=== PATIENT | female | born 1990 | race Caucasian/White ===

== ENCOUNTER 2016-07-03 13:50 | Inpatient (IN) | payer OTHER ==
[2016-07-03 14:04] VITALS: BMI 19.5
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
[2016-07-03] MEDS ORDERED: IBUPROFEN 400 MG TABLET (FP) PO PRN (16:43)
[2016-07-03] MEDS ORDERED: LOPERAMIDE HCL 2 MG CAPSULE PO PRN (16:43)
[2016-07-03] MEDS ORDERED: MAGNESIUM CITRATE 300 ML BOTTLE PO PRN (16:43)
[2016-07-03] MEDS ORDERED: MAG HYDROX/AL HYDROX/SIMETH 30 ML UNIT-DOSE CUP PO PRN (16:43)
[2016-07-03] MEDS ORDERED: MAGNESIUM HYDROX 2400MG/30ML ORAL SUSPENSION 30 ML CUP PO PRN (16:43)
[2016-07-03] MEDS ORDERED: P-EPHED 60MG/TRIPROLIDI 2.5MG TABLET PO PRN (16:43)
[2016-07-03] MEDS ORDERED: ACETAMINOPHEN 325 MG TABLET (FP) PO PRN (16:43)
[2016-07-03] MEDS ORDERED: MENTHOL/PHENOL 1 EACH UD MM PRN (16:43)
[2016-07-03] MEDS ORDERED: NICOTINE POLACRILEX 2 MG GUM BC PRN (16:43)
[2016-07-03] MEDS ORDERED: guaiFENesin/D-METHORPHAN HB 10 ML UNIT-DOSE CUPS PO PRN (16:43)
[2016-07-03] MEDS ORDERED: METHADONE HCL 10 MG TABLET (FOR DETOX USE ONLY) PO ONE ×2 (18:00→23:00)
[2016-07-03] MEDS: chlordiazePOXIDE HCL 25 MG CAPSULE PO PRN (18:51)
[2016-07-03] MEDS: TRIAMCINOLONE ACET 0.1% OINT 15 GM TUBE TP SCH ×2 (18:59→22:16)
[2016-07-03] MEDS: BACITRACIN 0.9 GM PACKET TP SCH (22:16)
[2016-07-03] MEDS: THIAMINE HCL 100 MG TABLET (FP) PO SCH (22:17)
[2016-07-03] MEDS: chlordiazePOXIDE HCL 25 MG CAPSULE PO SCH (22:17)
[2016-07-03] MEDS: diphenhydrAMINE HCL 50 MG CAPSULE PO PRN (22:17)
[2016-07-03 22:50] LABS: URINE APPEARANCE CLEAR; URINE BILIRUBIN NEGATIVE (NEGATIVE); URINE BLOOD NEGATIVE (NEGATIVE); URINE COLOR YELLOW; URINE GLUCOSE (UA) NEGATIVE (NEGATIVE); URINE KETONE NEGATIVE (NEGATIVE); URINE LEUK ESTERASE NEGATIVE (NEGATIVE); URINE NITRITE NEGATIVE (NEGATIVE); URINE PROTEIN NEGATIVE (NEGATIVE); URINE UROBILINOGEN NEGATIVE E.U./dl (0.2-1.0)
[2016-07-04] MEDS: chlordiazePOXIDE HCL 25 MG CAPSULE PO SCH ×4 (05:14→22:13)
--- NOTE | 2016-07-04 08:02 | CONSULT ---
[facility] Psychiatric Consult - Data Date of interview: 07/04/16 Admission source: [facility] Identifying data: Linda is 25 years old female with no psychiatric hospiotalization history intoxicated with: Alcohol, Opioids, with history of PCP abuse Substance Abuse History: - Smoking Cessation. Smoking history: Current every day smoker. Have you smoked in the past 12 months: Yes. Aproximately how many cigarettes per day: 10. Cigars Per Day: 0. Hx Chewing Tobacco Use: No. Initiated information on smoking cessation: Yes. 'Breaking Loose' booklet given : 07/03/16. - Substance & Tx. History. Hx Alcohol Use: Yes. Hx Substance Use : Yes. Substance Use Type: Alcohol, Cocaine, Opiates. Hx Substance Use Treatment: Yes. - Substances Abused. Heroin. Route: Injection. Frequency : Daily. Amount used: 40 bags. Age of first use: 23. Date of Last Use: . Alcohol-vodka. Route: Oral. Frequency: Daily. Amount used: 1 1/2 pts volka. Age of first use: 16. Date of Last Use: 07/03/16 Medical History: Psoriasis, Weight loss, Syncope history Psychiatric History: Denies past psychiatrtic comtact, as per computer there is a depression history Physical/Sexual Abuse/Trauma History: Denies Additional Comment: Observation. Detox Unit Care Protocol Mental Status Exam - Mental Status Exam Alert and Oriented to: Person Cognitive Function: Fair Patient Appearance: Unkempt Mood: Sad Affect: Flat Patient Behavior: Sedated Speech Pattern: Delayed Voice Loudness: Mildly Soft/Quiet Thought Process: Circumstantial Thought Disorder: Being Controlled Hallucinations: Denies Suicidal Ideation: Denies Homicidal Ideation: Denies Insight/Judgement: Fair Sleep: Difficulty falling asleep Appetite: Weight loss Muscle strength/Tone: Normal Gait/Station: Shuffling Additional Comments: Observation. Detox Unit Care Protocol Psychiatric Findings - Problem List ([place] 1, 2,3) (1) Alcohol dependence with uncomplicated withdrawal Current Visit: Yes Status: Acute (2) Nicotine dependence Current Visit: Yes Status: Acute Qualifiers: Nicotine product type: cigarettes Substance use status: in withdrawal Qualified Code(s): F17.213 - Nicotine dependence, cigarettes, with withdrawal (3) Opioid dependence with withdrawal Current Visit: Yes Status: Acute (4) Alcohol dependence Current Visit: No Status: Acute Qualifiers: Substance use status: in withdrawal Complication of substance-induced condition: uncomplicated Qualified Code(s): F10.230 - Alcohol dependence with withdrawal, uncomplicated (5) PCP (phencyclidine) abuse Current Visit: No Status: Acute (6) Substance-induced sleep disorder Current Visit: No Status: Acute (7) Drug-induced mood disorder Current Visit: Yes Status: Acute - Initial Treatment Plan Initial Treatment Plan: Observation. Detox Unit Care Protocol
[2016-07-04] MEDS ORDERED: METHADONE HCL 10 MG TABLET (FOR DETOX USE ONLY) PO SCH (10:00)
--- NOTE | 2016-07-04 10:00 | PN ---
[facility] CIWA - CIWA Score Nausea/Vomitin-No Nausea/No Vomiting Muscle Tremors: 4-Moderate,w/Arms Extend Anxiety: 3 Agitation: 3 Paroxysmal Sweats: 3 Orientation: 0-Oriented Tacttile Disturbances: 0-None Auditory Disturbances: 0-None Visual Disturbances: 0-None Headache: 0-None Present CIWA-Ar Total Score: 13 BHS COWS - Scale Resting Pulse: 1= [place] 81-100 Sweatin=Flushed/Facial Moisture Restless Observation: 1= Difficult to Sit Still Pupil Size: 0= Normal to Room Light Bone or Joint Aches: 2= Severe Diffuse Aches Runny Nose/ Eye Tearin= Nasal Congestion GI Upset > 30mins: 2= Nausea/Diarrhea Tremor Observation of Outstretched Hands: 2= Slight Tremor Visible Yawning Observation: 2= >3x During Session Anxiety or Irritability: 2=Irritable/Anxious Goose Flesh Skin: 0=Smooth Skin COWS Score: 15 S Progress Note (SOAP) Subjective: nasal congestion interrupted sleep sweats shakes body aches nausea Objective: 07/04/16 09:59 Vital Signs Temperature 97.5 F L 07/04/16 06:00 Pulse Rate 70 07/04/16 06:00 Respiratory Rate 16 07/04/16 06:00 Blood Pressure 104/71 07/04/16 06:00 O2 Sat by Pulse Oximetry (%) Laboratory Tests 07/03/16 22:41 Urine Color Yellow Urine Appearance Clear Urine pH 6.0 Ur Specific [place] 1.028 Urine Protein Negative Urine Glucose (UA) Negative Urine Ketones Negative Urine Blood Negative Urine Nitrite Negative Urine Bilirubin Negative Urine Urobilinogen Negative Ur Leukocyte Esterase Negative labs pending awake/alert ambulating no acute distress Assessment: 07/04/16 10:00 withdrawal sx Plan: continue detox increase fluids labs pending tigan po prn motrin/tylenol actifed [place]
[2016-07-04 10:13] LABS: MCH 30.7 pg (25.7-33.7); MCHC 34.2 g/dl (32.0-36.0); MEAN CELL VOLUME 89.7 fl (80-96); MEAN PLT VOLUME 9.7 fl (7.5-11.1); PLATELET COUNT 213 K/MM3 (134-434); RDW 14.3 % (11.6-15.6); WHITE BLOOD COUNT 10.2 K/mm3 (4.0-10.0)
[2016-07-04] MEDS: PRENATAL VITAMINS W/ FOLIC ACID TABLET (FP) PO SCH (10:14)
[2016-07-04] MEDS: TRIAMCINOLONE ACET 0.1% OINT 15 GM TUBE TP SCH ×4 (10:15→22:14)
[2016-07-04] MEDS: BACITRACIN 0.9 GM PACKET TP SCH ×2 (10:15→22:14)
[2016-07-04] MEDS: NICOTINE 14 MG/24 HOURS TOPICAL PATCH TD SCH (10:15)
[2016-07-04 10:32] LABS: ANION GAP 10 (8-16); CO2 25 mmol/L (21-32); GLUCOSE,RANDOM 107 mg/dL (74-106); SGOT/AST 15 U/L (15-37); SGPT/ALT 16 U/L (12-78)
[2016-07-04 10:41] LABS: ALK PHOS 97 U/L (45-117); BILIRUBIN,TOTAL 0.4 mg/dL (0.2-1.0); CALCIUM 9.2 mg/dL (8.5-10.1); CREATININE 0.7 mg/dL (0.55-1.02); TOT PROT 7.2 g/dl (6.4-8.2)
--- NOTE | 2016-07-04 11:05 | EKG ---
Test Reason : Blood Pressure : / mmHG Vent. Rate : 072 BPM Atrial Rate : 072 BPM P-R Int : 168 ms QRS Dur : 098 ms QT Int : 398 ms P-R-T Axes : 063 062 059 degrees QTc Int : 435 ms NORMAL SINUS RHYTHM NORMAL ECG WHEN COMPARED WITH ECG OF 02-AUG-2014 12:23, QT HAS LENGTHENED Confirmed by RAI ASHER, KAMALA ([id number]) on 07/04/2016 11:05:15 AM Referred By: Aki Kaba Confirmed By:KAMALA ATWOOD MD
[2016-07-04] MEDS: diphenhydrAMINE HCL 50 MG CAPSULE PO PRN (22:14)
[2016-07-04] MEDS: THIAMINE HCL 100 MG TABLET (FP) PO SCH (22:14)
[2016-07-05] MEDS: chlordiazePOXIDE HCL 25 MG CAPSULE PO SCH ×3 (05:31→17:39)
[2016-07-05] MEDS ORDERED: hydrOXYzine PAMOATE 50 MG CAPSULE (FP) PO PRN ×2 (09:04→14:06)
[2016-07-05] MEDS ORDERED: METHADONE HCL 5 MG TABLET (FOR DETOX USE ONLY) PO SCH (10:00)
[2016-07-05] MEDS: BACITRACIN 0.9 GM PACKET TP SCH (10:24)
[2016-07-05] MEDS: PRENATAL VITAMINS W/ FOLIC ACID TABLET (FP) PO SCH (10:24)
[2016-07-05] MEDS: TRIAMCINOLONE ACET 0.1% OINT 15 GM TUBE TP SCH ×3 (10:24→17:39)
[2016-07-05] MEDS: NICOTINE 14 MG/24 HOURS TOPICAL PATCH TD SCH (10:24)
--- NOTE | 2016-07-05 11:34 | PN ---
S CIWA - CIWA Score Nausea/Vomitin Muscle Tremors: 3 Anxiety: 4-Mod. Anxious/Guarded Agitation: 3 Paroxysmal Sweats: 3 Orientation: 0-Oriented Tacttile Disturbances: 1-Very Mild Itch/Numbness Auditory Disturbances: 0-None Visual Disturbances: 0-None Headache: 0-None Present CIWA-Ar Total Score: 16 BHS COWS - Scale Resting Pulse: 0= [place] 80 or Below Sweatin=Flushed/Facial Moisture Restless Observation: 3= Extraneous Movement Pupil Size: 1= Pupils >than Normal Bone or Joint Aches: 1= Mild Discomfort Runny Nose/ Eye Tearin= Nasal Congestion GI Upset > 30mins: 1= Stomach Cramp Tremor Observation of Outstretched Hands: 2= Slight Tremor Visible Yawning Observation: 0= None Anxiety or Irritability: 2=Irritable/Anxious Goose Flesh Skin: 0=Smooth Skin COWS Score: 13 BHS Progress Note (SOAP) Subjective: interrupted sleep, sweats, shakes , anxiety Objective: 07/05/16 11:32 Vital Signs Temperature 98.5 F 07/05/16 09:39 Pulse Rate 82 07/05/16 09:39 Respiratory Rate 18 07/05/16 09:39 Blood Pressure 122/84 07/05/16 09:39 O2 Sat by Pulse Oximetry (%) Laboratory Tests 07/03/16 07/04/16 07/04/16 22:41 06:00 06:00 WBC 10.2 H D RBC 4.26 Hgb 13.1 Hct 38.2 MCV 89.7 MCHC 34.2 RDW 14.3 Plt Count 213 MPV 9.7 Sodium 137 Potassium 4.2 Chloride 102 Carbon Dioxide 25 Anion Gap 10 BUN 15 D Creatinine 0.7 Creat Clearance w eGFR > 60 Random Glucose 107 H Calcium 9.2 Total Bilirubin 0.4 D AST 15 ALT 16 D Alkaline Phosphatase 97 Total Protein 7.2 Albumin 4.0 Urine Color Yellow Urine Appearance Clear Urine pH 6.0 Ur Specific [place] 1.028 Urine Protein Negative Urine Glucose (UA) Negative Urine Ketones Negative Urine Blood Negative Urine Nitrite Negative Urine Bilirubin Negative Urine Urobilinogen Negative Ur Leukocyte Esterase Negative RPR Titer 07/04/16 06:00 WBC RBC Hgb Hct MCV MCHC RDW Plt Count MPV Sodium Potassium Chloride Carbon Dioxide Anion Gap BUN Creatinine Creat Clearance w eGFR Random Glucose Calcium Total Bilirubin AST ALT Alkaline Phosphatase Total Protein Albumin Urine Color Urine Appearance Urine pH Ur Specific [place] Urine Protein Urine Glucose (UA) Urine Ketones Urine Blood Urine Nitrite Urine Bilirubin Urine Urobilinogen Ur Leukocyte Esterase RPR Titer Nonreactive pt aox3 in nad ambulating , anxious , restless Assessment: 07/05/16 11:33 withdrawal sx;s anxiety Plan: cont. detox increase fluids pysch eval vistaril prn
[2016-07-05] MEDS: chlordiazePOXIDE HCL 25 MG CAPSULE PO PRN (12:27)
--- NOTE | 2016-07-05 14:06 | PN ---
Psychiatric Progress Note Vital Signs: Vital Signs Period Temp Pulse Resp BP Sys/Wesley Pulse Ox Last 24 Hr 97.1 F-98.5 F 60-82 16-18 91-135/59-84 Date of Session: 07/05/16 Chief Complaint:: Anxiety HPI: Patient reports anxiety and agitations , reporta taking prior to admission Seroquel 100mg po qhs, asking medications for anxiety Current Medications: Active Medications Generic Name Dose Route Start Last Admin Trade Name Freq PRN Reason Stop Dose Admin Acetaminophen 650 mg 07/03/16 16:43 Tylenol - PO Q4H PRN FEVER OR PAIN Al Hydroxide/Mg Hydroxide 30 ml 07/03/16 16:43 Mylanta Oral Suspension - PO Q6H PRN DYSPEPSIA Bacitracin 0.9 gm 07/03/16 22:00 07/05/16 10:24 Bacitracin - TP 0.9 gm BID VARUN Administration Chlordiazepoxide HCl 10 mg 07/06/16 23:00 Librium - PO 07/07/16 17:01 [id number] VARUN Chlordiazepoxide HCl 25 mg 07/03/16 16:43 07/05/16 12:27 Librium - PO 07/06/16 16:44 25 mg Q4H PRN Administration WITHDRAWAL(CONT SUBST) Chlordiazepoxide HCl 25 mg 07/04/16 23:00 07/05/16 10:24 Librium - PO 07/05/16 17:01 25 mg [id number] VARUN Administration Chlordiazepoxide HCl 15 mg 07/05/16 23:00 Librium - PO 07/06/16 17:01 [id number] VARUN Diphenhydramine HCl 50 mg 07/03/16 16:43 07/04/16 22:14 Benadryl - PO 50 mg HSMR1 PRN Administration INSOMNIA Eucalyptus/Menthol/Phenol/Sorbitol 1 each 07/03/16 16:43 Cepastat Lozenge - MM Q4H PRN SORE THROAT Guaifenesin 10 ml 07/03/16 16:43 Robitussin Dm - PO Q6H PRN COUGH Hydroxyzine Pamoate 50 mg 07/05/16 09:04 07/05/16 09:23 Vistaril - PO 50 mg Q6H PRN Administration FOR ITCHING Ibuprofen 400 mg 07/03/16 16:43 Motrin - PO Q6H PRN SEVERE PAIN Loperamide HCl 4 mg 07/03/16 16:43 Imodium - PO Q6H PRN DIARRHEA Magnesium Citrate 300 ml 07/03/16 16:43 Citroma - PO Q48H PRN CONSTIPATION Magnesium Hydroxide 30 ml 07/03/16 16:43 Milk Of Magnesia - PO DAILY PRN CONSTIPATION Methadone HCl 10 mg 07/07/16 10:00 Dolophine - PO 07/07/16 10:01 DAILY VARUN Methadone HCl 15 mg 07/05/16 10:00 07/05/16 10:24 Dolophine - PO 07/06/16 10:01 15 mg DAILY VARUN Administration Methadone HCl 5 mg 07/08/16 06:00 Dolophine - PO 07/08/16 06:01 DAILY@0600 [facility] Nicotine 14 mg 07/04/16 10:00 07/05/16 10:24 Nicoderm Patch - TD Not Given DAILY [facility] Nicotine Polacrilex 2 mg 07/03/16 16:43 Nicorette Gum - BC Q2H PRN NICOTINE REPLACEMENT RX Multivit/Folic Acid/Iron 1 tab 07/04/16 10:00 07/05/16 10:24 Vitamins (Sjr) - PO 1 tab DAILY [facility] Administration Pseudoephedrine/Triprolidine 1 combo 07/03/16 16:43 Actifed - PO TID PRN NASAL CONGESTION Thiamine HCl 100 mg 07/03/16 22:00 07/04/16 22:14 Vitamin B1 - PO 100 mg HS [facility] Administration Triamcinolone Acetonide 1 applic 07/03/16 18:00 07/05/16 10:24 Aristocort 0.1% Ointment - TP 1 applic QID VARUN Administration Medication(s) Change(s): Seroquel 100mg po qhs. Vistaril 50mg po prn q4 for anxiety Mental Status Exam - Mental Status Exam Alert and Oriented to: Person Cognitive Function: Fair Patient Appearance: Unkempt Mood: Nervous, Anxious Affect: Mood Congruent Patient Behavior: Cooperative Speech Pattern: Appropriate Voice Loudness: Normal Thought Process: Goal Oriented Thought Disorder: Being Controlled Hallucinations: Denies Suicidal Ideation: Denies Homicidal Ideation: Denies Insight/Judgement: Fair Sleep: Difficulty falling asleep Appetite: Weight loss Muscle strength/Tone: Normal Gait/Station: Normal Additional Comments: Seroquel 100mg po qhs. Vistaril 50mg po prn q4 for anxiety Psychiatric Treatment Plan - Problem List (1) Alcohol dependence with uncomplicated withdrawal Current Visit: Yes (2) Nicotine dependence Current Visit: Yes Qualifiers: Nicotine product type: cigarettes Substance use status: in withdrawal Qualified Code(s): F17.213 - Nicotine dependence, cigarettes, with withdrawal (3) Opioid dependence with withdrawal Current Visit: Yes (4) Alcohol dependence Current Visit: No Qualifiers: Substance use status: in withdrawal Complication of substance-induced condition: uncomplicated Qualified Code(s): F10.230 - Alcohol dependence with withdrawal, uncomplicated (5) PCP (phencyclidine) abuse Current Visit: No (6) Substance-induced sleep disorder Current Visit: No (7) Drug-induced mood disorder Current Visit: Yes Initial treatment plan: Seroquel 100mg po qhs. Vistaril 50mg po prn q4 for anxiety
[2016-07-05 19:44] VITALS: BP 100/56; PULSE 70; TEMP 98.8
--- NOTE | 2016-07-05 20:50 | PN ---
S Progress Note Note: PATIENT DID NOT WANT TO COMPLETE TREATMENT,SINGED RELEASE AMA,DID NOT WANT TO WAIT
--- NOTE | 2016-07-05 20:55 | DS ---
[facility] Detox Discharge Summary Admission Date: 07/03/16 Discharge Date: 07/05/16 - History Present History: Alcohol Dependence, Opioid Dependence Additional Comments: PATIENT DID NOT WANT TO COMPLETE TREATMENT,SIGNED RELEASE AMA.DID NOT WANT TO WAIT Pertinent Past History: PSORIASIS WEIGHT DECREASED NICOTINE DEPENDENCE DEPRESSION - Physical Exam Results Vital Signs: Vital Signs Temperature 98.8 F 07/05/16 19:43 Pulse Rate 70 07/05/16 19:43 Respiratory Rate 16 07/05/16 19:43 Blood Pressure 100/56 07/05/16 19:43 O2 Sat by Pulse Oximetry (%) Pertinent Admission Physical Exam Findings: WITHDRAWAL SYMPTOM - Medication Discharge Medications: Ambulatory Orders Quetiapine Fumarate [Seroquel] 100 mg PO HS 07/05/16 Quetiapine Fumarate [Seroquel] 100 mg PO HS #30 tablet 07/05/16 - Diagnosis (1) Alcohol dependence with uncomplicated withdrawal Status: Acute (2) Drug-induced mood disorder Status: Acute (3) Nicotine dependence Status: Acute Qualifiers: Nicotine product type: cigarettes Substance use status: in withdrawal Qualified Code(s): F17.213 - Nicotine dependence, cigarettes, with withdrawal (4) Opioid dependence with withdrawal Status: Acute (5) Psoriasis Status: Acute (6) Weight decreased Status: Acute - AMA Did Patient Leave Against Medical Advice: Yes
[2016-07-05] MEDS ORDERED: QUEtiapine FUMARATE 100 MG TABLET (FP) PO SCH (22:00)
[2016-07-05] MEDS ORDERED: chlordiazePOXIDE 5 MG CAPSULE PO SCH (23:00)
[2016-07-06] MEDS ORDERED: chlordiazePOXIDE HCL 10 MG CAPSULE PO SCH (23:00)
[2016-07-07] MEDS ORDERED: METHADONE HCL 10 MG TABLET (FOR DETOX USE ONLY) PO SCH (10:00)
[2016-07-08] MEDS ORDERED: METHADONE HCL 5 MG TABLET (FOR DETOX USE ONLY) PO SCH (06:00)
== END 2016-07-05 19:47 | disposition left against medical advice (07) | DRG 770 ==
LOC: YASAS 13:50 → Y6N 17:48
PROVIDERS: ADMIT Internal Medicine Addiction Medicine; ATTEND Internal Medicine Addiction Medicine
PROC: HZ2ZZZZ Detoxification Services for Substance Abuse Treatment (ICD-10-PCS; principal; 2016-07-03)
DX: F11.23 Opioid dependence with withdrawal (principal); F10.230 Alcohol dependence with withdrawal, uncomplicated; F17.210 Nicotine dependence, cigarettes, uncomplicated; F19.24 Other psychoactive substance dependence with psychoactive substance-induced mood disorder; F19.282 Other psychoactive substance dependence with psychoactive substance-induced sleep disorder; F34.1 Dysthymic disorder; F41.9 Anxiety disorder, unspecified; L40.9 Psoriasis, unspecified; R00.0 Tachycardia, unspecified; Z87.898 Personal history of other specified conditions
CPT/HCPCS: 36415; 80053; 81003; 85027; 86593; 93005; 93010

== ENCOUNTER 2016-07-08 12:07 | Inpatient (IN) | payer OTHER ==
[2016-07-08 12:46] VITALS: BMI 19.0
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
[2016-07-08] MEDS ORDERED: P-EPHED 60MG/TRIPROLIDI 2.5MG TABLET PO PRN (16:35)
[2016-07-08] MEDS ORDERED: MENTHOL/PHENOL 1 EACH UD MM PRN (16:35)
[2016-07-08] MEDS ORDERED: METHADONE HCL 10 MG TABLET (FOR DETOX USE ONLY) PO ONE ×2 (16:35→23:00)
[2016-07-08] MEDS ORDERED: MAG HYDROX/AL HYDROX/SIMETH 30 ML UNIT-DOSE CUP PO PRN (16:35)
[2016-07-08] MEDS ORDERED: MAGNESIUM HYDROX 2400MG/30ML ORAL SUSPENSION 30 ML CUP PO PRN (16:35)
[2016-07-08] MEDS ORDERED: chlordiazePOXIDE HCL 25 MG CAPSULE PO ONE (16:35)
[2016-07-08] MEDS ORDERED: LOPERAMIDE HCL 2 MG CAPSULE PO PRN (16:35)
[2016-07-08] MEDS ORDERED: guaiFENesin/D-METHORPHAN HB 10 ML UNIT-DOSE CUPS PO PRN (16:35)
[2016-07-08] MEDS ORDERED: NICOTINE POLACRILEX 2 MG GUM BC PRN (16:35)
[2016-07-08] MEDS ORDERED: MAGNESIUM CITRATE 300 ML BOTTLE PO PRN (16:35)
[2016-07-08] MEDS ORDERED: ALBUTEROL SO4 6.7 GM HFA INHALER IH PRN (16:40)
[2016-07-08] MEDS: chlordiazePOXIDE HCL 25 MG CAPSULE PO SCH ×2 (18:20→22:36)
[2016-07-08] MEDS: NICOTINE 21 MG/24 HOURS TOPICAL PATCH TD SCH (18:21)
[2016-07-08] MEDS: BACITRACIN 30 GM TUBE TOPICAL OINTMENT TP SCH (22:35)
[2016-07-08] MEDS: THIAMINE HCL 100 MG TABLET (FP) PO SCH (22:35)
[2016-07-08] MEDS: diphenhydrAMINE HCL 50 MG CAPSULE PO PRN (22:36)
[2016-07-08] MEDS: SULFAMETHOXAZOLE/TRIMETHOPRIM 800MG/160MG D.S. TABLET PO SCH (22:36)
[2016-07-09] MEDS: chlordiazePOXIDE HCL 25 MG CAPSULE PO SCH ×4 (05:37→22:28)
[2016-07-09] MEDS ORDERED: METHADONE HCL 10 MG TABLET (FOR DETOX USE ONLY) PO SCH (10:00)
[2016-07-09 10:32] LABS: ALBUMIN 3.4 g/dl (3.4-5.0); ALK PHOS 92 U/L (45-117); ANION GAP 11 (8-16); BILIRUBIN,TOTAL 0.5 mg/dL (0.2-1.0); CALCIUM 8.4 mg/dL (8.5-10.1); CO2 27 mmol/L (21-32); CREATININE 0.7 mg/dL (0.55-1.02); GLUCOSE,RANDOM 89 mg/dL (74-106); SGOT/AST 25 U/L (15-37); SGPT/ALT 20 U/L (12-78); TOT PROT 6.3 g/dl (6.4-8.2)
[2016-07-09] MEDS: PRENATAL VITAMINS W/ FOLIC ACID TABLET (FP) PO SCH (10:36)
[2016-07-09] MEDS: SULFAMETHOXAZOLE/TRIMETHOPRIM 800MG/160MG D.S. TABLET PO SCH ×2 (10:37→22:28)
[2016-07-09] MEDS: NICOTINE 21 MG/24 HOURS TOPICAL PATCH TD SCH (10:38)
[2016-07-09] MEDS: BACITRACIN 30 GM TUBE TOPICAL OINTMENT TP SCH ×2 (10:38→22:28)
--- NOTE | 2016-07-09 12:41 | EKG ---
Test Reason : Blood Pressure : / mmHG Vent. Rate : 079 BPM Atrial Rate : 079 BPM P-R Int : 162 ms QRS Dur : 082 ms QT Int : 378 ms P-R-T Axes : 055 073 047 degrees QTc Int : 433 ms NORMAL SINUS RHYTHM NONSPECIFIC T WAVE ABNORMALITY ABNORMAL ECG WHEN COMPARED WITH ECG OF 03-JUL-2016 17:58, T WAVE VARIATION Confirmed by RYAN CROWLEY MD ([id number]) on 07/09/2016 12:41:24 PM Referred By: Gabe Mejia Confirmed By:RYAN CROWLEY MD
[2016-07-09] MEDS: chlordiazePOXIDE HCL 25 MG CAPSULE PO PRN (15:54)
--- NOTE | 2016-07-09 16:17 | PN ---
S CIWA - CIWA Score Nausea/Vomitin Muscle Tremors: 2 Anxiety: 4-Mod. Anxious/Guarded Agitation: 2 Paroxysmal Sweats: 3 Orientation: 0-Oriented Tacttile Disturbances: 1-Very Mild Itch/Numbness Auditory Disturbances: 0-None Visual Disturbances: 0-None Headache: 0-None Present CIWA-Ar Total Score: 14 BHS COWS - Scale Resting Pulse: 2= ID 101-120 Sweatin=Flushed/Facial Moisture Restless Observation: 1= Difficult to Sit Still Pupil Size: 1= Pupils >than Normal Bone or Joint Aches: 1= Mild Discomfort Runny Nose/ Eye Tearin= Nasal Congestion GI Upset > 30mins: 1= Stomach Cramp Tremor Observation of Outstretched Hands: 1= Tremor [place], Not Seen Yawning Observation: 0= None Anxiety or Irritability: 2=Irritable/Anxious Goose Flesh Skin: 0=Smooth Skin COWS Score: 12 BHS Progress Note (SOAP) Subjective: INTERRUPTED SLEEP, SWEATS, ANXIETY Objective: 07/09/16 16:16 Vital Signs Temperature 97.9 F 07/09/16 14:09 Pulse Rate 85 07/09/16 14:09 Respiratory Rate 16 07/09/16 14:09 Blood Pressure 101/73 07/09/16 14:09 O2 Sat by Pulse Oximetry (%) Laboratory Tests 07/09/16 07/09/16 07:00 07:00 Sodium 141 Potassium 3.7 Chloride 103 Carbon Dioxide 27 Anion Gap 11 BUN 8 D Creatinine 0.7 Creat Clearance w eGFR > 60 Random Glucose 89 Calcium 8.4 L Total Bilirubin 0.5 D AST 25 D ALT 20 D Alkaline Phosphatase 92 Total Protein 6.3 L Albumin 3.4 RPR Titer Nonreactive PENDING LABS PT AOX3 ANXIOUS AMBULATING Assessment: 07/09/16 16:16 WITHDAWAL SX Plan: CONT. DETOX INCREASE FLUIDS PYSCH EVAL
--- NOTE | 2016-07-09 17:07 | CONSULT ---
[facility] Psychiatric Consult - Data Date of interview: 07/09/16 Admission source: [facility] Identifying data: Another admission to [facility] for this female seeking detox treatment on for alcohol,heroin and cocaine dependence.Patient is single,a mother of one,currently homeless (self-report), unemployed and supported by relatives. Substance Abuse History: - Smoking Cessation. Smoking history: Current every day smoker. Have you smoked in the past 12 months: Yes. Aproximately how many cigarettes per day: 10. Cigars Per Day: 0. Hx Chewing Tobacco Use: No. Initiated information on smoking cessation: Yes. 'Breaking Loose' booklet given : 07/08/16 (GIVEN ON UNIT.). - Substance & Tx. History. Hx Alcohol Use: Yes. Hx Substance Use: Yes. Substance Use Type: Alcohol, Cocaine, Heroin. Hx Substance Use Treatment: Yes (Previous Detox admissions at [facility] - Substances Abused. Alcohol. Route: Oral. Frequency: Daily. Amount used: vodka 1 pint. Age of first use: 16. Date of Last Use: 07/08/16. Heroin. Route: Injection. Frequency: Daily. Amount used: 40 bags. Age of first use: 23. Date of Last Use: 07/08/16. Cocaine. Route: Smoking. Frequency: 1-3 times last 30 days. Amount used: $ 20 Bag. Age of first use: 20. Date of Last Use: 07/05/16. Confirmed by patient. Medical History: Patient endorses good general health.Noted history of bronchial asthma and psoriasis. Psychiatric History: Patient denies history of psychiatric illness.Ms Izaguirre does ,however,endorse chronic insomnia and she had requested seroquel at bedtime.Already seen, on admission,by attending psychiatrist Dr Albright and offered seroquel (scripts already sent to [facility] on 07/04/16) .This re-consult was sought to get order entered for seroquel at bedtime.Patient denies history of suicide attempts. Physical/Sexual Abuse/Trauma History: Patient denies. Additional Comment: Urine Drug Screen Results: NABEEL-Cocaine, OPI-Opiates, BZO- Benzodiazepines, OXY-Oxycodone.Noted. Mental Status Exam - Mental Status Exam Alert and Oriented to: Time, Place, Person Cognitive Function: Good Patient Appearance: Well Groomed Mood: Withdrawn, Anxious Affect: Mood Congruent Patient Behavior: Fatigued, Appropriate, Cooperative Speech Pattern: Clear Voice Loudness: Normal Thought Process: Goal Oriented Thought Disorder: Not Present Hallucinations: Denies Suicidal Ideation: Denies Homicidal Ideation: Denies Insight/Judgement: Poor Sleep: Poorly, Difficulty falling asleep Appetite: Good Muscle strength/Tone: Normal Gait/Station: Normal Psychiatric Findings - Problem List ([place] 1, 2,3) (1) Alcohol dependence with uncomplicated withdrawal Current Visit: Yes Status: Acute (2) Cocaine dependence, uncomplicated Current Visit: Yes Status: Acute (3) Opioid dependence with withdrawal Current Visit: Yes Status: Acute (4) Nicotine dependence Current Visit: Yes Status: Acute Qualifiers: Nicotine product type: cigarettes Substance use status: in withdrawal Qualified Code(s): F17.213 - Nicotine dependence, cigarettes, with withdrawal (5) Drug-induced mood disorder Current Visit: Yes Status: Acute (6) Asthma Current Visit: Yes Status: Chronic Qualifiers: Asthma severity: mild intermittent Asthma complication type: uncomplicated Qualified Code(s): J45.20 - Mild intermittent asthma, uncomplicated (7) Psoriasis Current Visit: Yes Status: Chronic (8) Insomnia Current Visit: Yes Status: Acute - Initial Treatment Plan Initial Treatment Plan: Psychoeducation.Detoxification in progress.Seroquel 100 mg po hs.Ordered at patient's request.Side effects/benefits discussed with the patient.Made aware of the risk of metabolic syndrome,movement disorders ( dystonias,dyskinesias,akathisia,akinesia),neuroleptic malignant syndrome, oversedation/accidental falls,cardiac issues (QT prolongation) and hepatic dysfunction.Seroquel is used in this particular context for its hypnotic effectiveness at low doses.Patient is informed of this commonly accepted treatment strategy.She consents (verbally) to follow this plan of care.Observation.
[2016-07-09 17:17] LABS: URINE APPEARANCE TURBID; URINE BILIRUBIN NEGATIVE (NEGATIVE); URINE BLOOD NEGATIVE (NEGATIVE); URINE COLOR YELLOW; URINE GLUCOSE (UA) NEGATIVE (NEGATIVE); URINE KETONE NEGATIVE (NEGATIVE); URINE NITRITE NEGATIVE (NEGATIVE); URINE UROBILINOGEN 4.0 E.U/dl E.U./dl (0.2-1.0)
[2016-07-09 17:42] LABS: URINE LEUK ESTERASE TRACE (NEGATIVE); URINE PROTEIN 1+ (NEGATIVE)
[2016-07-09 17:50] LABS: URINE BACTERIA RARE /hpf (NONE SEEN); URINE MUCUS RARE; URINE RBC 2 /hpf (0-3); URINE WBC 32 /hpf (3-5); YEAST MANY
[2016-07-09] MEDS: THIAMINE HCL 100 MG TABLET (FP) PO SCH (22:28)
[2016-07-09] MEDS: QUEtiapine FUMARATE 100 MG TABLET (FP) PO SCH (22:28)
[2016-07-10] MEDS: chlordiazePOXIDE HCL 25 MG CAPSULE PO SCH ×2 (05:46→10:22)
[2016-07-10] MEDS: NICOTINE 21 MG/24 HOURS TOPICAL PATCH TD SCH (10:22)
[2016-07-10] MEDS: METHADONE HCL 5 MG TABLET (FOR DETOX USE ONLY) PO SCH (10:22)
[2016-07-10] MEDS: PRENATAL VITAMINS W/ FOLIC ACID TABLET (FP) PO SCH (10:22)
--- NOTE | 2016-07-10 10:45 | PN ---
[facility] CIWA - CIWA Score Nausea/Vomitin-No Nausea/No Vomiting Muscle Tremors: 3 Anxiety: 3 Agitation: 4-Moderately Restless Paroxysmal Sweats: 2 Orientation: 0-Oriented Tacttile Disturbances: 0-None Auditory Disturbances: 0-None Visual Disturbances: 0-None Headache: 0-None Present CIWA-Ar Total Score: 12 BHS COWS - Scale Resting Pulse: 1= MD 81-100 Sweatin=Flushed/Facial Moisture Restless Observation: 1= Difficult to Sit Still Pupil Size: 0= Normal to Room Light Bone or Joint Aches: 2= Severe Diffuse Aches Runny Nose/ Eye Tearin= None GI Upset > 30mins: 0= None Tremor Observation of Outstretched Hands: 1= Tremor [place], Not Seen Yawning Observation: 2= >3x During Session Anxiety or Irritability: 2=Irritable/Anxious Goose Flesh Skin: 0=Smooth Skin COWS Score: 11 [facility] Progress Note (SOAP) Subjective: irritable agitation anxiety sweats mild shakes Objective: 07/10/16 10:45 Vital Signs Temperature 96.6 F L 07/10/16 10:05 Pulse Rate 93 H 07/10/16 10:05 Respiratory Rate 16 07/10/16 10:05 Blood Pressure 102/69 07/10/16 10:05 O2 Sat by Pulse Oximetry (%) Laboratory Tests 07/09/16 07/09/16 07/09/16 07:00 07:00 16:30 Sodium 141 Potassium 3.7 Chloride 103 Carbon Dioxide 27 Anion Gap 11 BUN 8 D Creatinine 0.7 Creat Clearance w eGFR > 60 Random Glucose 89 Calcium 8.4 L Total Bilirubin 0.5 D AST 25 D ALT 20 D Alkaline Phosphatase 92 Total Protein 6.3 L Albumin 3.4 Urine Color Yellow Urine Appearance Turbid Urine pH 7.0 Ur Specific [place] 1.025 Urine Protein 1+ H Urine Glucose (UA) Negative Urine Ketones Negative Urine Blood Negative Urine Nitrite Negative Urine Bilirubin Negative Urine Urobilinogen 4.0 e.u/dl H Ur Leukocyte Esterase Trace H Urine RBC 2 Urine WBC 32 Urine Bacteria Rare Urine Mucus Rare Urine Yeast Many RPR Titer Nonreactive awake/alert ambulating no acute distress Assessment: 07/10/16 10:46 withdrawal sx Plan: continue detox increase fluids
[2016-07-10] MEDS: BACITRACIN 30 GM TUBE TOPICAL OINTMENT TP SCH ×2 (10:54→22:43)
[2016-07-10] MEDS: SULFAMETHOXAZOLE/TRIMETHOPRIM 800MG/160MG D.S. TABLET PO SCH ×2 (10:59→22:41)
[2016-07-10] MEDS: hydrOXYzine PAMOATE 50 MG CAPSULE (FP) PO PRN (15:45)
[2016-07-10] MEDS: chlordiazePOXIDE 5 MG CAPSULE PO SCH ×2 (17:29→22:42)
[2016-07-10] MEDS: THIAMINE HCL 100 MG TABLET (FP) PO SCH (22:41)
[2016-07-10] MEDS: QUEtiapine FUMARATE 100 MG TABLET (FP) PO SCH (22:41)
[2016-07-11] MEDS: chlordiazePOXIDE 5 MG CAPSULE PO SCH ×2 (06:24→10:53)
[2016-07-11] MEDS: SULFAMETHOXAZOLE/TRIMETHOPRIM 800MG/160MG D.S. TABLET PO SCH ×2 (10:53→22:36)
[2016-07-11] MEDS: NICOTINE 21 MG/24 HOURS TOPICAL PATCH TD SCH (10:53)
[2016-07-11] MEDS: METHADONE HCL 5 MG TABLET (FOR DETOX USE ONLY) PO SCH (10:53)
[2016-07-11] MEDS: PRENATAL VITAMINS W/ FOLIC ACID TABLET (FP) PO SCH (10:53)
[2016-07-11] MEDS: BACITRACIN 30 GM TUBE TOPICAL OINTMENT TP SCH ×2 (10:55→22:37)
[2016-07-11] MEDS ORDERED: FLUCONAZOLE 50 MG TABLET PO ONE (12:35)
--- NOTE | 2016-07-11 12:37 | PN ---
[facility] Progress Note (SOAP) Subjective: mild upset stomach Objective: 07/11/16 12:36 Vital Signs Temperature 95.9 F L 07/11/16 10:00 Pulse Rate 86 07/11/16 10:00 Respiratory Rate 18 07/11/16 10:00 Blood Pressure 105/75 07/11/16 10:00 O2 Sat by Pulse Oximetry (%) Laboratory Tests 07/09/16 07/09/16 07/09/16 07:00 07:00 07:00 WBC Cancelled Corrected WBC (auto) Cancelled RBC Cancelled Hgb Cancelled Hct Cancelled MCV Cancelled MCHC Cancelled RDW Cancelled Plt Count Cancelled MPV Cancelled Differential Comment Cancelled Platelet Estimate Cancelled Platelet Comment Cancelled RBC Morphology Cancelled Sodium 141 Potassium 3.7 Chloride 103 Carbon Dioxide 27 Anion Gap 11 BUN 8 D Creatinine 0.7 Creat Clearance w eGFR > 60 Random Glucose 89 Calcium 8.4 L Total Bilirubin 0.5 D AST 25 D ALT 20 D Alkaline Phosphatase 92 Total Protein 6.3 L Albumin 3.4 Urine Color Urine Appearance Urine pH Ur Specific [place] Urine Protein Urine Glucose (UA) Urine Ketones Urine Blood Urine Nitrite Urine Bilirubin Urine Urobilinogen Ur Leukocyte Esterase Urine RBC Urine WBC Urine Bacteria Urine Mucus Urine Yeast RPR Titer Nonreactive 07/09/16 16:30 WBC Corrected WBC (auto) RBC Hgb Hct MCV MCHC RDW Plt Count MPV Differential Comment Platelet Estimate Platelet Comment RBC Morphology Sodium Potassium Chloride Carbon Dioxide Anion Gap BUN Creatinine Creat Clearance w eGFR Random Glucose Calcium Total Bilirubin AST ALT Alkaline Phosphatase Total Protein Albumin Urine Color Yellow Urine Appearance Turbid Urine pH 7.0 Ur Specific [place] 1.025 Urine Protein 1+ H Urine Glucose (UA) Negative Urine Ketones Negative Urine Blood Negative Urine Nitrite Negative Urine Bilirubin Negative Urine Urobilinogen 4.0 e.u/dl H Ur Leukocyte Esterase Trace H Urine RBC 2 Urine WBC 32 Urine Bacteria Rare Urine Mucus Rare Urine Yeast Many RPR Titer pt aox3 in nad ambulating Assessment: 07/11/16 12:36 withdrawal sx's Plan: cont detox increase fluids
[2016-07-11] MEDS: chlordiazePOXIDE HCL 25 MG CAPSULE PO PRN (12:58)
[2016-07-11] MEDS: chlordiazePOXIDE HCL 10 MG CAPSULE PO SCH ×2 (17:09→22:36)
[2016-07-11] MEDS: hydrOXYzine PAMOATE 50 MG CAPSULE (FP) PO PRN (17:57)
[2016-07-11] MEDS: IBUPROFEN 400 MG TABLET (FP) PO PRN (20:58)
[2016-07-11] MEDS: QUEtiapine FUMARATE 100 MG TABLET (FP) PO SCH (22:36)
[2016-07-11] MEDS: THIAMINE HCL 100 MG TABLET (FP) PO SCH (22:36)
[2016-07-12] MEDS: diphenhydrAMINE HCL 50 MG CAPSULE PO PRN ×2 (01:55→22:43)
[2016-07-12] MEDS: chlordiazePOXIDE HCL 10 MG CAPSULE PO SCH ×2 (05:29→10:39)
[2016-07-12] MEDS ORDERED: METHADONE HCL 10 MG TABLET (FOR DETOX USE ONLY) PO SCH (10:00)
--- NOTE | 2016-07-12 10:28 | PN ---
BHS Progress Note (SOAP) Subjective: little sweats feeling alot better Objective: 07/12/16 10:27 Vital Signs Temperature 97.6 F 07/12/16 06:54 Pulse Rate 60 07/12/16 06:54 Respiratory Rate 16 07/12/16 06:54 Blood Pressure 101/60 07/12/16 06:54 O2 Sat by Pulse Oximetry (%) awake/alert ambulating no acute distress Assessment: 07/12/16 10:27 withdrawal sx Plan: continue detox increase fluids d/c in am
[2016-07-12] MEDS: PRENATAL VITAMINS W/ FOLIC ACID TABLET (FP) PO SCH (10:39)
[2016-07-12] MEDS: SULFAMETHOXAZOLE/TRIMETHOPRIM 800MG/160MG D.S. TABLET PO SCH ×2 (10:39→22:43)
[2016-07-12] MEDS: NICOTINE 21 MG/24 HOURS TOPICAL PATCH TD SCH (10:39)
[2016-07-12] MEDS: BACITRACIN 30 GM TUBE TOPICAL OINTMENT TP SCH ×2 (10:40→22:43)
[2016-07-12] MEDS: ACETAMINOPHEN 325 MG TABLET (FP) PO PRN (11:17)
[2016-07-12] MEDS: hydrOXYzine PAMOATE 50 MG CAPSULE (FP) PO PRN ×2 (12:51→17:58)
[2016-07-12] MEDS: IBUPROFEN 400 MG TABLET (FP) PO PRN (17:59)
[2016-07-12] MEDS: QUEtiapine FUMARATE 100 MG TABLET (FP) PO SCH (22:44)
[2016-07-12] MEDS: THIAMINE HCL 100 MG TABLET (FP) PO SCH (22:44)
[2016-07-12 22:47] VITALS: TEMP 97.7
[2016-07-13] MEDS: ACETAMINOPHEN 325 MG TABLET (FP) PO PRN (05:56)
[2016-07-13] MEDS ORDERED: METHADONE HCL 5 MG TABLET (FOR DETOX USE ONLY) PO SCH (06:00)
[2016-07-13 06:32] VITALS: BP 102/55; PULSE 67
--- NOTE | 2016-07-13 08:51 | DS ---
[facility] Detox Discharge Summary Admission Date: 07/08/16 Discharge Date: 07/13/16 - History Present History: Alcohol Dependence, Cocaine Dependence, Opioid Dependence, Pcp Dependence - Physical Exam Results Vital Signs: Vital Signs Temperature 97.7 F 07/13/16 06:00 Pulse Rate 67 07/13/16 06:00 Respiratory Rate 16 07/13/16 06:00 Blood Pressure 102/55 07/13/16 06:00 O2 Sat by Pulse Oximetry (%) - Treatment Hospital Course: Detox Protocol Followed, Detoxed Safely, Responded well, Discharged Condition Good, Rehab Referral Accepted - Medication Discharge Medications: Ambulatory Orders Quetiapine Fumarate [Seroquel] 100 mg PO HS #30 tablet 07/05/16 - Diagnosis (1) Abscess of forearm, right Status: Acute (2) Alcohol dependence Status: Acute Qualifiers: Substance use status: in withdrawal Complication of substance-induced condition: uncomplicated Qualified Code(s): F10.230 - Alcohol dependence with withdrawal, uncomplicated (3) Alcohol dependence with uncomplicated withdrawal Status: Chronic (4) Cocaine dependence, uncomplicated Status: Chronic (5) Drug-induced mood disorder Status: Chronic (6) Insomnia Status: Acute (7) Nicotine dependence Status: Chronic Qualifiers: Nicotine product type: cigarettes Substance use status: uncomplicated Qualified Code(s): F17.210 - Nicotine dependence, cigarettes, uncomplicated (8) Opioid dependence with withdrawal Status: Chronic (9) PCP (phencyclidine) abuse Status: Chronic (10) Rash Status: Acute (11) Substance-induced sleep disorder Status: Acute (12) Syncope Status: Acute (13) Vomiting of Status: Acute (14) Weight decreased Status: Acute (15) Asthma Status: Chronic Qualifiers: Asthma severity: mild intermittent Asthma complication type: uncomplicated Qualified Code(s): J45.20 - Mild intermittent asthma, uncomplicated (16) Psoriasis Status: Chronic (17) Depression (emotion) Status: Suspected Qualifiers: Depression Type: dysthymia Qualified Code(s): F34.1 - Dysthymic disorder - AMA Did Patient Leave Against Medical Advice: No
== END 2016-07-13 06:45 | disposition home or self-care (01) | DRG 773 ==
LOC: YASAS 12:07 → Y6N 15:07
PROVIDERS: ADMIT Internal Medicine; ATTEND Internal Medicine Addiction Medicine
PROC: HZ2ZZZZ Detoxification Services for Substance Abuse Treatment (ICD-10-PCS; principal; 2016-07-08)
DX: F11.23 Opioid dependence with withdrawal (principal); F10.230 Alcohol dependence with withdrawal, uncomplicated; F14.20 Cocaine dependence, uncomplicated; F16.10 Hallucinogen abuse, uncomplicated; F17.210 Nicotine dependence, cigarettes, uncomplicated; F34.1 Dysthymic disorder; F19.282 Other psychoactive substance dependence with psychoactive substance-induced sleep disorder; G47.00 Insomnia, unspecified; R12 Heartburn; J45.20 Mild intermittent asthma, uncomplicated; L40.9 Psoriasis, unspecified; Z86.79 Personal history of other diseases of the circulatory system; Z87.898 Personal history of other specified conditions
CPT/HCPCS: 36415; 80053; 81003; 81015; 86593; 93005; 93010

== ENCOUNTER 2016-07-16 11:07 | Inpatient (IN) | payer OTHER ==
[2016-07-16 12:16] VITALS: BMI 19.1
--- NOTE | 2016-07-16 16:16 | HP ---
[facility] Rehab Assess/Revision - Admission History Admitted to Rehab from: [facility] (COMPLETED DETOX ON 07/08 -07/13/16) Date of Admission to Rehab: 07/16/16 - Vital signs Vital Signs: Vital Signs Period Temp Pulse Resp BP Sys/W[place]ley Pulse Ox Last 24 Hr 96.3 F 82 18 104/67 - Findings Detox History & Physical reviewed: No Concur with findings: Yes Comments/Additional Findings: PT HERE TO F/U WITH REHAB RECOMMENDATION. ALERT O X 3. NAD. VSS. LUNGS: CLEAR TO A/P. PLAN: ADMIT TO REHAB. PSORIATIC LESIONS ON ELBOWS
[2016-07-16] MEDS ORDERED: diphenhydrAMINE HCL 50 MG CAPSULE PO PRN (16:22)
[2016-07-16] MEDS ORDERED: MENTHOL/PHENOL 1 EACH UD MM PRN (16:22)
[2016-07-16] MEDS ORDERED: P-EPHED 60MG/TRIPROLIDI 2.5MG TABLET PO PRN (16:22)
[2016-07-16] MEDS ORDERED: ACETAMINOPHEN 325 MG TABLET (FP) PO PRN (16:22)
[2016-07-16] MEDS ORDERED: LOPERAMIDE HCL 2 MG CAPSULE PO PRN (16:22)
[2016-07-16] MEDS ORDERED: guaiFENesin/D-METHORPHAN HB 10 ML UNIT-DOSE CUPS PO PRN (16:22)
[2016-07-16] MEDS ORDERED: IBUPROFEN 400 MG TABLET (FP) PO PRN (16:22)
[2016-07-16] MEDS ORDERED: MAGNESIUM HYDROX 2400MG/30ML ORAL SUSPENSION 30 ML CUP PO PRN (16:22)
[2016-07-16] MEDS ORDERED: NICOTINE POLACRILEX 2 MG GUM BC PRN (16:22)
[2016-07-16] MEDS ORDERED: MAGNESIUM CITRATE 300 ML BOTTLE PO PRN (16:22)
[2016-07-16] MEDS ORDERED: MAG HYDROX/AL HYDROX/SIMETH 30 ML UNIT-DOSE CUP PO PRN (16:22)
--- NOTE | 2016-07-16 17:00 | HP ---
Psychiatrist Admission - Data Date of interview: 07/16/16 Admission source: [facility] Identifying data: This is the first admission to [address] [place] [address] for this 25 years old female single mother of 1 years old girl( child resides with the patient's grandfather).Patient is homeless,supported by family. Medical History: H/O Syncope alcohol induced. Psychiatric History: Patient reports having depressed mood,anxiety since school age.She didnt addressed her issues to a specialist on a regular basis.Patient sees psychiatrsit on and off while in drug rehab treatment.Reports Seroquel 100 mg po hs helps to cope with mood instability,sleeping problems. Physical/Sexual Abuse/Trauma History: denies Vital Signs: Vital Signs - 24 hr 07/16/16 12:13 Temperature 96.3 F L Pulse Rate 82 Respiratory 18 Rate Blood Pressure 104/67 Allergies/Adverse Reactions: Allergies Allergy/AdvReac Type Severity Reaction Status Date / Time No Known Allergies Allergy Verified 07/16/16 13:57 Date of last physical exam: 07/16/16 Concur with the findings of this exam: Yes - Substance Abuse/Tx History Hx Alcohol Use: Yes (reports drinking since 16 yo) Hx Substance Use: Yes (crack since about 20 yo yo on and off,heroin 23 yo) Substance Use Type: Alcohol, Cocaine, Heroin Hx Substance Use Treatment: Yes (compleeted a few different inpatient rehab) - Admission Criteria Previous failed treatment: Yes Poor recovery environment: Yes Comorbidities: Yes Lacks judgement: Yes Mental Status Exam - Mental Status Exam Alert and Oriented to: Time, Place, Person Cognitive Function: Grossly Intact Patient Appearance: Well Groomed Mood: Anxious, Irritable Affect: Mood Congruent, Labile Patient Behavior: Cooperative Speech Pattern: Clear Voice Loudness: Normal Thought Process: Goal Oriented Thought Disorder: Not Present Hallucinations: Denies Suicidal Ideation: Denies Homicidal Ideation: Denies Insight/Judgement: Fair Sleep: Fair Appetite: Fair Muscle strength/Tone: Normal Gait/Station: Normal Psychiatric Findings - Problem List ([place] 1, 2,3) (1) Alcohol dependence Status: Chronic (2) Substance-induced sleep disorder Status: Chronic (3) Syncope Status: Inactive (4) Weight decreased Status: Acute (5) Substance induced mood disorder Status: Chronic - Initial Treatment Plan Initial Treatment Plan: Continue Seroquel 100 mg po hs.Will monitor progress.
[2016-07-16] MEDS: THIAMINE HCL 100 MG TABLET (FP) PO SCH (21:58)
[2016-07-16] MEDS: CYCLOBENZAPRINE HCL 10 MG TABLET (FP) PO SCH (21:58)
[2016-07-16] MEDS: QUEtiapine FUMARATE 100 MG TABLET (FP) PO SCH (21:58)
[2016-07-16] MEDS: NICOTINE 14 MG/24 HOURS TOPICAL PATCH TD SCH (21:58)
[2016-07-16 23:36] LABS: URINE APPEARANCE SLCLOUDY; URINE BILIRUBIN NEGATIVE (NEGATIVE); URINE BLOOD NEGATIVE (NEGATIVE); URINE COLOR DKYELLOW; URINE GLUCOSE (UA) NEGATIVE (NEGATIVE); URINE KETONE TRACE (NEGATIVE); URINE NITRITE NEGATIVE (NEGATIVE); URINE PROTEIN NEGATIVE (NEGATIVE); URINE UROBILINOGEN NEGATIVE E.U./dl (0.2-1.0)
[2016-07-16 23:40] LABS: URINE LEUK ESTERASE 2+ (NEGATIVE)
[2016-07-16 23:42] LABS: URINE MUCUS MANY; URINE RBC 8 /hpf (0-3); URINE WBC 46 /hpf (3-5); YEAST RARE
[2016-07-17] MEDS: CYCLOBENZAPRINE HCL 10 MG TABLET (FP) PO SCH ×3 (06:36→21:56)
[2016-07-17] MEDS: NICOTINE 14 MG/24 HOURS TOPICAL PATCH TD SCH (10:45)
[2016-07-17] MEDS: PRENATAL VITAMINS W/ FOLIC ACID TABLET (FP) PO SCH (10:46)
[2016-07-17] MEDS: hydrOXYzine PAMOATE 50 MG CAPSULE (FP) PO PRN ×2 (11:51→17:14)
[2016-07-17] MEDS ORDERED: ONDANSETRON *ODT* 4 MG TABLET SL ONE (20:04)
--- NOTE | 2016-07-17 20:05 | PN ---
BHS Progress Note Note: RECEIVED NURSE INFORMED PATIENT FEELS NAUSEA AFTER DINNER ZOFRAIN 4 MG SL X 1
[2016-07-17] MEDS: THIAMINE HCL 100 MG TABLET (FP) PO SCH (21:57)
[2016-07-17] MEDS: QUEtiapine FUMARATE 100 MG TABLET (FP) PO SCH (21:57)
--- NOTE | 2016-07-17 23:39 | EKG ---
Test Reason : Blood Pressure : / mmHG Vent. Rate : 062 BPM Atrial Rate : 062 BPM P-R Int : 170 ms QRS Dur : 094 ms QT Int : 426 ms P-R-T Axes : 063 073 068 degrees QTc Int : 432 ms NORMAL SINUS RHYTHM NORMAL ECG WHEN COMPARED WITH ECG OF 08-JUL-2016 17:31, T WAVE VARIATION Confirmed by RYAN CROWLEY MD ([id number]) on 07/17/2016 11:39:00 PM Referred By: Confirmed By:RYAN CROWLEY MD
[2016-07-18] MEDS: CYCLOBENZAPRINE HCL 10 MG TABLET (FP) PO SCH ×2 (06:14→13:13)
[2016-07-18 07:26] VITALS: BP 128/86; PULSE 98; TEMP 97.5
[2016-07-18] MEDS: hydrOXYzine PAMOATE 50 MG CAPSULE (FP) PO PRN ×2 (08:36→14:33)
[2016-07-18] MEDS: PRENATAL VITAMINS W/ FOLIC ACID TABLET (FP) PO SCH (10:42)
[2016-07-18] MEDS: NICOTINE 14 MG/24 HOURS TOPICAL PATCH TD SCH (10:43)
--- NOTE | 2016-07-18 16:04 | PN ---
Psychiatric Progress Note Vital Signs: Vital Signs Period Temp Pulse Resp BP Sys/Wesley Pulse Ox Last 24 Hr 97.5 F 98 16-18 128/86 Date of Session: 07/18/16 Chief Complaint:: Discharge visit HPI: Patient addressed Alcohol,cocaine and Opioid dependence comorbid with Substance induced sleep and mood dsioredr. ROS: unremarkable Current Side Effect: No Lab tests ordered: No Lab tests reviewed: Yes Provider note:: Chart was revuewed,patient was seen in my office ,medications has been discussed with the patient.She decided to sign out today despite our strong recommendations to continue her treatment in inpatient facility.Patient reports that she is missing her child and doesnt feel like stay in the hospital .Patient continues to find that Sereoquel 100 mg po hs helps to reduce her mood instability and sleeping difficulties.Script for 30 days supply provided. Supportive therapy provided focusing on relapse prevention,coping skills , support utilization has been discussed with the patient along with other ways for recovery maintainance. Total face to face time:: 30
== END 2016-07-18 15:45 | disposition left against medical advice (07) | DRG 770 ==
LOC: YASAS 11:07 → Y3E 15:57
PROVIDERS: ADMIT Psychiatry & Neurology Psychiatry; ATTEND Psychiatry & Neurology Psychiatry
PROC: HZ42ZZZ Group Counseling for Substance Abuse Treatment, Cognitive-Behavioral (ICD-10-PCS; principal; 2016-07-16)
DX: F11.20 Opioid dependence, uncomplicated (principal); F10.20 Alcohol dependence, uncomplicated; F14.20 Cocaine dependence, uncomplicated; F19.24 Other psychoactive substance dependence with psychoactive substance-induced mood disorder; F19.282 Other psychoactive substance dependence with psychoactive substance-induced sleep disorder; Z86.79 Personal history of other diseases of the circulatory system; Z87.898 Personal history of other specified conditions
CPT/HCPCS: 81003; 81015; 93005; 93010

== ENCOUNTER 2017-08-22 16:10 | Inpatient (IN) | payer OTHER ==
[2017-08-22] MEDS ORDERED: DINOPROSTONE 10 MG VAGINAL SUPPOSITORY VG ONE (17:00)
[2017-08-22 17:29] LABS: BASO % 0.1 % (0-2.0); EOS % 3.9 % (0-4.5); HEMATOCRIT 34.8 % (32.4-45.2); HEMOGLOBIN 12.4 GM/dL (10.7-15.3); LYMPH % 17.5 % (8-40); MCH 33.2 pg (25.7-33.7); MCHC 35.5 g/dl (32.0-36.0); MEAN CELL VOLUME 93.5 fl (80-96); MEAN PLT VOLUME 10.9 fl (7.5-11.1); MONO % 6.3 % (3.8-10.2); NEUT % 72.2 % (42.8-82.8); PLATELET COUNT 181 K/MM3 (134-434); RBC 3.73 M/mm3 (3.60-5.2); RDW 13.9 % (11.6-15.6); WHITE BLOOD COUNT 11.4 K/mm3 (4.0-10.0)
[2017-08-22 17:49] LABS: INR 0.92 (0.82-1.09); PROTHROMBIN TIME (PATIENT) 10.4 SEC (9.7-13.0)
[2017-08-22 17:52] VITALS: BMI 26.4
[2017-08-22 17:52] LABS: ACTIVATED PTT 24.3 SECONDS (26.9-34.4)
[2017-08-22 18:00] LABS: ANION GAP 10 (8-16); BLOOD UREA NITROGEN 10 mg/dL (7-18); CHLORIDE 102 mmol/L (98-107); CO2 24 mmol/L (21-32); CREATININE 0.5 mg/dL (0.55-1.02); GLUCOSE,RANDOM 75 mg/dL (74-106); POTASSIUM 4.2 mmol/L (3.5-5.1); SODIUM 136 mmol/L (136-145)
[2017-08-22] MEDS: DEXTROSE 5%-LACTATED RINGERS 1,000 ML IV SCH (18:17)
[2017-08-22 18:29] LABS: COCAINE, UR NEGATIVE ng/ml (CUTOFF=300); METHADONE, UR NEGATIVE ng/ml (CUTOFF=300); OPIATES, URI NEGATIVE ng/ml (CUTOFF=300); PHENCYCLIDINE,URINE NEGATIVE ng/ml (CUTOFF=25); URINE AMPHETAMINES NEGATIVE ng/ml (CUTOFF=500); URINE BARBITURATES NEGATIVE ng/ml (CUTOFF=200); URINE BENZODIAZEPINES NEGATIVE ng/ml (CUTOFF=200)
[2017-08-23] MEDS: DEXTROSE 5%-LACTATED RINGERS 1,000 ML IV SCH ×2 (01:00→04:31)
--- NOTE | 2017-08-23 08:46 | HP ---
Past Medical History - Admission History of Present Illness: 26y/o with SIUP at 41 weeks here for scheduled labor induction. complicated by buprenorphone therapy for opioid addiction, has been following with MFM, as well as late term. Pt with h/o normal in the past. GBS negative. HIV negative. History Source: Patient, Medical Record Limitations to Obtaining History: No Limitations - Past Medical History Cardiovascular: No: HTN, NC Pulmonary: No: Asthma, COPD Reproductive: No: Fibroids, PID ...: 5 ...Para: 1 ...Term: 1 ...: 0 ...Spon : 1 ...Induced : 2 ...Multiple Gestation: 0 ...EDC by Sono: 08/14/17 Infectious Disease: No: HIV, STD's Psych: Yes: Addictions (opioid - on buprenorphone therapy), Anxiety - Past Surgical History Past Surgical History: Yes: None Hx Myomectomy: No Hx Transabdominal Cerclage: No - Smoking History Smoking history: Current every day smoker Have you smoked in the past 12 months: Yes Aproximately how many cigarettes per day: 6 - Alcohol/Substance Use Hx Alcohol Use: Yes Home Medications - Allergies Allergies/Adverse Reactions: Allergies Allergy/AdvReac Type Severity Reaction Status Date / Time No Known Allergies Allergy Verified 08/22/17 18:01 - Home Medications Home Medications: Ambulatory Orders Buprenorphine HCl/Naloxone HCl [Suboxone 8 mg-2 mg Sl Tablets] 2 tablet SL DAILY 08/22/17 Diphenhydramine [Benadryl -] 50 mg PO HS 08/22/17 Sertraline HCl 100 mg PO DAILY 08/22/17 Family Disease History - Family Disease History Family Disease History: Other: Mother (alcohol,) Review of Systems - Review of Systems Constitutional: reports: No Symptoms Eyes: reports: No Symptoms HENT: reports: No Symptoms Neck: reports: No Symptoms Cardiovascular: reports: No Symptoms Respiratory: reports: No Symptoms Gastrointestinal: reports: No Symptoms Genitourinary: reports: No Symptoms Breasts: reports: No Symptoms Reported Musculoskeletal: reports: No Symptoms Integumentary: reports: No Symptoms Neurological: reports: No Symptoms Endocrine: reports: No Symptoms Hematology/Lymphatic: reports: No Symptoms Psychiatric: reports: No Symptoms Physical Exam - Maternity Vital Signs: Vital Signs Temperature 97.9 F 08/23/17 08:00 Pulse Rate 65 08/23/17 08:00 Respiratory Rate 18 08/23/17 08:00 Blood Pressure 119/63 08/23/17 08:00 O2 Sat by Pulse Oximetry (%) Constitutional: Yes: Well Nourished, No Distress, Calm Eyes: Yes: Conjunctiva Clear, EOM Intact HENT: Yes: Atraumatic, Normocephalic Breast(s): Yes: WNL - Abdominal Exam/OB Number of Fetuses: Single Presentation: Vertex Contractions: Yes Regularity: Regular Intensity: Mild/Mod Category: I Accelerations: Uniform Decelerations: None - Vaginal Exam/OB Vaginal Bleediing: No Dilatation (cm): 2.5 Effacement (%): 50 Amniotic Membrane Status: Intact Presentation: Vertex/Position Station: -1 - Physical Exam Psychiatric: Yes: Alert, Oriented - Labs Lab Results: CBC, BMP 08/22/17 17:12 08/22/17 17:12 Hemorrhage Risk Assessment - Risk Factors Medium Risk Factors: Yes: None High Risk Factors: Yes: None Risk Score: 1 Risk Level: Medium Risk Problem List - Problems (1) Post-dates Code(s): O48.0 - POST-TERM (2) Opioid dependence on agonist therapy Code(s): F11.20 - OPIOID DEPENDENCE, UNCOMPLICATED Assessment/Plan 26 y/o P1 female, 41 weeks, admitted for labor induction - recieved cervidil overnight, removed, to start pitocin today - FHTS cat 1 - for pain control will need epidural - cannot use stadol as this is partial agonist/antagonist and can precipitate withdrawal from her buprenorphine therapy , pt and nursing aware - pt to continue home medications - will inform neonatology close to delivery - continue current care
[2017-08-23] MEDS ORDERED: OXYTOCIN 20 UNITS in 0.9% NS 20 UNIT/1,000 ML INFUS.BAG IV ONE (08:49)
[2017-08-23] MEDS ORDERED: OXYTOCIN 30 UNITS in 0.9% NS 30 UNIT/500 ML INFUS.BAG IVPB SCH (09:00)
[2017-08-23] MEDS: ELECTROLYTE-148 SOLN 1,000 ML IV SCH ×2 (09:45→21:00)
[2017-08-23] MEDS: BUPRENORPHINE HCL 8 MG TAB.SUBL SL SCH ×2 (09:53→22:30)
[2017-08-23] MEDS: SERTRALINE HCL 50 MG TABLET (FP) PO SCH (09:53)
--- NOTE | 2017-08-23 13:32 | PN ---
Ante-Partal Exam - Subjective Subjective: Pt feeling cramps, no strong contractions. Vital Signs: Vital Signs Temperature 98.1 F 08/23/17 13:00 Pulse Rate 66 08/23/17 13:00 Respiratory Rate 18 08/23/17 13:00 Blood Pressure 114/67 08/23/17 13:00 O2 Sat by Pulse Oximetry (%) Bleeding: No Headache: No Visual changes: No Right upper quadrant pain: No - Contractions Contractions: Yes Regularity: Regular Intensity: Moderate - Exam during Labor Heart Rate: 120 Variability: Absent Category: I Monitor Accelerations: Present Monitor Decelerations: None Exam: Vaginal Dilatation (cm): 2.5 Effacement (%): 50 Amniotic Membrane Status: Ruptured (AROM for clear fluid) Amniotic Fluid: Clear Presentation: Vertex Station: -1 - Assessment/Plan Assessment/Plan: 26 y/o P1 with SIUP at 41 weeks, IOL for late term - AFVSS - IOL for late term, s/p epidural, on pitocin and now s/p AROM - GBS negative - continue induction
[2017-08-23] MEDS ORDERED: BUPIVACAINE HCL/PF 8.4 ML in SODIUM CHLORIDE 41.6 ML NR SCH (16:00)
[2017-08-23] MEDS ORDERED: NALOXONE HCL 0.4 MG/ML VIAL IVPUSH PRN (16:25)
[2017-08-23] MEDS ORDERED: FENTANYL/BUPIVACAINE/NS/PF - PCEA - 50 ML DISP.SYRIN EP SCH (16:30)
--- NOTE | 2017-08-23 16:57 | PN ---
Ante-Partal Exam - Subjective Subjective: Pt s/p epidural, states pain is more tolerable. Vital Signs: Vital Signs Temperature 98.2 F 08/23/17 15:00 Pulse Rate 82 08/23/17 16:45 Respiratory Rate 18 08/23/17 16:45 Blood Pressure 108/72 08/23/17 16:45 O2 Sat by Pulse Oximetry (%) 99 08/23/17 16:45 Bleeding: No Headache: No Visual changes: No Right upper quadrant pain: No - Contractions Contractions: Yes Regularity: Regular Intensity: Mod/Strong - Exam during Labor Heart Rate: 120 Variability: Moderate Category: I Monitor Accelerations: Absent Monitor Decelerations: None Exam: Vaginal Dilatation (cm): 4.5 Effacement (%): 70 Amniotic Membrane Status: Ruptured Presentation: Vertex Station: -1 - Assessment/Plan Assessment/Plan: IOL for late term continue pitocin s/p arom now with epidural continue buprenorphine 8mg BID (patients home dose) anticipate
[2017-08-23] MEDS ORDERED: LIDOCAINE HCL 1% PRESERVATIVE FREE - 30ML VIAL ONE (20:26)
[2017-08-24] MEDS ORDERED: OXYTOCIN 20 UNITS in 0.9% NS 20 UNIT/1,000 ML INFUS.BAG IV SCH (01:00)
--- NOTE | 2017-08-24 01:12 | PN ---
Progress Note, Labor Vaginal Exam #2 Labor Exam Date: 08/23/17 Labor Exam Time: 12:50 Heart Rate (range): 120bpm Dilatation: fully Effacement (%): 100% Amniotic Membrane Status: Ruptured Presentation: Vertex/Position Station: +2 Remarks: jose l spontaneous vaginal delivery of male uncomplicated over 1 degree perineal tear . the placenta was expelled spnotaneously and completely. ebl was approximatly 200cc. The cried spontaneously . he was sent to nursery . the mother has a h/o drug abuse.
[2017-08-24] MEDS ORDERED: WITCH HAZEL 50% (TUCKS) 40 PAD/JAR PAD TP PRN (01:13)
[2017-08-24] MEDS ORDERED: METHYLERGONOVINE MALEATE 0.2 MG/1 ML AMP IM PRN (01:13)
[2017-08-24] MEDS ORDERED: BENZOCAINE 28 GM HEMORRHOIDAL OINTMENT TP PRN (01:13)
[2017-08-24] MEDS ORDERED: BISACODYL 10 MG SUPP.RECT RC PRN (01:13)
[2017-08-24] MEDS ORDERED: OXYTOCIN 20 UNITS in 0.9% NS 20 UNIT/1,000 ML INFUS.BAG IV ONE (01:52)
[2017-08-24] MEDS: IBUPROFEN 600 MG TABLET (FP) PO PRN ×2 (02:29→22:11)
[2017-08-24] MEDS: ACETAMINOPHEN 325 MG TABLET (FP) PO PRN ×2 (02:30→22:11)
--- NOTE | 2017-08-24 04:57 | PN ---
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 eBL was approximatly 200 to 250 cc .The placenta was expelled spontaneously and completely both maternal and condition remained stable.
--- NOTE | 2017-08-24 08:27 | PN ---
Post Progress Note Type of Delivery: Vital Signs: Vital Signs Temperature 98.5 F 08/24/17 06:00 Pulse Rate 66 08/24/17 06:00 Respiratory Rate 20 08/24/17 06:00 Blood Pressure 122/59 08/24/17 06:00 O2 Sat by Pulse Oximetry (%) 96 08/24/17 00:15 Breast Exam: Yes: Soft Uterus: Yes: Fundus Firm Abdomen/GI: Yes: Abdomen soft, Passing flatus, Tolerating PO Lochia: Yes: Rubra Lochia, amount: Moderate Extremities: Yes: Calves non-tender Perineum: Yes: Laceration Activity: Ambulating - Labs Labs: CBC WBC 11.4 K/mm3 (4.0-10.0) H 08/22/17 17:12 RBC 3.73 M/mm3 (3.60-5.2) 08/22/17 17:12 Hgb 12.4 GM/dL (10.7-15.3) 08/22/17 17:12 Hct 34.8 % (32.4-45.2) 08/22/17 17:12 MCV 93.5 fl (80-96) 08/22/17 17:12 MCH 33.2 pg (25.7-33.7) 08/22/17 17:12 MCHC 35.5 g/dl (32.0-36.0) 08/22/17 17:12 RDW 13.9 % (11.6-15.6) 08/22/17 17:12 Plt Count 181 K/MM3 (134-434) 08/22/17 17:12 MPV 10.9 fl (7.5-11.1) D 08/22/17 17:12 Neutrophils % 72.2 % (42.8-82.8) 08/22/17 17:12 Lymphocytes % 17.5 % (8-40) 08/22/17 17:12 Monocytes % 6.3 % (3.8-10.2) 08/22/17 17:12 Eosinophils % 3.9 % (0-4.5) D 08/22/17 17:12 Basophils % 0.1 % (0-2.0) 08/22/17 17:12 Other Findings, Remarks: condition stable on the first post day continue current care
[2017-08-24] MEDS: FERROUS SO4 325 MG TABLET (FP) PO SCH ×2 (08:36→12:22)
[2017-08-24] MEDS: SERTRALINE HCL 50 MG TABLET (FP) PO SCH (09:31)
[2017-08-24] MEDS: BUPRENORPHINE HCL 8 MG TAB.SUBL SL SCH ×2 (09:31→22:07)
[2017-08-24] MEDS ORDERED: PRENATAL VITAMINS W/ FOLIC ACID TABLET (FP) PO SCH (10:00)
[2017-08-24] MEDS: diphenhydrAMINE HCL 25 MG CAPSULE (FP) PO PRN (15:21)
--- NOTE | 2017-08-24 15:26 | HOSP ---
Subjective - Review of Symptoms Subjective: The patient is complaining of rash and itching that started around 10 AM today and got progressively worse. She denies havig rash in the past, SOB, chest pin, palpitations, difficulty breathing and lightheadedness. General: No: Chills HEENT: No: Head Aches, Sore Throat Pulmonary: No: Dyspnea, Cough, Pleuritic Chest Pain Cardiovascular: No: Chest Pain, Palpitations Gastrointestinal: No: Nausea, Vomiting, Abdominal Pain Musculoskeletal: Yes: No Symptoms Neurological: No: Confusion Other Systems: SKIN: the patient is complaining of skin rash and itching for 5 hours. Physical Examination Vital Signs: Vital Signs Temperature 98.2 F 08/24/17 10:00 Pulse Rate 85 08/24/17 10:00 Respiratory Rate 20 08/24/17 10:00 Blood Pressure 123/70 08/24/17 10:00 O2 Sat by Pulse Oximetry (%) 96 08/24/17 00:15 Constitutional: Yes: Well Nourished, No Distress, Calm Eyes: Yes: WNL, EOM Intact HENT: Yes: WNL, Atraumatic, Normocephalic Neck: Yes: WNL, Supple, Trachea Midline Cardiovascular: Yes: WNL, Regular Rate and Rhythm, S1, S2. No: Murmur Respiratory: Yes: WNL, Regular, CTA Bilaterally. No: Cough Gastrointestinal: Yes: WNL, Normal Bowel Sounds, Distention (s/p delivery) Musculoskeletal: Yes: WNL. No: Back Pain, Muscle Pain Extremities: Yes: Other (Upper extremities, both hands: maculopaplar rash, present both on palms and dorsum of her hands, no swelling.) Labs: CBC, BMP 08/22/17 17:12 08/22/17 17:12 Hospitalist Encounter Assessment: The patient is a 26 year old female with a PMH of opioid dependance, s/p natural vaginal delivery who started complaining of rash in her hands for 5 hours. Outcome: The patient has allergic reaction of unknown etiology at this moment. It may be caused by medications that were given recently to the patient. Recommendations/Interventions: Please stop Vitimins and Iron supplementation. We recommend to obtain labs: CBC, CMP stat. We also recommend to continue Benadryl 50 mg PO and then continue home dose of Benadryl. If that will not resolve her symptoms, we recommend to be evaluated by Dermatology and start topical steroid cream. Thank you. Visit type - Emergency Visit Emergency Visit: Yes ED Registration Date: 08/22/17 Care time: The patient presented to the Emergency Department on the above date and was hospitalized for further evaluation of their emergent condition. - New Patient This patient is new to me today: Yes Date on this admission: 08/24/17 - Critical Care Critical Care patient: No
[2017-08-24 16:41] LABS: HEMATOCRIT 31.3 % (32.4-45.2); HEMOGLOBIN 11.2 GM/dL (10.7-15.3); MCH 33.6 pg (25.7-33.7); MCHC 35.7 g/dl (32.0-36.0); MEAN CELL VOLUME 94.1 fl (80-96); MEAN PLT VOLUME 10.9 fl (7.5-11.1); PLATELET COUNT 146 K/MM3 (134-434); RBC 3.32 M/mm3 (3.60-5.2); WHITE BLOOD COUNT 12.9 K/mm3 (4.0-10.0)
[2017-08-24 17:09] LABS: ALBUMIN 2.3 g/dl (3.4-5.0); ANION GAP 8 (8-16); BILIRUBIN,TOTAL 0.2 mg/dL (0.2-1.0); BLOOD UREA NITROGEN 10 mg/dL (7-18); CALCIUM 8.3 mg/dL (8.5-10.1); CHLORIDE 106 mmol/L (98-107); CO2 26 mmol/L (21-32); CREATININE 0.6 mg/dL (0.55-1.02); GLUCOSE,RANDOM 93 mg/dL (74-106); POTASSIUM 3.7 mmol/L (3.5-5.1); SGOT/AST 20 U/L (15-37); SGPT/ALT 14 U/L (12-78); SODIUM 140 mmol/L (136-145); TOT PROT 4.9 g/dl (6.4-8.2)
[2017-08-24 17:10] LABS: ALK PHOS 147 U/L (45-117)
[2017-08-24] MEDS ORDERED: diphenhydrAMINE HCL 25 MG CAPSULE (FP) PO SCH (22:00)
[2017-08-25] MEDS: diphenhydrAMINE HCL 25 MG CAPSULE (FP) PO PRN (05:17)
--- NOTE | 2017-08-25 07:43 | PN ---
Post Progress Note Post Day: 1 Type of Delivery: Vital Signs: Vital Signs Temperature 98.4 F 08/24/17 21:00 Pulse Rate 74 08/24/17 21:00 Respiratory Rate 20 08/24/17 21:00 Blood Pressure 127/76 08/24/17 21:00 O2 Sat by Pulse Oximetry (%) 96 08/24/17 00:15 Breast Exam: Yes: Soft Uterus: Yes: Fundus Firm Abdomen/GI: Yes: Abdomen soft, Passing flatus Lochia: Yes: Serosa Lochia, amount: Moderate Extremities: Yes: Calves non-tender Perineum: Yes: Laceration Activity: Ambulating - Labs Labs: CBC WBC 12.9 K/mm3 (4.0-10.0) H 08/24/17 16:30 RBC 3.32 M/mm3 (3.60-5.2) L 08/24/17 16:30 Hgb 11.2 GM/dL (10.7-15.3) 08/24/17 16:30 Hct 31.3 % (32.4-45.2) L 08/24/17 16:30 MCV 94.1 fl (80-96) 08/24/17 16:30 MCH 33.6 pg (25.7-33.7) 08/24/17 16:30 MCHC 35.7 g/dl (32.0-36.0) 08/24/17 16:30 RDW 14.0 % (11.6-15.6) 08/24/17 16:30 Plt Count 146 K/MM3 (134-434) 08/24/17 16:30 MPV 10.9 fl (7.5-11.1) 08/24/17 16:30 Neutrophils % 72.2 % (42.8-82.8) 08/22/17 17:12 Lymphocytes % 17.5 % (8-40) 08/22/17 17:12 Monocytes % 6.3 % (3.8-10.2) 08/22/17 17:12 Eosinophils % 3.9 % (0-4.5) D 08/22/17 17:12 Basophils % 0.1 % (0-2.0) 08/22/17 17:12 Other Findings, Remarks: condition is stable continue current care
[2017-08-25 09:01] LABS: BASO % 0.5 % (0-2.0); EOS % 5.8 % (0-4.5); HEMATOCRIT 34.3 % (32.4-45.2); HEMOGLOBIN 12.1 GM/dL (10.7-15.3); LYMPH % 29.1 % (8-40); MCH 33.1 pg (25.7-33.7); MCHC 35.2 g/dl (32.0-36.0); MEAN CELL VOLUME 94.1 fl (80-96); MONO % 7.1 % (3.8-10.2); NEUT % 57.5 % (42.8-82.8); PLATELET COUNT 157 K/MM3 (134-434); RBC 3.65 M/mm3 (3.60-5.2); RDW 14.1 % (11.6-15.6); WHITE BLOOD COUNT 10.8 K/mm3 (4.0-10.0)
[2017-08-25] MEDS: SERTRALINE HCL 50 MG TABLET (FP) PO SCH (09:53)
[2017-08-25] MEDS: BUPRENORPHINE HCL 8 MG TAB.SUBL SL SCH ×2 (09:53→22:29)
[2017-08-25] MEDS: IBUPROFEN 600 MG TABLET (FP) PO PRN ×2 (09:56→22:30)
[2017-08-25] MEDS: ACETAMINOPHEN 325 MG TABLET (FP) PO PRN ×2 (09:57→22:30)
--- NOTE | 2017-08-25 10:54 | CONSULT ---
Consultation: MEDICINE CONSULT REQUEST HISTORY OF PRESENT ILLNESS: 26yo F with PMHx of opioid dependence who is being seen for a rash on her hand which developed during her . Pt vaginally delivered on without complications, 300cc of blood loss, and with epidural anesthesia. Pt reports her rash on her hand started 12pm on 08/24 which progressively worsened in itching intensity after taking a iron supplementation pill. Pt reports being seen by the medicine team for her rash yesterday who told her it could possibly be an allergic rxn and gave her benadryl for it. Pt reports her rash currently is stable with some but not all alleviation of pruritus with benadryl. Denies f /c, d/c, shortness of breath, CP/discomfort, palpitations, dysphagia/ odynophagia. Pt reports not and opting for bottlefeeding of the . REVIEW OF SYSTEMS: CONSTITUTIONAL: Absent: fever, chills, diaphoresis, generalized weakness, malaise HEENT: Absent: throat pain, throat swelling, difficulty swallowing, mouth swelling CARDIOVASCULAR: Absent: chest pain, palpitations, irregular heart rate, lightheadedness, peripheral edema RESPIRATORY: Absent: cough, shortness of breath, wheezing GASTROINTESTINAL: Absent: abdominal pain, abdominal distension, diarrhea, constipation SKIN: PRESENT: rash, itching, ABSENT: pallor HEMATOLOGIC/IMMUNOLOGIC: Absent: easy bleeding, easy bruising, PHYSICAL EXAMINATION Vital Signs - 24 hr 08/24/17 08/24/17 08/24/17 14:00 18:00 21:00 Temperature 98.4 F 98.6 F 98.4 F Pulse Rate 77 97 H 74 Respiratory 20 20 20 Rate Blood Pressure 105/58 123/70 127/76 08/25/17 09:00 Temperature 98.6 F Pulse Rate 78 Respiratory 20 Rate Blood Pressure 122/71 GENERAL: NAD, awake, alert, and fully oriented HEENT: EOMI, TOM, sclera anicteric, moist mucosa LUNGS: CTA bilaterally. No wheezes, and no crackles. No accessory muscle use. HEART: RRR, normal S1 and S2 without murmur, rub or gallop. ABDOMEN: Soft, NT/ND, gravid uterus appreciated, no guarding, no scars EXTREMITIES: 2+ DP pulses, warm, cap refill normal, hands with b/l urticaria with lingering erythema, no vesicles or drainage PSYCHIATRIC: Cooperative. Good eye contact. Appropriate mood and affect. SKIN: See above Laboratory Results - last 24 hr 08/24/17 08/24/17 08/25/17 16:30 16:30 08:50 WBC 12.9 H 10.8 H RBC 3.32 L 3.65 Hgb 11.2 12.1 Hct 31.3 L 34.3 MCV 94.1 94.1 MCH 33.6 33.1 MCHC 35.7 35.2 RDW 14.0 14.1 Plt Count 146 157 MPV 10.9 10.0 Neutrophils % 57.5 D Lymphocytes % 29.1 D Monocytes % 7.1 Eosinophils % 5.8 H Basophils % 0.5 D Sodium 140 Potassium 3.7 Chloride 106 Carbon Dioxide 26 Anion Gap 8 BUN 10 Creatinine 0.6 Creat Clearance w eGFR > 60 Random Glucose 93 Calcium 8.3 L Total Bilirubin 0.2 D AST 20 ALT 14 Alkaline Phosphatase 147 H Total Protein 4.9 L Albumin 2.3 L Active Medications Generic Name Dose Route Start Last Admin Trade Name Kyleq PRN Reason Stop Dose Admin Acetaminophen 650 mg 08/24/17 01:13 08/25/17 09:57 Tylenol - PO 650 mg Q3H PRN Administration PAIN LEVEL 1-5 Benzocaine 1 applic 08/24/17 01:13 Americaine Ointment - TP PRN PRN PAIN Bisacodyl 10 mg 08/24/17 01:13 Dulcolax Suppository - RC PRN PRN CONSTIPATION Buprenorphine HCl 8 mg 08/23/17 10:00 08/25/17 09:53 Subutex - SL 8 mg BID VARUN Administration Diphenhydramine HCl 50 mg 08/24/17 22:00 08/24/17 22:07 Benadryl - PO 50 mg HS VARUN Administration Diphenhydramine HCl 50 mg 08/24/17 15:17 08/25/17 05:17 Benadryl - PO 50 mg Q6H PRN Administration FOR ITCHING Diphtheria/Tetanus/Acell Pertussis 0.5 ml 08/27/19 10:00 Boostrix - IM 08/27/19 10:01 .ONCE ONE Ibuprofen 600 mg 08/24/17 01:13 08/25/17 09:56 Motrin - PO 600 mg Q4H PRN Administration PAIN Methylergonovine Maleate 0.2 mg 08/24/17 01:13 Methergine Injection - IM Q4H PRN EXCESSIVE BLEEDING (L&D) Naloxone HCl 0.4 mg 08/23/17 16:25 Narcan - IVPUSH PRN PRN Sedation Sertraline HCl 100 mg 08/23/17 10:00 08/25/17 09:53 Zoloft - PO 100 mg DAILY VARUN Administration Witch Anai/Glycerin 1 pad 08/24/17 01:13 Tucks Pads - TP PRN PRN PAIN ASSESSMENT/PLAN: 1) Rash --Most likely allergic reaction to dye in iron supplementation pills; higher support with increased eosinophilia in bloodwork done last night. --Can continue Benadryl 25mg PO q6h PRN itching --50 more likely to make her drowsy throughout the day without added efficacy --Pt not ; can due Prednisone 40mg PO once now with tapering dose pack to be carried out as outpatient --40 (today), 30mg (tomorrow), 20 (08/27/17), 10 (08/28/17), stop Dispo: continue mgmt per primary team Thank you for this consultative opportunity. Please reconsult if anything becomes of concern again Case discussed with Dr. Candie Garay, DO - IM PGY-1 <Robinson Garay - Last Filed: 08/25/17 11:49> Consultation: Will add Prednisone tapered dose, 40mg today) ,30mg (tomorrow) ,20mg (08/27/2017 ) ,10mg (08/28/2017) Patient seen and examined. Patient is not . benadryl prn. <Lucian Schreiber - Last Filed: 08/26/17 18:21> Visit type - Emergency Visit Emergency Visit: No - New Patient This patient is new to me today: Yes Date on this admission: 08/25/17 - Critical Care Critical Care patient: No <Robinson Garay - Last Filed: 08/25/17 11:49>
[2017-08-25] MEDS ORDERED: diphenhydrAMINE HCL 25 MG CAPSULE (FP) PO PRN (11:40)
[2017-08-25] MEDS ORDERED: predniSONE 20 MG TABLET (UD) PO ONE (11:45)
[2017-08-26 09:18] VITALS: BP 128/67; PULSE 66; TEMP 97.9
[2017-08-26] MEDS ORDERED: predniSONE 10 MG TABLET (UD) PO ONE (10:00)
[2017-08-26] MEDS: SERTRALINE HCL 50 MG TABLET (FP) PO SCH (10:46)
[2017-08-26] MEDS: BUPRENORPHINE HCL 8 MG TAB.SUBL SL SCH (10:47)
--- NOTE | 2017-08-26 14:56 | CON.PSY ---
Psychiatry Consult Chief Complaint: 26 year old female with a history of opiod depedence , on Subutex maintanance and Zoloft for depression. Patient seen for psych eval. No Psych hospitalizations, no history of suicidal or homicidal; brhaviour. - Previous Psychiatric Treatment Outpatient: Less than 6 mos ago - Previous Substance Abuse Treatment Outpatient: Less than 6 mos ago - Reason for Previous Treatment Reason for Previous Treatment: Major Depression, Heroin or Other Narcotics - Current Medications Current Medications: Active Medications Acetaminophen (Tylenol -) 650 mg PO Q3H PRN PRN Reason: PAIN LEVEL 1-5 Last Admin: 08/25/17 22:30 Dose: 650 mg Benzocaine (Americaine Ointment -) 1 applic TP PRN PRN PRN Reason: PAIN Bisacodyl (Dulcolax Suppository -) 10 mg RC PRN PRN PRN Reason: CONSTIPATION Buprenorphine HCl (Subutex -) 8 mg SL BID [facility] Last Admin: 08/26/17 10:47 Dose: 8 mg Diphenhydramine HCl (Benadryl -) 25 mg PO Q6H PRN PRN Reason: FOR ITCHING Last Admin: 08/25/17 22:30 Dose: 25 mg Diphtheria/Tetanus/Acell Pertussis (Boostrix -) 0.5 ml IM .ONCE ONE Stop: 08/27/19 10:01 Ibuprofen (Motrin -) 600 mg PO Q4H PRN PRN Reason: PAIN Last Admin: 08/25/17 22:30 Dose: 600 mg Methylergonovine Maleate (Methergine Injection -) 0.2 mg IM Q4H PRN PRN Reason: EXCESSIVE BLEEDING (L&D) Naloxone HCl (Narcan -) 0.4 mg IVPUSH PRN PRN PRN Reason: Sedation Prednisone (Deltasone -) 20 mg PO ONCE ONE Stop: 08/27/17 10:01 Prednisone (Deltasone -) 10 mg PO ONCE ONE Stop: 08/28/17 10:01 Sertraline HCl (Zoloft -) 100 mg PO DAILY [facility] Last Admin: 08/26/17 10:46 Dose: 100 mg Witch Anai/Glycerin (Tucks Pads -) 1 pad TP PRN PRN PRN Reason: PAIN - Allergies Allergies: Allergies Allergy/AdvReac Type Severity Reaction Status Date / Time ferrous sulfate [From Feosol] AdvReac Mild rash and Verified 08/24/17 15:53 itching iron [From Feosol] AdvReac Mild rash and Verified 08/24/17 15:53 itching AdvReac Mild Itching Uncoded 08/24/17 15:55 and rash - Current Living Status Usual Living Arrangement: With Significant Other - Current Mental Status Evaluation Appearance: Well Groomed Attitude: Cooperative - Affect Affect: Full Range Appropriateness: Appropriate to Content - Mood Mood: Euthymic - Speech/Language Expressive: Coherent - Psychomotor Activity Psychomotor Activity: Normal - Thought Process Thought Process: Intact - Thought Content Hallucinations: Absent Delusions: Absent - Self Perception Self Perception: No Impairment - Cognition Attention: Alert Orientation: Time Memory, Immediate Recall: Intact Memory, Short Term: 3/3 Memory, Remote with Promptin/3 - Concentration Serial Sevens Intact: Yes Simple Calculations Intact: Yes - Abstraction Proverb Interpretation: Intact Judgement: Intact - Insight Insight: Intact - Impulse Control Impulse Control: Good Control - Suicidal Ideation Suicidal Ideation: No - Homicidal Ideation Homicidal Ideation: No Assessment/Plan 1) Continue with Subutex. 2) Continue with Zoloft. 3) discharge when medically stable. 4) follow up at [facility] in [facility].
[2017-08-27] MEDS ORDERED: predniSONE 20 MG TABLET (UD) PO ONE (10:00)
[2017-08-28] MEDS ORDERED: predniSONE 10 MG TABLET (UD) PO ONE (10:00)
--- NOTE | 2017-09-03 18:20 | PATH ---
Surgical Pathology Report Patient Name: ARNULFO COBURN Med. Rec. 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 TRIVASCULAR CORD. MEMBRANES, NO DIAGNOSTIC ABNORMALITIES. Electronically Signed Ashley Blake M.D. Gross Description The specimen is received fresh labeled placenta and is a 574 gram, 17.5 x 16.5 x 2.4 cm. placenta with attached membranes and umbilical cord. The attached membranes are guerrero, translucent with focal opacities and insert marginally. The umbilical cord measures 21 cm. in length and averages 1.2 cm. in diameter. The cord inserts eccentrically, 5 cm. to the nearest margin. No true knots or strictures are identified. Cut surface of the umbilical cord reveals 3 vessels. The surface is lew-blue with minimal fibrin deposition and appropriate caliber vessels. The maternal surface is red-brown with focal defects. Sectioning reveals red-brown, spongy parenchyma. No lesions are identified. [employer] Appliance Adjuster sections are submitted in three cassettes as follows: 1- membrane rolls and umbilical cord; 2-3- full thickness sections of placenta. 08/30/[address] [facility]08/30/2017
[2019-08-27] MEDS ORDERED: DIPHTH,PERTUSS(ACELL),TET 0.5 ML DISP.SYRIN IM ONE (10:00)
== END 2017-08-26 17:00 | disposition home or self-care (01) | DRG 560 ==
LOC: JLDR 16:10 → J3W 08-24 02:12
PROVIDERS: ADMIT Obstetrics & Gynecology; ATTEND Obstetrics & Gynecology
PROC: 3E0P7VZ Introduction of Hormone into Female Reproductive, Via Natural or Artificial Opening (ICD-10-PCS; 2017-08-23)
PROC: 10E0XZZ Delivery of Products of Conception, External Approach (ICD-10-PCS; principal; 2017-08-24)
PROC: 0HQ9XZZ Repair Perineum Skin, External Approach (ICD-10-PCS; 2017-08-24)
PROC: 0W8NXZZ Division of Female Perineum, External Approach (ICD-10-PCS; 2017-08-24)
DX: O70.0 First degree perineal laceration during delivery (principal); O48.0 Post-term pregnancy; Z3A.41 41 weeks gestation of pregnancy; O26.893 Other specified pregnancy related conditions, third trimester; R21 Rash and other nonspecific skin eruption; Z37.0 Single live birth
CPT/HCPCS: 36415; 59409; 80048; 80053; 80307; 85025; 85027; 85610; 85730; 86593; 86850; 86900; 86901; 88307-TC

== ENCOUNTER 2017-09-25 12:24 | Inpatient (IN) | payer OTHER ==
[2017-09-25 12:48] VITALS: BMI 22.8
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
[2017-09-25] MEDS ORDERED: guaiFENesin/D-METHORPHAN HB 10 ML UNIT-DOSE CUPS PO PRN (13:17)
[2017-09-25] MEDS ORDERED: ACETAMINOPHEN 325 MG TABLET (FP) PO PRN (13:17)
[2017-09-25] MEDS ORDERED: IBUPROFEN 400 MG TABLET (FP) PO PRN (13:17)
[2017-09-25] MEDS ORDERED: MAGNESIUM CITRATE 300 ML BOTTLE PO PRN (13:17)
[2017-09-25] MEDS ORDERED: LOPERAMIDE HCL 2 MG CAPSULE PO PRN (13:17)
[2017-09-25] MEDS ORDERED: MENTHOL/PHENOL 1 EACH UD MM PRN (13:17)
[2017-09-25] MEDS ORDERED: NICOTINE POLACRILEX 4 MG GUM BUC PRN (13:17)
[2017-09-25] MEDS ORDERED: MAG HYDROX/AL HYDROX/SIMETH 30 ML UNIT-DOSE CUP PO PRN (13:17)
[2017-09-25] MEDS ORDERED: chlordiazePOXIDE HCL 25 MG CAPSULE PO PRN (13:17)
[2017-09-25] MEDS ORDERED: MAGNESIUM HYDROX 2400MG/30ML ORAL SUSPENSION 30 ML CUP PO PRN (13:17)
[2017-09-25] MEDS ORDERED: P-EPHED 60MG/TRIPROLIDI 2.5MG TABLET PO PRN (13:17)
[2017-09-25] MEDS ORDERED: ALBUTEROL SO4 18 GM HFA INHALER IH PRN (13:34)
[2017-09-25] MEDS ORDERED: METHADONE HCL 10 MG TABLET (FOR DETOX USE ONLY) PO ONE ×2 (15:15→23:00)
[2017-09-25] MEDS: TRIAMCINOLONE ACET 0.1% 60 ML LOTION TP SCH ×3 (15:42→22:13)
[2017-09-25] MEDS: DOCUSATE SODIUM 100 MG CAPSULE (FP) PO SCH ×2 (15:42→22:14)
[2017-09-25] MEDS: NICOTINE 21 MG/24 HOURS TOPICAL PATCH TD SCH (16:01)
[2017-09-25] MEDS: chlordiazePOXIDE HCL 25 MG CAPSULE PO SCH ×2 (18:10→22:14)
[2017-09-25 18:23] LABS: URINE APPEARANCE TURBID; URINE BILIRUBIN NEGATIVE (<2.0 mg/dL); URINE COLOR AMBER; URINE GLUCOSE (UA) NEGATIVE (NEGATIVE); URINE KETONE 1+ (NEGATIVE); URINE LEUK ESTERASE TRACE (NEGATIVE); URINE NITRITE NEGATIVE (NEGATIVE)
[2017-09-25 18:29] LABS: URINE PROTEIN 1+ (NEGATIVE)
[2017-09-25 18:30] LABS: URINE MUCUS MANY
[2017-09-25] MEDS ORDERED: MELATONIN 5 MG TABLETS PO PRN (22:00)
[2017-09-25] MEDS: THIAMINE HCL 100 MG TABLET (FP) PO SCH (22:13)
[2017-09-25] MEDS: SENNOSIDES 8.6MG TABLET (FP) PO SCH (22:14)
[2017-09-26] MEDS: chlordiazePOXIDE HCL 25 MG CAPSULE PO SCH ×4 (06:14→22:11)
[2017-09-26] MEDS: DOCUSATE SODIUM 100 MG CAPSULE (FP) PO SCH ×3 (06:14→22:11)
[2017-09-26] MEDS ORDERED: MULTIVITAMINS (DAILY MVI) TABLET (FP) PO SCH (10:00)
[2017-09-26] MEDS ORDERED: METHADONE HCL 10 MG TABLET (FOR DETOX USE ONLY) PO SCH (10:00)
[2017-09-26 10:23] LABS: HEMATOCRIT 38.2 % (32.4-45.2); HEMOGLOBIN 13.2 GM/dL (10.7-15.3); MCH 32.4 pg (25.7-33.7); MCHC 34.4 g/dl (32.0-36.0); MEAN CELL VOLUME 94.2 fl (80-96); MEAN PLT VOLUME 9.9 fl (7.5-11.1); PLATELET COUNT 214 K/MM3 (134-434); RBC 4.06 M/mm3 (3.60-5.2); WHITE BLOOD COUNT 9.2 K/mm3 (4.0-10.0)
--- NOTE | 2017-09-26 10:27 | PN ---
[facility] CIWA - CIWA Score Nausea/Vomitin-Mild Nausea/No Vomiting Muscle Tremors: 4-Moderate,w/Arms Extend Anxiety: 3 Agitation: 3 Paroxysmal Sweats: 1-Minimal Palms Moist Orientation: 0-Oriented Tacttile Disturbances: 1-Very Mild Itch/Numbness Auditory Disturbances: 0-None Visual Disturbances: 0-None Headache: 0-None Present CIWA-Ar Total Score: 13 BHS COWS - Scale Resting Pulse: 0= [place] 80 or Below Sweatin= Chills/Flushing Restless Observation: 1= Difficult to Sit Still Pupil Size: 0= Normal to Room Light Bone or Joint Aches: 2= Severe Diffuse Aches Runny Nose/ Eye Tearin= Runny Nose/Eyes GI Upset > 30mins: 2= Nausea/Diarrhea Tremor Observation of Outstretched Hands: 2= Slight Tremor Visible Yawning Observation: 1= 1-2x During Session Anxiety or Irritability: 2=Irritable/Anxious Goose Flesh Skin: 0=Smooth Skin COWS Score: 13 [facility] Progress Note (SOAP) Subjective: joint pain body ache tremor sweat trouble sleeping at night patient received suboxone 8 mg on 09/20/17 bid patient dose not want suboxine "I will discard them when I get home" Objective: 09/26/17 10:24 Vital Signs Temperature 97.7 F 09/26/17 09:17 Pulse Rate 76 09/26/17 09:17 Respiratory Rate 18 09/26/17 09:17 Blood Pressure 107/62 09/26/17 09:17 O2 Sat by Pulse Oximetry (%) Laboratory Last Values Urine Color Lacey 09/25/17 18:02 Urine Appearance Turbid 09/25/17 18:02 Urine pH 5.0 (5.0-8.0) 09/25/17 18:02 Ur Specific [place] 1.028 (1.001-1.035) 09/25/17 18:02 Urine Protein 1+ (NEGATIVE) H 09/25/17 18:02 Urine Glucose (UA) Negative (NEGATIVE) 09/25/17 18:02 Urine Ketones 1+ (NEGATIVE) H 09/25/17 18:02 Urine Blood Negative (NEGATIVE) 09/25/17 18:02 Urine Nitrite Negative (NEGATIVE) 09/25/17 18:02 Urine Bilirubin Negative (<2.0 mg/dL) 09/25/17 18:02 Urine Urobilinogen 2.0 mg/dL (0.2-1.0) H 09/25/17 18:02 Ur Leukocyte Esterase Trace (NEGATIVE) 09/25/17 18:02 Urine WBC (Auto) 214 /hpf (3-5) 09/25/17 18:02 Urine RBC (Auto) 2 /hpf (0-3) 09/25/17 18:02 Urine Mucus Many 09/25/17 18:02 lab noted uti Assessment: 09/26/17 10:26 withdrawal sx uti Plan: continue detox increase oral fluid bactrim ds bid
[2017-09-26 10:45] LABS: CHLORIDE 102 mmol/L (98-107); POTASSIUM 3.6 mmol/L (3.5-5.1); SODIUM 139 mmol/L (136-145)
[2017-09-26 10:53] LABS: ALBUMIN 4.3 g/dl (3.4-5.0); ALK PHOS 104 U/L (45-117); ANION GAP 9 (8-16); BILIRUBIN,TOTAL 0.4 mg/dL (0.2-1.0); BLOOD UREA NITROGEN 11 mg/dL (7-18); CALCIUM 8.8 mg/dL (8.5-10.1); CO2 28 mmol/L (21-32); CREATININE 0.8 mg/dL (0.55-1.02); GLUCOSE,RANDOM 144 mg/dL (74-106); SGOT/AST 29 U/L (15-37); SGPT/ALT 35 U/L (12-78); TOT PROT 7.2 g/dl (6.4-8.2)
[2017-09-26] MEDS: NICOTINE 21 MG/24 HOURS TOPICAL PATCH TD SCH (10:57)
[2017-09-26] MEDS: TRIAMCINOLONE ACET 0.1% 60 ML LOTION TP SCH ×4 (10:57→22:55)
[2017-09-26] MEDS: SULFAMETHOXAZOLE/TRIMETHOPRIM 800MG/160MG D.S. TABLET PO SCH ×2 (10:58→22:11)
--- NOTE | 2017-09-26 11:16 | EKG ---
Test Reason : Blood Pressure : / mmHG Vent. Rate : 068 BPM Atrial Rate : 068 BPM P-R Int : 166 ms QRS Dur : 112 ms QT Int : 430 ms P-R-T Axes : 034 045 049 degrees QTc Int : 457 ms NORMAL SINUS RHYTHM INCOMPLETE RIGHT BUNDLE BRANCH BLOCK BORDERLINE ECG WHEN COMPARED WITH ECG OF 16-JUL-2016 19:11, NO SIGNIFICANT CHANGE WAS FOUND Confirmed by FLORECITA RUSSELL MD ([id number]) on 09/26/2017 11:16:15 AM Referred By: Confirmed By:FLORECITA RUSSELL MD
--- NOTE | 2017-09-26 11:40 | CONSULT ---
[facility] Psychiatric Consult - Data Date of interview: 09/26/17 Admission source: [facility] Identifying data: Xochilt is 26 years old female, single mother of two, living with family, unemployed, with no psychiatric hospitalization history, with long history of alcohol and opiate, nicotine dependence, reports withdrawal symptoms and seeking for detox. Patient reports giving just a month. Substance Abuse History: Smoking Cessation. Smoking history: Current every day smoker. Have you smoked in the past 12 months: Yes. Aproximately how many cigarettes per day: 20. Cigars Per Day: 0. Hx Chewing Tobacco Use: No. Initiated information on smoking cessation: Yes. 'Breaking Loose' booklet given : 09/25/17. - Substance & Tx. History. Hx Alcohol Use: Yes. Hx Substance Use : Yes. Substance Use Type: Alcohol, Cocaine, Opiates. Hx Substance Use Treatment: Yes (2016 [facility]) Medical History: Asthma,m Weight loss, Psoriasis. Psychiatric History: Patient reports history of anxiety and depression, reports takijg in ths pasr: Seroquel 300mg po qhs,. Zoloft 100mg poqd Physical/Sexual Abuse/Trauma History: Denies Additional Comment: Seroquel 300mg po qhs,. Zoloft 100mg poqd Mental Status Exam - Mental Status Exam Alert and Oriented to: Person Cognitive Function: Fair Patient Appearance: Well Groomed Mood: Anxious Affect: Mood Congruent Patient Behavior: Cooperative Speech Pattern: Appropriate Voice Loudness: Normal Thought Process: Goal Oriented Thought Disorder: Being Controlled Hallucinations: Denies Suicidal Ideation: Denies Homicidal Ideation: Denies Insight/Judgement: Fair Sleep: Difficulty falling asleep Appetite: Weight loss Muscle strength/Tone: Normal Gait/Station: Normal Additional Comments: Seroquel 300mg po qhs,. Zoloft 100mg poqd Psychiatric Findings - Problem List ([place] 1, 2,3) (1) Alcohol dependence with uncomplicated withdrawal Current Visit: Yes Status: Acute (2) Nicotine dependence Current Visit: Yes Status: Acute Qualifiers: Nicotine product type: cigarettes Substance use status: in withdrawal Qualified Code(s): F17.213 - Nicotine dependence, cigarettes, with withdrawal (3) Weight decreased Current Visit: Yes Status: Acute (4) Asthma Current Visit: Yes Status: Chronic Qualifiers: Asthma severity: mild Asthma persistence: intermittent Asthma complication type: with status asthmaticus Qualified Code(s): J45.22 - Mild intermittent asthma with status asthmaticus (5) Psoriasis Current Visit: Yes Status: Chronic (6) Umbilical hernia Current Visit: Yes Status: Chronic Qualifiers: Obstruction and gangrene presence: without obstruction or gangrene Qualified Code(s): K42.9 - Umbilical hernia without obstruction or gangrene (7) Abscess of forearm, right Current Visit: No Status: Acute (8) Opioid dependence on agonist therapy Current Visit: No Status: Acute (9) Post-dates Current Visit: No Status: Acute (10) Alcohol dependence Current Visit: No Status: Chronic (11) Cocaine dependence, uncomplicated Current Visit: No Status: Chronic (12) Drug-induced mood disorder Current Visit: No Status: Chronic (13) Opioid dependence with withdrawal Current Visit: No Status: Chronic (14) PCP (phencyclidine) abuse Current Visit: No Status: Chronic (15) Substance induced mood disorder Current Visit: No Status: Chronic (16) Substance-induced sleep disorder Current Visit: No Status: Chronic - Initial Treatment Plan Initial Treatment Plan: Seroquel 200mg po qhs,. Zoloft 100mg poqd
[2017-09-26] MEDS: SERTRALINE HCL 50 MG TABLET (FP) PO SCH (14:00)
[2017-09-26] MEDS: THIAMINE HCL 100 MG TABLET (FP) PO SCH (22:11)
[2017-09-26] MEDS: QUEtiapine FUMARATE 200 MG TABLET PO SCH (22:11)
[2017-09-26] MEDS: SENNOSIDES 8.6MG TABLET (FP) PO SCH (22:11)
[2017-09-27] MEDS: DOCUSATE SODIUM 100 MG CAPSULE (FP) PO SCH ×3 (05:59→22:10)
[2017-09-27] MEDS: chlordiazePOXIDE HCL 25 MG CAPSULE PO SCH ×2 (05:59→10:11)
[2017-09-27] MEDS: METHADONE HCL 5 MG TABLET (FOR DETOX USE ONLY) PO SCH (10:09)
[2017-09-27] MEDS: SULFAMETHOXAZOLE/TRIMETHOPRIM 800MG/160MG D.S. TABLET PO SCH ×2 (10:11→22:15)
[2017-09-27] MEDS: SERTRALINE HCL 50 MG TABLET (FP) PO SCH (10:11)
[2017-09-27] MEDS: TRIAMCINOLONE ACET 0.1% 60 ML LOTION TP SCH ×5 (10:12→22:36)
[2017-09-27] MEDS: NICOTINE 21 MG/24 HOURS TOPICAL PATCH TD SCH (10:12)
--- NOTE | 2017-09-27 13:45 | PN ---
S CIWA - CIWA Score Nausea/Vomitin-No Nausea/No Vomiting Muscle Tremors: 4-Moderate,w/Arms Extend Anxiety: 4-Mod. Anxious/Guarded Agitation: 3 Paroxysmal Sweats: 1-Minimal Palms Moist Orientation: 0-Oriented Tacttile Disturbances: 0-None Visual Disturbances: 0-None Headache: 0-None Present BHS COWS - Scale Resting Pulse: 1= [place] 81-100 Sweatin= Chills/Flushing Restless Observation: 3= Extraneous Movement Pupil Size: 2= Moderately Dilated Bone or Joint Aches: 1= Mild Discomfort Runny Nose/ Eye Tearin= None GI Upset > 30mins: 0= None Tremor Observation of Outstretched Hands: 2= Slight Tremor Visible Yawning Observation: 1= 1-2x During Session Anxiety or Irritability: 2=Irritable/Anxious Goose Flesh Skin: 0=Smooth Skin COWS Score: 13 S Progress Note (SOAP) Subjective: ANXIETY,RESTLESS. ALERT O X 3. OOB AMBULATING WITH STEADY GAIT. Objective: 09/27/17 13:49 Vital Signs 09/27/17 09/27/17 07:21 10:06 Temperature 97.3 F L 98.6 F Pulse Rate 58 L 88 Respiratory 16 16 Rate Blood Pressure 118/71 127/75 Laboratory Tests 09/25/17 09/25/17 09/26/17 11:30 18:02 08:50 WBC 9.2 RBC 4.06 Hgb 13.2 Hct 38.2 MCV 94.2 MCH 32.4 MCHC 34.4 RDW 14.0 Plt Count 214 D MPV 9.9 Sodium Potassium Chloride Carbon Dioxide Anion Gap BUN Creatinine Creat Clearance w eGFR Random Glucose Calcium Total Bilirubin AST ALT Alkaline Phosphatase Total Protein Albumin Urine Color Lacey Urine Appearance Turbid Urine pH 5.0 Ur Specific [place] 1.028 Urine Protein 1+ H Urine Glucose (UA) Negative Urine Ketones 1+ H Urine Blood Negative Urine Nitrite Negative Urine Bilirubin Negative Urine Urobilinogen 2.0 H Ur Leukocyte Esterase Trace Urine WBC (Auto) 214 Urine RBC (Auto) 2 Urine Mucus Many RPR Titer HIV 1&2 Antibody Screen Negative HIV P24 Antigen Negative 09/26/17 09/26/17 08:50 08:50 WBC RBC Hgb Hct MCV MCH MCHC RDW Plt Count MPV Sodium 139 Potassium 3.6 Chloride 102 Carbon Dioxide 28 Anion Gap 9 BUN 11 Creatinine 0.8 Creat Clearance w eGFR > 60 Random Glucose 144 H Calcium 8.8 Total Bilirubin 0.4 D AST 29 ALT 35 Alkaline Phosphatase 104 Total Protein 7.2 Albumin 4.3 Urine Color Urine Appearance Urine pH Ur Specific [place] Urine Protein Urine Glucose (UA) Urine Ketones Urine Blood Urine Nitrite Urine Bilirubin Urine Urobilinogen Ur Leukocyte Esterase Urine WBC (Auto) Urine RBC (Auto) Urine Mucus RPR Titer Nonreactive HIV 1&2 Antibody Screen HIV P24 Antigen Assessment: 09/27/17 13:49 WITHDRAWAL SX Plan: CONTINUE DETOX
[2017-09-27] MEDS: chlordiazePOXIDE 5 MG CAPSULE PO SCH ×2 (17:08→22:09)
[2017-09-27] MEDS: SENNOSIDES 8.6MG TABLET (FP) PO SCH (22:10)
[2017-09-27] MEDS: QUEtiapine FUMARATE 200 MG TABLET PO SCH (22:10)
[2017-09-27] MEDS: THIAMINE HCL 100 MG TABLET (FP) PO SCH (22:15)
[2017-09-28] MEDS: DOCUSATE SODIUM 100 MG CAPSULE (FP) PO SCH ×3 (05:43→22:23)
[2017-09-28] MEDS: chlordiazePOXIDE 5 MG CAPSULE PO SCH ×2 (05:43→10:46)
[2017-09-28] MEDS: SERTRALINE HCL 50 MG TABLET (FP) PO SCH (10:46)
[2017-09-28] MEDS: METHADONE HCL 5 MG TABLET (FOR DETOX USE ONLY) PO SCH (10:46)
[2017-09-28] MEDS: SULFAMETHOXAZOLE/TRIMETHOPRIM 800MG/160MG D.S. TABLET PO SCH ×2 (10:46→22:23)
[2017-09-28] MEDS: TRIAMCINOLONE ACET 0.1% 60 ML LOTION TP SCH ×4 (10:50→22:23)
[2017-09-28] MEDS: NICOTINE 21 MG/24 HOURS TOPICAL PATCH TD SCH (10:50)
--- NOTE | 2017-09-28 15:23 | PN ---
BHS Progress Note (SOAP) Subjective: sweats abd cramp sleep disturbance Objective: 09/28/17 15:22 A & O x 3 gait steady Vital Signs Temperature 97.2 F L 09/28/17 14:34 Pulse Rate 86 09/28/17 14:34 Respiratory Rate 18 09/28/17 14:34 Blood Pressure 110/66 09/28/17 14:34 O2 Sat by Pulse Oximetry (%) Assessment: 09/28/17 15:22 withdrawal sx Plan: continue detox
[2017-09-28] MEDS: chlordiazePOXIDE HCL 10 MG CAPSULE PO SCH ×2 (17:06→22:24)
[2017-09-28] MEDS: QUEtiapine FUMARATE 200 MG TABLET PO SCH (22:24)
[2017-09-28] MEDS: SENNOSIDES 8.6MG TABLET (FP) PO SCH (22:24)
[2017-09-28] MEDS: THIAMINE HCL 100 MG TABLET (FP) PO SCH (22:24)
[2017-09-29] MEDS: chlordiazePOXIDE HCL 10 MG CAPSULE PO SCH ×2 (05:38→10:36)
[2017-09-29] MEDS: DOCUSATE SODIUM 100 MG CAPSULE (FP) PO SCH ×2 (05:38→13:26)
[2017-09-29] MEDS ORDERED: METHADONE HCL 10 MG TABLET (FOR DETOX USE ONLY) PO SCH (10:00)
[2017-09-29] MEDS: SULFAMETHOXAZOLE/TRIMETHOPRIM 800MG/160MG D.S. TABLET PO SCH (10:36)
[2017-09-29] MEDS: SERTRALINE HCL 50 MG TABLET (FP) PO SCH (10:36)
[2017-09-29] MEDS: TRIAMCINOLONE ACET 0.1% 60 ML LOTION TP SCH ×2 (10:37→13:26)
[2017-09-29] MEDS: NICOTINE 21 MG/24 HOURS TOPICAL PATCH TD SCH (10:37)
[2017-09-29 14:08] VITALS: BP 91/67; PULSE 95; TEMP 96.6
--- NOTE | 2017-09-29 14:39 | PN ---
BHS Progress Note (SOAP) Subjective: FEELING BETTER LESS SWEAT NO BODY ACHES NO TREMOR LESS ANXIOUSNESS Objective: 09/29/17 14:38 Vital Signs Temperature 96.6 F L 09/29/17 14:07 Pulse Rate 95 H 09/29/17 14:07 Respiratory Rate 18 09/29/17 14:07 Blood Pressure 91/67 09/29/17 14:07 O2 Sat by Pulse Oximetry (%) Laboratory Last Values WBC 9.2 K/mm3 (4.0-10.0) 09/26/17 08:50 RBC 4.06 M/mm3 (3.60-5.2) 09/26/17 08:50 Hgb 13.2 GM/dL (10.7-15.3) 09/26/17 08:50 Hct 38.2 % (32.4-45.2) 09/26/17 08:50 MCV 94.2 fl (80-96) 09/26/17 08:50 MCH 32.4 pg (25.7-33.7) 09/26/17 08:50 MCHC 34.4 g/dl (32.0-36.0) 09/26/17 08:50 RDW 14.0 % (11.6-15.6) 09/26/17 08:50 Plt Count 214 K/MM3 (134-434) D 09/26/17 08:50 MPV 9.9 fl (7.5-11.1) 09/26/17 08:50 Sodium 139 mmol/L (136-145) 09/26/17 08:50 Potassium 3.6 mmol/L (3.5-5.1) 09/26/17 08:50 Chloride 102 mmol/L (98-107) 09/26/17 08:50 Carbon Dioxide 28 mmol/L (21-32) 09/26/17 08:50 Anion Gap 9 (8-16) 09/26/17 08:50 BUN 11 mg/dL (7-18) 09/26/17 08:50 Creatinine 0.8 mg/dL (0.55-1.02) 09/26/17 08:50 Creat Clearance w eGFR > 60 (>60) 09/26/17 08:50 Random Glucose 144 mg/dL (74-106) H 09/26/17 08:50 Calcium 8.8 mg/dL (8.5-10.1) 09/26/17 08:50 Total Bilirubin 0.4 mg/dL (0.2-1.0) D 09/26/17 08:50 AST 29 U/L (15-37) 09/26/17 08:50 ALT 35 U/L (12-78) 09/26/17 08:50 Alkaline Phosphatase 104 U/L (45-117) 09/26/17 08:50 Total Protein 7.2 g/dl (6.4-8.2) 09/26/17 08:50 Albumin 4.3 g/dl (3.4-5.0) 09/26/17 08:50 Urine Color Lacey 09/25/17 18:02 Urine Appearance Turbid 09/25/17 18:02 Urine pH 5.0 (5.0-8.0) 09/25/17 18:02 Ur Specific [place] 1.028 (1.001-1.035) 09/25/17 18:02 Urine Protein 1+ (NEGATIVE) H 09/25/17 18:02 Urine Glucose (UA) Negative (NEGATIVE) 09/25/17 18:02 Urine Ketones 1+ (NEGATIVE) H 09/25/17 18:02 Urine Blood Negative (NEGATIVE) 09/25/17 18:02 Urine Nitrite Negative (NEGATIVE) 09/25/17 18:02 Urine Bilirubin Negative (<2.0 mg/dL) 09/25/17 18:02 Urine Urobilinogen 2.0 mg/dL (0.2-1.0) H 09/25/17 18:02 Ur Leukocyte Esterase Trace (NEGATIVE) 09/25/17 18:02 Urine WBC (Auto) 214 /hpf (3-5) 09/25/17 18:02 Urine RBC (Auto) 2 /hpf (0-3) 09/25/17 18:02 Urine Mucus Many 09/25/17 18:02 RPR Titer Nonreactive (NONREACTIVE) 09/26/17 08:50 HIV 1&2 Antibody Screen Negative 09/25/17 11:30 HIV P24 Antigen Negative 09/25/17 11:30 LAB NOTED Assessment: 09/29/17 14:38 MILD WITHDRAWAL SX Plan: MEDICALLY SUPERVISED DETOX BACTRIM DS BID X 5 DAYS
--- NOTE | 2017-09-29 15:16 | DS ---
[facility] Detox Discharge Summary Admission Date: 09/25/17 Discharge Date: 09/29/17 - History Present History: Alcohol Dependence, Opioid Dependence Additional Comments: 26 years old female admitted 09/25/17 for alcohol and opiate withdrawal sx patient reported feeling better denies opiate alcohol withdrawal sx alert oriented x 3 no acute distress aftercare new focus for medical psychoeducation and addiction issues increase oral fluid personal hygiene bactrim ds bid x 5 days - Physical Exam Results Vital Signs: Vital Signs Temperature 96.6 F L 09/29/17 14:07 Pulse Rate 95 H 09/29/17 14:07 Respiratory Rate 18 09/29/17 14:07 Blood Pressure 91/67 09/29/17 14:07 O2 Sat by Pulse Oximetry (%) Pertinent Admission Physical Exam Findings: alcohol and opiate withdrawal sx Vital Signs Temperature 96.6 F L 09/29/17 14:07 Pulse Rate 95 H 09/29/17 14:07 Respiratory Rate 18 09/29/17 14:07 Blood Pressure 91/67 09/29/17 14:07 O2 Sat by Pulse Oximetry (%) Laboratory Last Values WBC 9.2 K/mm3 (4.0-10.0) 09/26/17 08:50 RBC 4.06 M/mm3 (3.60-5.2) 09/26/17 08:50 Hgb 13.2 GM/dL (10.7-15.3) 09/26/17 08:50 Hct 38.2 % (32.4-45.2) 09/26/17 08:50 MCV 94.2 fl (80-96) 09/26/17 08:50 MCH 32.4 pg (25.7-33.7) 09/26/17 08:50 MCHC 34.4 g/dl (32.0-36.0) 09/26/17 08:50 RDW 14.0 % (11.6-15.6) 09/26/17 08:50 Plt Count 214 K/MM3 (134-434) D 09/26/17 08:50 MPV 9.9 fl (7.5-11.1) 09/26/17 08:50 Sodium 139 mmol/L (136-145) 09/26/17 08:50 Potassium 3.6 mmol/L (3.5-5.1) 09/26/17 08:50 Chloride 102 mmol/L (98-107) 09/26/17 08:50 Carbon Dioxide 28 mmol/L (21-32) 09/26/17 08:50 Anion Gap 9 (8-16) 09/26/17 08:50 BUN 11 mg/dL (7-18) 09/26/17 08:50 Creatinine 0.8 mg/dL (0.55-1.02) 09/26/17 08:50 Creat Clearance w eGFR > 60 (>60) 09/26/17 08:50 Random Glucose 144 mg/dL (74-106) H 09/26/17 08:50 Calcium 8.8 mg/dL (8.5-10.1) 09/26/17 08:50 Total Bilirubin 0.4 mg/dL (0.2-1.0) D 09/26/17 08:50 AST 29 U/L (15-37) 09/26/17 08:50 ALT 35 U/L (12-78) 09/26/17 08:50 Alkaline Phosphatase 104 U/L (45-117) 09/26/17 08:50 Total Protein 7.2 g/dl (6.4-8.2) 09/26/17 08:50 Albumin 4.3 g/dl (3.4-5.0) 09/26/17 08:50 Urine Color [place]acey 09/25/17 18:02 Urine Appearance Turbid 09/25/17 18:02 Urine pH 5.0 (5.0-8.0) 09/25/17 18:02 Ur Specific [place] 1.028 (1.001-1.035) 09/25/17 18:02 Urine Protein 1+ (NEGATIVE) H 09/25/17 18:02 Urine Glucose (UA) Negative (NEGATIVE) 09/25/17 18:02 Urine Ketones 1+ (NEGATIVE) H 09/25/17 18:02 Urine Blood Negative (NEGATIVE) 09/25/17 18:02 Urine Nitrite Negative (NEGATIVE) 09/25/17 18:02 Urine Bilirubin Negative (<2.0 mg/dL) 09/25/17 18:02 Urine Urobilinogen 2.0 mg/dL (0.2-1.0) H 09/25/17 18:02 Ur Leukocyte Esterase Trace (NEGATIVE) 09/25/17 18:02 Urine WBC (Auto) 214 /hpf (3-5) 09/25/17 18:02 Urine RBC (Auto) 2 /hpf (0-3) 09/25/17 18:02 Urine Mucus Many 09/25/17 18:02 RPR Titer Nonreactive (NONREACTIVE) 09/26/17 08:50 HIV 1&2 Antibody Screen Negative 09/25/17 11:30 HIV P24 Antigen Negative 09/25/17 11:30 lab noted uti - Treatment Hospital Course: Detox Protocol Followed, Detoxed Safely, Responded well, Discharged Condition Good, Rehab Referral Accepted Patient has Accepted a Rehab Referral to: new focus - Medication Discharge Medications: Ambulatory Orders Quetiapine Fumarate [Seroquel -] 300 mg PO HS 09/25/17 Quetiapine Fumarate [Seroquel -] 200 mg PO HS #30 tablet 09/26/17 Sertraline HCl 100 mg PO DAILY #30 tablet 09/26/17 Sulfamethoxazole/Trimethoprim [Bactrim DS -] 1 each PO BID #10 tablet 09/29/17 - Diagnosis (1) Alcohol dependence with uncomplicated withdrawal Current Visit: Yes Status: Acute (2) Asthma Current Visit: Yes Status: Chronic Qualifiers: Asthma severity: mild Asthma persistence: intermittent Asthma complication type: with status asthmaticus Qualified Code(s): J45.22 - Mild intermittent asthma with status asthmaticus (3) Constipation Current Visit: Yes Status: Chronic Qualifiers: Constipation type: slow transit constipation Qualified Code(s): K59.01 - Slow transit constipation (4) Weight decreased Current Visit: Yes Status: Acute (5) Umbilical hernia Current Visit: Yes Status: Chronic Qualifiers: Obstruction and gangrene presence: without obstruction or gangrene Qualified Code(s): K42.9 - Umbilical hernia without obstruction or gangrene (6) Nicotine dependence Current Visit: Yes Status: Acute Qualifiers: Nicotine product type: cigarettes Substance use status: in withdrawal Qualified Code(s): F17.213 - Nicotine dependence, cigarettes, with withdrawal (7) Psoriasis Current Visit: Yes Status: Chronic (8) Encounter for monitoring Suboxone maintenance therapy Current Visit: Yes Status: Chronic - AMA Did Patient Leave Against Medical Advice: No
[2017-09-29] MEDS ORDERED: SULFAMETHOXAZOLE/TRIMETHOPRIM 800MG/160MG D.S. TABLET PO SCH (22:00)
[2017-09-30] MEDS ORDERED: METHADONE HCL 5 MG TABLET (FOR DETOX USE ONLY) PO SCH (06:00)
== END 2017-09-29 15:35 | disposition home or self-care (01) | DRG 773 ==
LOC: YASAS 12:24 → Y6N 14:28
PROVIDERS: ADMIT Family Medicine Addiction Medicine; ATTEND Family Medicine Addiction Medicine
PROC: HZ2ZZZZ Detoxification Services for Substance Abuse Treatment (ICD-10-PCS; principal; 2017-09-25)
DX: F11.23 Opioid dependence with withdrawal (principal); F10.230 Alcohol dependence with withdrawal, uncomplicated; F17.213 Nicotine dependence, cigarettes, with withdrawal; K59.01 Slow transit constipation; J45.22 Mild intermittent asthma with status asthmaticus; L40.9 Psoriasis, unspecified; R63.4 Abnormal weight loss; Z68.22 Body mass index [BMI] 22.0-22.9, adult; Z51.81 Encounter for therapeutic drug level monitoring; Z88.8 Allergy status to other drugs, medicaments and biological substances
CPT/HCPCS: 36415; 80053; 81003; 81015; 85027; 86593; 87389; 93005; 93010

== ENCOUNTER 2017-11-19 11:20 | Inpatient (IN) | payer OTHER ==
[2017-11-19 15:13] VITALS: BMI 19.8
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
[2017-11-19] MEDS ORDERED: LOPERAMIDE HCL 2 MG CAPSULE PO PRN (18:12)
[2017-11-19] MEDS ORDERED: MAGNESIUM HYDROX 2400MG/30ML ORAL SUSPENSION 30 ML CUP PO PRN (18:12)
[2017-11-19] MEDS ORDERED: P-EPHED 60MG/TRIPROLIDI 2.5MG TABLET PO PRN (18:12)
[2017-11-19] MEDS ORDERED: MAGNESIUM CITRATE 300 ML BOTTLE PO PRN (18:12)
[2017-11-19] MEDS ORDERED: IBUPROFEN 400 MG TABLET (FP) PO PRN (18:12)
[2017-11-19] MEDS ORDERED: guaiFENesin/D-METHORPHAN HB 10 ML UNIT-DOSE CUPS PO PRN (18:12)
[2017-11-19] MEDS ORDERED: NICOTINE POLACRILEX 2 MG GUM BC PRN (18:12)
[2017-11-19] MEDS ORDERED: MAG HYDROX/AL HYDROX/SIMETH 30 ML UNIT-DOSE CUP PO PRN (18:12)
[2017-11-19] MEDS ORDERED: hydrOXYzine PAMOATE 50 MG CAPSULE (FP) PO PRN (18:12)
[2017-11-19] MEDS ORDERED: HYDROCORTISONE 1% TOPICAL CREAM 30 GM TUBE TP PRN (18:15)
[2017-11-19] MEDS ORDERED: METHADONE HCL 10 MG TABLET (FOR DETOX USE ONLY) PO ONE ×2 (18:45→23:00)
[2017-11-19] MEDS ORDERED: MELATONIN 5 MG TABLETS PO PRN (22:00)
[2017-11-20] MEDS: THIAMINE HCL 100 MG TABLET (FP) PO SCH ×2 (00:16→22:33)
[2017-11-20] MEDS: chlordiazePOXIDE HCL 25 MG CAPSULE PO SCH ×5 (00:16→22:33)
[2017-11-20 03:07] LABS: URINE APPEARANCE TURBID; URINE BILIRUBIN NEGATIVE (<2.0 mg/dL); URINE COLOR YELLOW; URINE GLUCOSE (UA) NEGATIVE (NEGATIVE); URINE KETONE NEGATIVE (NEGATIVE); URINE LEUK ESTERASE NEGATIVE (NEGATIVE); URINE NITRITE NEGATIVE (NEGATIVE)
[2017-11-20 03:09] LABS: URINE PROTEIN 1+ (NEGATIVE)
[2017-11-20 03:17] LABS: URINE BACTERIA FEW /hpf (NONE SEEN); URINE MUCUS MANY
[2017-11-20] MEDS ORDERED: METHADONE HCL 10 MG TABLET (FOR DETOX USE ONLY) PO SCH (10:00)
--- NOTE | 2017-11-20 10:10 | PN ---
[facility] CIWA - CIWA Score Nausea/Vomitin Muscle Tremors: 3 Anxiety: 2 Agitation: 2 Paroxysmal Sweats: 1-Minimal Palms Moist Orientation: 0-Oriented Tacttile Disturbances: 1-Very Mild Itch/Numbness Auditory Disturbances: 1-Very Mild Visual Disturbances: 0-None Headache: 2-Mild CIWA-Ar Total Score: 15 BHS COWS - Scale Resting Pulse: 0= [place] 80 or Below Sweatin= Chills/Flushing Restless Observation: 3= Extraneous Movement Pupil Size: 1= Pupils >than Normal Bone or Joint Aches: 2= Severe Diffuse Aches Runny Nose/ Eye Tearin= Runny Nose/Eyes GI Upset > 30mins: 2= Nausea/Diarrhea Tremor Observation of Outstretched Hands: 2= Slight Tremor Visible Yawning Observation: 1= 1-2x During Session Anxiety or Irritability: 2=Irritable/Anxious Goose Flesh Skin: 0=Smooth Skin COWS Score: 16 S Progress Note (SOAP) Subjective: alert,irritable,anxious,interrupted sleep,pain in the body and back,tremor Objective: 11/20/17 10:07 Vital Signs Temperature 97.7 F 11/20/17 09:19 Pulse Rate 59 L 11/20/17 09:19 Respiratory Rate 18 11/20/17 09:19 Blood Pressure 104/71 11/20/17 09:19 O2 Sat by Pulse Oximetry (%) ekg nsr wioth sinys arrhythmia normal ecg qt/qtc 394/437 Laboratory Last Values Urine Color Yellow 11/19/17 22:30 Urine Appearance Turbid 11/19/17 22:30 Urine pH 6.0 (5.0-8.0) 11/19/17 22:30 Ur Specific [place] 1.027 (1.001-1.035) 11/19/17 22:30 Urine Protein 1+ (NEGATIVE) H 11/19/17 22:30 Urine Glucose (UA) Negative (NEGATIVE) 11/19/17 22:30 Urine Ketones Negative (NEGATIVE) 11/19/17 22:30 Urine Blood Negative (NEGATIVE) 11/19/17 22:30 Urine Nitrite Negative (NEGATIVE) 11/19/17 22:30 Urine Bilirubin Negative (<2.0 mg/dL) 11/19/17 22:30 Urine Urobilinogen 2.0 mg/dL (0.2-1.0) H 11/19/17 22:30 Ur Leukocyte Esterase Negative (NEGATIVE) 11/19/17 22:30 Urine WBC (Auto) 123 /hpf (3-5) 11/19/17 22:30 Urine RBC (Auto) 4 /hpf (0-3) 11/19/17 22:30 Urine Bacteria Few /hpf (NONE SEEN) 11/19/17 22:30 Urine Mucus Many 11/19/17 22:30 Assessment: 11/20/17 10:09 withdrawal symptom Plan: continue detox,batrim ds 1 tab po bid for uti
--- NOTE | 2017-11-20 10:30 | EKG ---
Test Reason : Blood Pressure : / mmHG Vent. Rate : 074 BPM Atrial Rate : 074 BPM P-R Int : 164 ms QRS Dur : 100 ms QT Int : 394 ms P-R-T Axes : 060 075 071 degrees QTc Int : 437 ms NORMAL SINUS RHYTHM WITH SINUS ARRHYTHMIA NORMAL ECG WHEN COMPARED WITH ECG OF 25-SEP-2017 15:18, NO SIGNIFICANT CHANGE WAS FOUND Confirmed by KAMALA ATWOOD MD ([id number]) on 11/20/2017 10:29:41 AM Referred By: Confirmed By:KAMALA ATWOOD MD
--- NOTE | 2017-11-20 10:41 | CONSULT ---
[facility] Psychiatric Consult - Data Date of interview: 11/20/17 Admission source: [facility] Identifying data: This is 26 years old female, single mother of two, homeless, unemployed, with no income, with no psychiatric hospitalization history, with history of Alcohol, Opioids, Cocaine, PCP abuse/dependence. Patient reports Alcohol withdrawal symptoms and seeking for detox. Substance Abuse History: Urine Drug Screen Results: THC-Marijuana, NABEEL-Cocaine, OPI-Opiates, PCP-Phencyclidine. - Reproductive History. Patient is a Female of Child Bearing Age (11 -55 yrs old): Yes. Last Menstrual Period: 10/26/15. LMP comment: REPORTS LMP WAS 2 YRS AGO. Patient : No. - Smoking Cessation. Smoking history: Current every day smoker. Have you smoked in the past 12 months: Yes. Aproximately how many cigarettes per day: 20. Cigars Per Day: 0. Hx Chewing Tobacco Use: No. Initiated information on smoking cessation : Yes. 'Breaking Loose' booklet given: 11/19/17. - Substance & Tx. History. Hx Alcohol Use: Yes. Hx Substance Use: Yes. Substance Use Type: Alcohol, Cocaine, Heroin. Hx Substance Use Treatment: Yes (DETOX: 09/2017). - Substances Abused. Heroin. Route: Injection. Frequency: Daily. Amount used: 4-5 bags. Age of first use: 24. Date of Last Use: 11/19/17. Cocaine. Route: Injection. Frequency: Daily. Amount used: $80. Age of first use: 26. Date of Last Use: 11/19/17. Alcohol-beer/vodka. Route: Oral. Frequency: Daily. Amount used: 2-6 pks./1 pt. Age of first use: 16. Date of Last Use: 11/19/17 Medical History: UTI history, Asthma, Psoriasis, Weight loss history Psychiatric History: Patient reports anxiety and depression, oversedated at this moment and poor historian. Patient denies psychiatric hospitalization history,. As per computer has been on: Seroquel 300mg po qhs. Zoloft 100mg poqd. As per chart denies suyicdial, homicidal history Physical/Sexual Abuse/Trauma History: Unknown Additional Comment: Urine Drug Screen Results: THC-Marijuana, NABEEL-Cocaine, OPI- Opiates, PCP-Phencyclidine Mental Status Exam - Mental Status Exam Alert and Oriented to: Person Cognitive Function: Fair Patient Appearance: Unkempt Mood: Sad, Withdrawn Affect: Flat Patient Behavior: Sedated Speech Pattern: Delayed Voice Loudness: Mildly Soft/Quiet Thought Process: Circumstantial Thought Disorder: Being Controlled Hallucinations: Denies Suicidal Ideation: Denies Homicidal Ideation: Denies Insight/Judgement: Fair Sleep: Difficulty falling asleep Appetite: Weight loss Muscle strength/Tone: Moderate Hypotonicity Gait/Station: Shuffling Additional Comments: Seroquel 300mg po qhs. Zoloft 100mg poqd Psychiatric Findings - Problem List ([place] 1, 2,3) (1) UTI (urinary tract infection) Current Visit: Yes Status: Acute (2) Umbilical hernia Current Visit: Yes Status: Acute Qualifiers: (3) Alcohol dependence with uncomplicated withdrawal Current Visit: Yes Status: Chronic (4) Asthma Current Visit: Yes Status: Chronic Qualifiers: (5) Cocaine dependence, uncomplicated Current Visit: Yes Status: Chronic (6) Nicotine dependence Current Visit: Yes Status: Chronic Qualifiers: (7) Opioid dependence with withdrawal Current Visit: Yes Status: Chronic (8) PCP (phencyclidine) abuse Current Visit: Yes Status: Chronic (9) Psoriasis Current Visit: Yes Status: Chronic (10) Opioid dependence on agonist therapy Current Visit: No Status: Acute (11) Weight decreased Current Visit: No Status: Acute (12) Alcohol dependence Current Visit: No Status: Chronic (13) Drug-induced mood disorder Current Visit: No Status: Chronic (14) Substance induced mood disorder Current Visit: No Status: Chronic (15) Substance-induced sleep disorder Current Visit: No Status: Chronic - Initial Treatment Plan Initial Treatment Plan: Currently oversedated. Consider: Zoloft 100mg po qhs. Seroquel 300mg po qhs. Hold psychiatric medications until patient sedated.
[2017-11-20 10:49] LABS: HEMATOCRIT 42.3 % (32.4-45.2); HEMOGLOBIN 14.4 GM/dL (10.7-15.3); MCH 32.6 pg (25.7-33.7); MEAN CELL VOLUME 96.1 fl (80-96); MEAN PLT VOLUME 9.8 fl (7.5-11.1); PLATELET COUNT 178 K/MM3 (134-434); RBC 4.41 M/mm3 (3.60-5.2); RDW 14.8 % (11.6-15.6); WHITE BLOOD COUNT 4.1 K/mm3 (4.0-10.0)
[2017-11-20] MEDS: chlordiazePOXIDE HCL 25 MG CAPSULE PO PRN ×2 (11:22→23:00)
[2017-11-20] MEDS: NICOTINE 21 MG/24 HOURS TOPICAL PATCH TD SCH (11:24)
[2017-11-20 11:26] LABS: ALBUMIN 3.4 g/dl (3.4-5.0); ANION GAP 10 (8-16); BILIRUBIN,TOTAL 0.4 mg/dL (0.2-1.0); BLOOD UREA NITROGEN 6 mg/dL (7-18); CALCIUM 8.5 mg/dL (8.5-10.1); CHLORIDE 107 mmol/L (98-107); CO2 29 mmol/L (21-32); CREATININE 0.7 mg/dL (0.55-1.02); GLUCOSE,RANDOM 99 mg/dL (74-106); POTASSIUM 3.2 mmol/L (3.5-5.1); SGOT/AST 28 U/L (15-37); SGPT/ALT 31 U/L (12-78); SODIUM 146 mmol/L (136-145); TOT PROT 6.3 g/dl (6.4-8.2)
[2017-11-20 11:27] LABS: ALK PHOS 100 U/L (45-117)
[2017-11-20] MEDS: SULFAMETHOXAZOLE/TRIMETHOPRIM 800MG/160MG D.S. TABLET PO SCH ×2 (11:29→22:33)
[2017-11-21] MEDS: chlordiazePOXIDE HCL 25 MG CAPSULE PO SCH ×3 (05:03→18:22)
--- NOTE | 2017-11-21 08:51 | PN ---
S CIWA - CIWA Score Nausea/Vomitin Muscle Tremors: 3 Anxiety: 3 Agitation: 2 Paroxysmal Sweats: 1-Minimal Palms Moist Orientation: 0-Oriented Tacttile Disturbances: 1-Very Mild Itch/Numbness Auditory Disturbances: 1-Very Mild Visual Disturbances: 0-None Headache: 1-Very Mild CIWA-Ar Total Score: 15 BHS COWS - Scale Resting Pulse: 0= [place] 80 or Below Sweatin= Chills/Flushing Restless Observation: 1= Difficult to Sit Still Pupil Size: 1= Pupils >than Normal Bone or Joint Aches: 2= Severe Diffuse Aches Runny Nose/ Eye Tearin= Nasal Congestion GI Upset > 30mins: 2= Nausea/Diarrhea Tremor Observation of Outstretched Hands: 2= Slight Tremor Visible Yawning Observation: 1= 1-2x During Session Anxiety or Irritability: 2=Irritable/Anxious Goose Flesh Skin: 0=Smooth Skin COWS Score: 13 BHS Progress Note (SOAP) Subjective: alert,irritable,anxious,interrupted sleep,tremor,pain in the body and back Objective: 11/21/17 08:46 Laboratory Last Values WBC 4.1 K/mm3 (4.0-10.0) 11/20/17 07:30 RBC 4.41 M/mm3 (3.60-5.2) 11/20/17 07:30 Hgb 14.4 GM/dL (10.7-15.3) 11/20/17 07:30 Hct 42.3 % (32.4-45.2) 11/20/17 07:30 MCV 96.1 fl (80-96) H 11/20/17 07:30 MCH 32.6 pg (25.7-33.7) 11/20/17 07:30 MCHC 34.0 g/dl (32.0-36.0) 11/20/17 07:30 RDW 14.8 % (11.6-15.6) 11/20/17 07:30 Plt Count 178 K/MM3 (134-434) 11/20/17 07:30 MPV 9.8 fl (7.5-11.1) 11/20/17 07:30 Sodium 146 mmol/L (136-145) H 11/20/17 07:30 Potassium 3.2 mmol/L (3.5-5.1) L 11/20/17 07:30 Chloride 107 mmol/L (98-107) 11/20/17 07:30 Carbon Dioxide 29 mmol/L (21-32) 11/20/17 07:30 Anion Gap 10 (8-16) 11/20/17 07:30 BUN 6 mg/dL (7-18) L 11/20/17 07:30 Creatinine 0.7 mg/dL (0.55-1.02) 11/20/17 07:30 Creat Clearance w eGFR > 60 (>60) 11/20/17 07:30 Random Glucose 99 mg/dL (74-106) 11/20/17 07:30 Calcium 8.5 mg/dL (8.5-10.1) 11/20/17 07:30 Total Bilirubin 0.4 mg/dL (0.2-1.0) 11/20/17 07:30 AST 28 U/L (15-37) 11/20/17 07:30 ALT 31 U/L (12-78) 11/20/17 07:30 Alkaline Phosphatase 100 U/L (45-117) 11/20/17 07:30 Total Protein 6.3 g/dl (6.4-8.2) L 11/20/17 07:30 Albumin 3.4 g/dl (3.4-5.0) 11/20/17 07:30 Urine Color Yellow 11/19/17 22:30 Urine Appearance Turbid 11/19/17 22:30 Urine pH 6.0 (5.0-8.0) 11/19/17 22:30 Ur Specific [place] 1.027 (1.001-1.035) 11/19/17 22:30 Urine Protein 1+ (NEGATIVE) H 11/19/17 22:30 Urine Glucose (UA) Negative (NEGATIVE) 11/19/17 22:30 Urine Ketones Negative (NEGATIVE) 11/19/17 22:30 Urine Blood Negative (NEGATIVE) 11/19/17 22:30 Urine Nitrite Negative (NEGATIVE) 11/19/17 22:30 Urine Bilirubin Negative (<2.0 mg/dL) 11/19/17 22:30 Urine Urobilinogen 2.0 mg/dL (0.2-1.0) H 11/19/17 22:30 Ur Leukocyte Esterase Negative (NEGATIVE) 11/19/17 22:30 Urine WBC (Auto) 123 /hpf (3-5) 11/19/17 22:30 Urine RBC (Auto) 4 /hpf (0-3) 11/19/17 22:30 Urine Bacteria Few /hpf (NONE SEEN) 11/19/17 22:30 Urine Mucus Many 11/19/17 22:30 Hep C Ab Diagnostic 0.1 s/co ratio (0.0-0.9) 11/20/17 07:30 Liver Fibrosis Interp (.) 11/20/17 07:30 Assessment: 11/21/17 08:48 withdrawal symptom Plan: continue detox k dur 20 meq po bid ,k is 3.2
[2017-11-21] MEDS: SULFAMETHOXAZOLE/TRIMETHOPRIM 800MG/160MG D.S. TABLET PO SCH ×2 (10:21→22:22)
[2017-11-21] MEDS: POTASSIUM CHLORIDE TABS 20 MEQ TABLET.ER (FP) PO SCH ×2 (10:21→22:22)
[2017-11-21] MEDS: METHADONE HCL 5 MG TABLET (FOR DETOX USE ONLY) PO SCH (10:21)
[2017-11-21] MEDS: NICOTINE 21 MG/24 HOURS TOPICAL PATCH TD SCH (10:22)
[2017-11-21] MEDS: chlordiazePOXIDE 5 MG CAPSULE PO SCH (22:23)
[2017-11-21] MEDS: THIAMINE HCL 100 MG TABLET (FP) PO SCH (22:23)
[2017-11-21] MEDS: ACETAMINOPHEN 325 MG TABLET (FP) PO PRN (22:24)
[2017-11-21] MEDS: MENTHOL/PHENOL 1 EACH UD MM PRN (22:26)
[2017-11-22] MEDS: chlordiazePOXIDE 5 MG CAPSULE PO SCH ×3 (05:37→17:44)
--- NOTE | 2017-11-22 09:25 | PN ---
BHS Progress Note (SOAP) Subjective: alert,irritable,anxious,sorethroat,interrupted sleep Objective: 11/22/17 09:24 Vital Signs Temperature 97.7 F 11/22/17 06:15 Pulse Rate 75 11/22/17 06:15 Respiratory Rate 16 11/22/17 06:15 Blood Pressure 91/59 11/22/17 06:15 O2 Sat by Pulse Oximetry (%) Assessment: 11/22/17 09:24 withdrawal symptom Plan: continue detox
[2017-11-22] MEDS: POTASSIUM CHLORIDE TABS 20 MEQ TABLET.ER (FP) PO SCH ×2 (10:22→22:36)
[2017-11-22] MEDS: METHADONE HCL 5 MG TABLET (FOR DETOX USE ONLY) PO SCH (10:22)
[2017-11-22] MEDS: NICOTINE 21 MG/24 HOURS TOPICAL PATCH TD SCH (10:23)
[2017-11-22] MEDS: FLUOCINONIDE 0.05% CREAM (60 GM TUBE) TP SCH ×2 (11:40→22:37)
[2017-11-22] MEDS: AMOXICILLIN 500 MG CAPSULE (FP) PO SCH ×2 (15:07→22:36)
[2017-11-22] MEDS: THIAMINE HCL 100 MG TABLET (FP) PO SCH (22:36)
[2017-11-22] MEDS: chlordiazePOXIDE HCL 10 MG CAPSULE PO SCH (22:36)
[2017-11-22] MEDS: MENTHOL/PHENOL 1 EACH UD MM PRN (22:40)
[2017-11-23] MEDS: chlordiazePOXIDE HCL 10 MG CAPSULE PO SCH ×2 (05:09→10:23)
[2017-11-23] MEDS: AMOXICILLIN 500 MG CAPSULE (FP) PO SCH ×2 (05:09→15:00)
[2017-11-23] MEDS: ACETAMINOPHEN 325 MG TABLET (FP) PO PRN (05:10)
[2017-11-23] MEDS: MENTHOL/PHENOL 1 EACH UD MM PRN (05:12)
[2017-11-23] MEDS ORDERED: METHADONE HCL 10 MG TABLET (FOR DETOX USE ONLY) PO SCH (10:00)
[2017-11-23 10:24] VITALS: BP 116/65; PULSE 77; TEMP 97
[2017-11-23] MEDS: FLUOCINONIDE 0.05% CREAM (60 GM TUBE) TP SCH (10:24)
[2017-11-23] MEDS: POTASSIUM CHLORIDE TABS 20 MEQ TABLET.ER (FP) PO SCH (10:24)
[2017-11-23] MEDS: NICOTINE 21 MG/24 HOURS TOPICAL PATCH TD SCH (10:25)
--- NOTE | 2017-11-23 15:23 | PN ---
BHS Progress Note (SOAP) Subjective: Requesting to leave today as opposed tomorrow Objective: 11/23/17 15:21 A & O x 3 Vital Signs Temperature 97.0 F L 11/23/17 10:23 Pulse Rate 77 11/23/17 10:23 Respiratory Rate 18 11/23/17 10:23 Blood Pressure 116/65 11/23/17 10:23 O2 Sat by Pulse Oximetry (%) Assessment: 11/23/17 15:22 pt completed detox, in no acute distress Plan: For discharge
--- NOTE | 2017-11-23 15:25 | DS ---
[facility] Detox Discharge Summary Admission Date: 11/19/17 Discharge Date: 11/23/17 - History Additional Comments: Pt being discharged Completed librium dosing per protocol Will f/u with PMD and do outpatient meetings - Physical Exam Results Vital Signs: Vital Signs Temperature 97.0 F L 11/23/17 10:23 Pulse Rate 77 11/23/17 10:23 Respiratory Rate 18 11/23/17 10:23 Blood Pressure 116/65 11/23/17 10:23 O2 Sat by Pulse Oximetry (%) Pertinent Admission Physical Exam Findings: withdrawal sx - Medication Discharge Medications: Ambulatory Orders Quetiapine Fumarate [Seroquel -] 300 mg PO HS 09/25/17 Sertraline HCl 100 mg PO DAILY #30 tablet 09/26/17 Amoxicillin - [Amoxicillin 500mg Capsule -] 500 mg PO TID 7 Days #21 capsule 03/02 - AMA Did Patient Leave Against Medical Advice: No
[2017-11-24] MEDS ORDERED: METHADONE HCL 5 MG TABLET (FOR DETOX USE ONLY) PO SCH (06:00)
== END 2017-11-23 15:35 | disposition home or self-care (01) | DRG 773 ==
LOC: YASAS 11:20 → Y6N 17:35
PROVIDERS: ADMIT Surgery; ATTEND Surgery
PROC: HZ2ZZZZ Detoxification Services for Substance Abuse Treatment (ICD-10-PCS; principal; 2017-11-19)
DX: F11.23 Opioid dependence with withdrawal (principal); F10.230 Alcohol dependence with withdrawal, uncomplicated; F14.20 Cocaine dependence, uncomplicated; F16.10 Hallucinogen abuse, uncomplicated; F17.210 Nicotine dependence, cigarettes, uncomplicated; F19.24 Other psychoactive substance dependence with psychoactive substance-induced mood disorder; F19.282 Other psychoactive substance dependence with psychoactive substance-induced sleep disorder; J45.998 Other asthma; L40.9 Psoriasis, unspecified; N39.0 Urinary tract infection, site not specified; E87.6 Hypokalemia; J06.9 Acute upper respiratory infection, unspecified; K42.9 Umbilical hernia without obstruction or gangrene; I49.9 Cardiac arrhythmia, unspecified; Z88.8 Allergy status to other drugs, medicaments and biological substances; Z87.898 Personal history of other specified conditions
CPT/HCPCS: 36415; 80053; 81003; 81015; 85027; 86593; 86803; 87389; 93005; 93010

== ENCOUNTER 2018-02-19 08:56 | Inpatient (IN) | payer OTHER ==
[2018-02-19 10:21] VITALS: BMI 16.4
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
[2018-02-19] MEDS ORDERED: IBUPROFEN 400 MG TABLET (FP) PO PRN (13:04)
[2018-02-19] MEDS ORDERED: guaiFENesin/D-METHORPHAN HB 10 ML UNIT-DOSE CUPS PO PRN (13:04)
[2018-02-19] MEDS ORDERED: MAG HYDROX/AL HYDROX/SIMETH 30 ML UNIT-DOSE CUP PO PRN (13:04)
[2018-02-19] MEDS ORDERED: hydrOXYzine PAMOATE 25 MG CAPSULE (FP) PO PRN (13:04)
[2018-02-19] MEDS ORDERED: MAGNESIUM CITRATE 300 ML BOTTLE PO PRN (13:04)
[2018-02-19] MEDS ORDERED: P-EPHED 60MG/TRIPROLIDI 2.5MG TABLET PO PRN (13:04)
[2018-02-19] MEDS ORDERED: LOPERAMIDE HCL 2 MG CAPSULE PO PRN (13:04)
[2018-02-19] MEDS ORDERED: MAGNESIUM HYDROX 2400MG/30ML ORAL SUSPENSION 30 ML CUP PO PRN (13:04)
[2018-02-19] MEDS ORDERED: diazePAM 5 MG TABLET PO PRN (13:04)
[2018-02-19] MEDS ORDERED: MENTHOL/PHENOL 1 EACH UD MM PRN (13:04)
[2018-02-19] MEDS ORDERED: TRIMETHOBENZAMIDE HCL 200MG/2ML INJ IM PRN (13:08)
[2018-02-19] MEDS ORDERED: METHADONE HCL 10 MG TABLET (FOR DETOX USE ONLY) PO ONE ×2 (14:00→23:00)
[2018-02-19] MEDS ORDERED: diazePAM 5 MG TABLET PO ONE (14:00)
[2018-02-19] MEDS: diazePAM 5 MG TABLET PO SCH ×2 (14:05→22:30)
--- NOTE | 2018-02-19 15:20 | EKG ---
Test Reason : Blood Pressure : / mmHG Vent. Rate : 057 BPM Atrial Rate : 057 BPM P-R Int : 154 ms QRS Dur : 100 ms QT Int : 442 ms P-R-T Axes : 034 057 056 degrees QTc Int : 430 ms SINUS BRADYCARDIA WITH SINUS ARRHYTHMIA OTHERWISE NORMAL ECG WHEN COMPARED WITH ECG OF 19-NOV-2017 19:42, NO SIGNIFICANT CHANGE WAS FOUND Confirmed by KAMALA ATWOOD MD ([id number]) on 02/19/2018 3:19:34 PM Referred By: Confirmed By:KAMALA ATWOOD MD
[2018-02-19 17:06] LABS: URINE APPEARANCE CLOUDY; URINE BILIRUBIN NEGATIVE (<2.0 mg/dL); URINE COLOR YELLOW; URINE GLUCOSE (UA) NEGATIVE (NEGATIVE); URINE KETONE NEGATIVE (NEGATIVE); URINE LEUK ESTERASE NEGATIVE (NEGATIVE); URINE NITRITE NEGATIVE (NEGATIVE); URINE PROTEIN NEGATIVE (NEGATIVE); URINE UROBILINOGEN NEGATIVE mg/dL (0.2-1.0)
[2018-02-19] MEDS ORDERED: MELATONIN 5 MG TABLETS PO PRN (22:00)
[2018-02-19] MEDS: THIAMINE HCL 100 MG TABLET (FP) PO SCH (22:30)
[2018-02-19] MEDS: cloNIDine HCL 0.1 MG TABLET PO SCH (22:31)
[2018-02-20] MEDS: diazePAM 5 MG TABLET PO SCH (05:35)
--- NOTE | 2018-02-20 07:40 | CONSULT ---
[facility] Psychiatric Consult - Data Date of interview: 02/20/18 Admission source: [facility] Identifying data: This is a 27 years old female, single, mother of three, domiciled, with no income, with no psychiatric hospitalization history, with Alcohol, Xanax, Heroin and Nicotine dependence, PCP abuse history as well, is reporting withdrawal symptomsm and seeking detox. Last detox on 11/19/17. nicotine dependence. depression and anxiety,insomnia. did not take medication for 2 weeks. longest period of sobriety 3 years Substance Abuse History: - Smoking Cessation. Smoking history: Current every day smoker. Have you smoked in the past 12 months: Yes. Aproximately how many cigarettes per day: 20. Cigars Per Day: 0. Hx Chewing Tobacco Use: No. Initiated information on smoking cessation: Yes. 'Breaking Loose' booklet given : 02/19/18. - Substance & Tx. History. Hx Alcohol Use: Yes. Hx Substance Use : Yes. Substance Use Type: Alcohol, Cocaine, Heroin, Tranquilizers. - Substances Abused. Heroin. Route: Injection. Frequency: Daily. Amount used: 2 BUNDLES. Age of first use: 23. Date of Last Use: 02/19/18. Alcohol. Route: Oral. Frequency: Daily. Amount used: 1 PINT OF VODKA. Age of first use: 16. Date of Last Use: 02/18/18. Alprazolam (Xanax). Route: Oral. Frequency: Daily. Amount used: 2 STICKS. Age of first use: 27. Date of Last Use: 02/18/18. Cocaine. Route: Smoking. Frequency: Daily. Amount used: $50. Age of first use: 24. Date of Last Use: 02/19/18 Medical History: Weight loss history, Asthma, Psoriasis, umbilical hernia history, UTI Psychiatric History: Patient reports history of anxiety nand depression, reports no psychiatric hospitalization history, denies suicidal, homicidal history, reports taking prior to admission: Seroquel 300mg po qhs. Zoloft 100mg poqd Physical/Sexual Abuse/Trauma History: Denies Additional Comment: Seroquel 300mg po qhs. Zoloft 100mg poqd Mental Status Exam - Mental Status Exam Alert and Oriented to: Person Cognitive Function: Fair Patient Appearance: Unkempt Mood: Anxious Affect: Labile Patient Behavior: Cooperative Speech Pattern: Appropriate Voice Loudness: Normal Thought Process: Goal Oriented Thought Disorder: Being Controlled Hallucinations: Denies Suicidal Ideation: Denies Homicidal Ideation: Denies Insight/Judgement: Fair Sleep: Difficulty falling asleep Appetite: Weight loss Muscle strength/Tone: Normal Gait/Station: Normal Additional Comments: Seroquel 300mg po qhs. Zoloft 100mg poqd Psychiatric Findings - Problem List ([place] 1, 2,3) (1) Cannabis dependence Current Visit: Yes Status: Acute (2) Opioid dependence on agonist therapy Current Visit: No Status: Acute (3) URI (upper respiratory infection) Current Visit: No Status: Acute (4) UTI (urinary tract infection) Current Visit: No Status: Acute (5) Umbilical hernia Current Visit: No Status: Acute Qualifiers: (6) Weight decreased Current Visit: No Status: Acute (7) Alcohol dependence Current Visit: No Status: Chronic (8) Alcohol dependence with uncomplicated withdrawal Current Visit: No Status: Chronic (9) Asthma Current Visit: No Status: Chronic Qualifiers: (10) Cocaine dependence, uncomplicated Current Visit: No Status: Chronic (11) Drug-induced mood disorder Current Visit: No Status: Chronic (12) Encounter for monitoring Suboxone maintenance therapy Current Visit: No Status: Chronic (13) Opioid dependence with withdrawal Current Visit: No Status: Chronic (14) PCP (phencyclidine) abuse Current Visit: No Status: Chronic (15) Psoriasis Current Visit: No Status: Chronic (16) Substance induced mood disorder Current Visit: No Status: Chronic (17) Substance-induced sleep disorder Current Visit: No Status: Chronic Comment: Seroquel 300mg po qhs Zoloft 100mg poqd - Initial Treatment Plan Initial Treatment Plan: Seroquel 300mg po qhs. Zoloft 100mg poqd
[2018-02-20] MEDS ORDERED: chlordiazePOXIDE HCL 25 MG CAPSULE PO PRN (09:09)
[2018-02-20] MEDS ORDERED: METHADONE HCL 10 MG TABLET (FOR DETOX USE ONLY) PO SCH (10:00)
[2018-02-20] MEDS ORDERED: PRENATAL VITAMINS W/ FOLIC ACID TABLET (FP) PO SCH (10:00)
[2018-02-20] MEDS: cloNIDine HCL 0.1 MG TABLET PO SCH ×2 (10:26→22:18)
[2018-02-20] MEDS: SERTRALINE HCL 50 MG TABLET (FP) PO SCH (10:26)
[2018-02-20] MEDS: CYCLOBENZAPRINE HCL 10 MG TABLET (FP) PO PRN (10:26)
[2018-02-20] MEDS: chlordiazePOXIDE HCL 25 MG CAPSULE PO SCH ×3 (10:28→22:15)
[2018-02-20 10:43] LABS: HEMATOCRIT 41.4 % (32.4-45.2); MCH 30.5 pg (25.7-33.7); MCHC 33.8 g/dl (32.0-36.0); MEAN CELL VOLUME 90.4 fl (80-96); PLATELET COUNT 312 K/MM3 (134-434); RBC 4.58 M/mm3 (3.60-5.2); RDW 16.7 % (11.6-15.6); WHITE BLOOD COUNT 5.1 K/mm3 (4.0-10.0)
--- NOTE | 2018-02-20 10:47 | PN ---
[facility] CIWA - CIWA Score Nausea/Vomitin-Mild Nausea/No Vomiting Muscle Tremors: 4-Moderate,w/Arms Extend Anxiety: 3 Agitation: 3 Paroxysmal Sweats: 1-Minimal Palms Moist Orientation: 1-Uncertain about Date Tacttile Disturbances: 1-Very Mild Itch/Numbness Auditory Disturbances: 0-None Visual Disturbances: 0-None Headache: 1-Very Mild CIWA-Ar Total Score: 15 S COWS - Scale Resting Pulse: 0= [place] 80 or Below Sweatin= Chills/Flushing Restless Observation: 1= Difficult to Sit Still Pupil Size: 0= Normal to Room Light Bone or Joint Aches: 2= Severe Diffuse Aches Runny Nose/ Eye Tearin= Runny Nose/Eyes GI Upset > 30mins: 2= Nausea/Diarrhea Tremor Observation of Outstretched Hands: 1= Tremor [place], Not Seen Yawning Observation: 1= 1-2x During Session Anxiety or Irritability: 2=Irritable/Anxious Goose Flesh Skin: 0=Smooth Skin COWS Score: 12 [facility] Progress Note (SOAP) Subjective: report valium not works well with her prefer librium that last detox librium works well sweat tremor anxiety restlessness body ache joints pain Objective: 02/20/18 10:52 Vital Signs Temperature 97.9 F 02/20/18 09:27 Pulse Rate 81 02/20/18 09:27 Respiratory Rate 18 02/20/18 09:27 Blood Pressure 115/71 02/20/18 09:27 O2 Sat by Pulse Oximetry (%) Laboratory Last Values WBC 5.1 K/mm3 (4.0-10.0) 02/20/18 06:00 RBC 4.58 M/mm3 (3.60-5.2) 02/20/18 06:00 Hgb 14.0 GM/dL (10.7-15.3) 02/20/18 06:00 Hct 41.4 % (32.4-45.2) 02/20/18 06:00 MCV 90.4 fl (80-96) 02/20/18 06:00 MCH 30.5 pg (25.7-33.7) 02/20/18 06:00 MCHC 33.8 g/dl (32.0-36.0) 02/20/18 06:00 RDW 16.7 % (11.6-15.6) H 02/20/18 06:00 Plt Count 312 K/MM3 (134-434) D 02/20/18 06:00 MPV 10.0 fl (7.5-11.1) 02/20/18 06:00 Urine Color Yellow 02/19/18 15:58 Urine Appearance Cloudy 02/19/18 15:58 Urine pH 6.0 (5.0-8.0) 02/19/18 15:58 Ur Specific [place] 1.019 (1.010-1.035) 02/19/18 15:58 Urine Protein Negative (NEGATIVE) 02/19/18 15:58 Urine Glucose (UA) Negative (NEGATIVE) 02/19/18 15:58 Urine Ketones Negative (NEGATIVE) 02/19/18 15:58 Urine Blood Negative (NEGATIVE) 02/19/18 15:58 Urine Nitrite Negative (NEGATIVE) 02/19/18 15:58 Urine Bilirubin Negative (<2.0 mg/dL) 02/19/18 15:58 Urine Urobilinogen Negative mg/dL (0.2-1.0) 02/19/18 15:58 Ur Leukocyte Esterase Negative (NEGATIVE) 02/19/18 15:58 HIV 1&2 Antibody Screen Negative 02/19/18 12:14 HIV P24 Antigen Negative 02/19/18 12:14 lab noted Assessment: 02/20/18 10:52 withdrawal sx Plan: continue detox change to librium detox protocol
[2018-02-20 10:55] LABS: ALBUMIN 3.8 g/dl (3.4-5.0); ALK PHOS 93 U/L (45-117); ANION GAP 6 MMOL/L (8-16); BILIRUBIN,TOTAL 0.2 mg/dL (0.2-1); BLOOD UREA NITROGEN 11 mg/dL (7-18); CALCIUM 9.6 mg/dL (8.5-10.1); CHLORIDE 100 mmol/L (98-107); CO2 31 mmol/L (21-32); CREATININE 0.7 mg/dL (0.55-1.3); GLUCOSE,RANDOM 85 mg/dL (74-106); POTASSIUM 4.4 mmol/L (3.5-5.1); SGOT/AST 13 U/L (15-37); SGPT/ALT 14 U/L (13-61); SODIUM 136 mmol/L (136-145); TOT PROT 7.7 g/dl (6.4-8.2)
[2018-02-20] MEDS: THIAMINE HCL 100 MG TABLET (FP) PO SCH (22:15)
[2018-02-20] MEDS: QUEtiapine FUMARATE 300 MG TABLET PO SCH (22:15)
[2018-02-21] MEDS: chlordiazePOXIDE HCL 25 MG CAPSULE PO SCH ×4 (05:14→22:27)
[2018-02-21] MEDS: ACETAMINOPHEN 325 MG TABLET (FP) PO PRN (05:14)
[2018-02-21] MEDS ORDERED: diazePAM 5 MG TABLET PO SCH (10:00)
--- NOTE | 2018-02-21 10:42 | PN ---
[facility] CIWA - CIWA Score Nausea/Vomitin-No Nausea/No Vomiting Muscle Tremors: 4-Moderate,w/Arms Extend Anxiety: 3 Agitation: 4-Moderately Restless Paroxysmal Sweats: 3 Orientation: 0-Oriented Tacttile Disturbances: 0-None Auditory Disturbances: 0-None Visual Disturbances: 0-None Headache: 0-None Present CIWA-Ar Total Score: 14 S COWS - Scale Resting Pulse: 0= [place] 80 or Below Sweatin=Flushed/Facial Moisture Restless Observation: 1= Difficult to Sit Still Pupil Size: 0= Normal to Room Light Bone or Joint Aches: 0= None Runny Nose/ Eye Tearin= Runny Nose/Eyes GI Upset > 30mins: 0= None Tremor Observation of Outstretched Hands: 2= Slight Tremor Visible Yawning Observation: 1= 1-2x During Session Anxiety or Irritability: 2=Irritable/Anxious Goose Flesh Skin: 0=Smooth Skin COWS Score: 10 S Progress Note (SOAP) Subjective: shakes sweats agitation anxiety body aches interrupted sleep Objective: 02/21/18 10:41 Vital Signs Temperature 97.9 F 02/21/18 09:25 Pulse Rate 75 02/21/18 09:25 Respiratory Rate 18 02/21/18 09:25 Blood Pressure 103/51 L 02/21/18 09:25 O2 Sat by Pulse Oximetry (%) Laboratory Tests 02/19/18 02/19/18 02/20/18 12:14 15:58 06:00 WBC 5.1 RBC 4.58 Hgb 14.0 Hct 41.4 MCV 90.4 MCH 30.5 MCHC 33.8 RDW 16.7 H Plt Count 312 D MPV 10.0 Sodium Potassium Chloride Carbon Dioxide Anion Gap BUN Creatinine Creat Clearance w eGFR Random Glucose Calcium Total Bilirubin AST ALT Alkaline Phosphatase Total Protein Albumin Urine Color Yellow Urine Appearance Cloudy Urine pH 6.0 Ur Specific [place] 1.019 Urine Protein Negative Urine Glucose (UA) Negative Urine Ketones Negative Urine Blood Negative Urine Nitrite Negative Urine Bilirubin Negative Urine Urobilinogen Negative Ur Leukocyte Esterase Negative RPR Titer HIV 1&2 Antibody Screen Negative HIV P24 Antigen Negative 02/20/18 02/20/18 06:00 06:00 WBC RBC Hgb Hct MCV MCH MCHC RDW Plt Count MPV Sodium 136 Potassium 4.4 Chloride 100 Carbon Dioxide 31 Anion Gap 6 L BUN 11 Creatinine 0.7 Creat Clearance w eGFR > 60 Random Glucose 85 Calcium 9.6 Total Bilirubin 0.2 AST 13 L ALT 14 Alkaline Phosphatase 93 Total Protein 7.7 Albumin 3.8 Urine Color Urine Appearance Urine pH Ur Specific [place] Urine Protein Urine Glucose (UA) Urine Ketones Urine Blood Urine Nitrite Urine Bilirubin Urine Urobilinogen Ur Leukocyte Esterase RPR Titer Nonreactive HIV 1&2 Antibody Screen HIV P24 Antigen aaox3 ambulating no acute distress Assessment: 02/21/18 10:42 withdrawal sx Plan: continue detox increase fluids
[2018-02-21] MEDS: SERTRALINE HCL 50 MG TABLET (FP) PO SCH (10:54)
[2018-02-21] MEDS: cloNIDine HCL 0.1 MG TABLET PO SCH ×2 (10:54→22:27)
[2018-02-21] MEDS: CYCLOBENZAPRINE HCL 10 MG TABLET (FP) PO PRN ×2 (10:54→22:27)
[2018-02-21] MEDS: METHADONE HCL 5 MG TABLET (FOR DETOX USE ONLY) PO SCH (10:54)
[2018-02-21] MEDS: THIAMINE HCL 100 MG TABLET (FP) PO SCH (22:27)
[2018-02-21] MEDS: QUEtiapine FUMARATE 300 MG TABLET PO SCH (22:27)
[2018-02-22] MEDS: chlordiazePOXIDE HCL 25 MG CAPSULE PO SCH (05:57)
[2018-02-22] MEDS: METHADONE HCL 5 MG TABLET (FOR DETOX USE ONLY) PO SCH (10:09)
[2018-02-22] MEDS: SERTRALINE HCL 50 MG TABLET (FP) PO SCH (10:10)
[2018-02-22] MEDS: chlordiazePOXIDE 5 MG CAPSULE PO SCH ×3 (10:10→22:20)
[2018-02-22] MEDS: ACETAMINOPHEN 325 MG TABLET (FP) PO PRN (10:11)
--- NOTE | 2018-02-22 10:29 | PN ---
S Progress Note Note: PATIENT CONTINUES WITH DETOX REGIMEN. C/O INTERRUPTED SLEEP. Vital Signs Temperature 98.4 F 02/22/18 09:44 Pulse Rate 101 H 02/22/18 09:44 Respiratory Rate 18 02/22/18 09:44 Blood Pressure 104/57 L 02/22/18 09:44 O2 Sat by Pulse Oximetry (%) Laboratory Tests 02/19/18 02/19/18 02/20/18 12:14 15:58 06:00 WBC 5.1 RBC 4.58 Hgb 14.0 Hct 41.4 MCV 90.4 MCH 30.5 MCHC 33.8 RDW 16.7 H Plt Count 312 D MPV 10.0 Sodium Potassium Chloride Carbon Dioxide Anion Gap BUN Creatinine Creat Clearance w eGFR Random Glucose Calcium Total Bilirubin AST ALT Alkaline Phosphatase Total Protein Albumin Urine Color Yellow Urine Appearance Cloudy Urine pH 6.0 Ur Specific [place] 1.019 Urine Protein Negative Urine Glucose (UA) Negative Urine Ketones Negative Urine Blood Negative Urine Nitrite Negative Urine Bilirubin Negative Urine Urobilinogen Negative Ur Leukocyte Esterase Negative RPR Titer HIV 1&2 Antibody Screen Negative HIV P24 Antigen Negative 02/20/18 02/20/18 06:00 06:00 WBC RBC Hgb Hct MCV MCH MCHC RDW Plt Count MPV Sodium 136 Potassium 4.4 Chloride 100 Carbon Dioxide 31 Anion Gap 6 L BUN 11 Creatinine 0.7 Creat Clearance w eGFR > 60 Random Glucose 85 Calcium 9.6 Total Bilirubin 0.2 AST 13 L ALT 14 Alkaline Phosphatase 93 Total Protein 7.7 Albumin 3.8 Urine Color Urine Appearance Urine pH Ur Specific [place] Urine Protein Urine Glucose (UA) Urine Ketones Urine Blood Urine Nitrite Urine Bilirubin Urine Urobilinogen Ur Leukocyte Esterase RPR Titer Nonreactive HIV 1&2 Antibody Screen HIV P24 Antigen PE: ALERT AND ORIENTED X 3 SKIN WARM AND DRY CAR S1S2 RESP CTA BL EXT FULL ROM, NO EDEMA\ AMB AD MATTEO A/P WITHDRAWAL SX CONTINUE DETOX ORDERED ENCOURAGE ORAL FLUIDS CONTINUE TO MONITOR
[2018-02-22] MEDS: cloNIDine HCL 0.1 MG TABLET PO SCH ×2 (11:14→22:19)
[2018-02-22] MEDS: QUEtiapine FUMARATE 300 MG TABLET PO SCH (22:19)
[2018-02-22] MEDS: THIAMINE HCL 100 MG TABLET (FP) PO SCH (22:19)
[2018-02-23] MEDS: chlordiazePOXIDE 5 MG CAPSULE PO SCH (06:12)
[2018-02-23] MEDS ORDERED: diazePAM 5 MG TABLET PO SCH (10:00)
[2018-02-23] MEDS ORDERED: METHADONE HCL 10 MG TABLET (FOR DETOX USE ONLY) PO SCH (10:00)
[2018-02-23] MEDS: SERTRALINE HCL 50 MG TABLET (FP) PO SCH (10:16)
[2018-02-23] MEDS: cloNIDine HCL 0.1 MG TABLET PO SCH ×2 (10:16→22:18)
[2018-02-23] MEDS: chlordiazePOXIDE HCL 10 MG CAPSULE PO SCH ×3 (10:16→22:18)
--- NOTE | 2018-02-23 11:16 | PN ---
[facility] Progress Note (SOAP) Subjective: feeling better no tremor less sweat no body ache sleep better at night Objective: 02/23/18 11:15 Vital Signs Temperature 97.9 F 02/23/18 09:29 Pulse Rate 96 H 02/23/18 09:29 Respiratory Rate 16 02/23/18 09:29 Blood Pressure 109/67 02/23/18 09:29 O2 Sat by Pulse Oximetry (%) Laboratory Last Values WBC 5.1 K/mm3 (4.0-10.0) 02/20/18 06:00 RBC 4.58 M/mm3 (3.60-5.2) 02/20/18 06:00 Hgb 14.0 GM/dL (10.7-15.3) 02/20/18 06:00 Hct 41.4 % (32.4-45.2) 02/20/18 06:00 MCV 90.4 fl (80-96) 02/20/18 06:00 MCH 30.5 pg (25.7-33.7) 02/20/18 06:00 MCHC 33.8 g/dl (32.0-36.0) 02/20/18 06:00 RDW 16.7 % (11.6-15.6) H 02/20/18 06:00 Plt Count 312 K/MM3 (134-434) D 02/20/18 06:00 MPV 10.0 fl (7.5-11.1) 02/20/18 06:00 Sodium 136 mmol/L (136-145) 02/20/18 06:00 Potassium 4.4 mmol/L (3.5-5.1) 02/20/18 06:00 Chloride 100 mmol/L (98-107) 02/20/18 06:00 Carbon Dioxide 31 mmol/L (21-32) 02/20/18 06:00 Anion Gap 6 MMOL/L (8-16) L 02/20/18 06:00 BUN 11 mg/dL (7-18) 02/20/18 06:00 Creatinine 0.7 mg/dL (0.55-1.3) 02/20/18 06:00 Creat Clearance w eGFR > 60 (>60) 02/20/18 06:00 Random Glucose 85 mg/dL (74-106) 02/20/18 06:00 Calcium 9.6 mg/dL (8.5-10.1) 02/20/18 06:00 Total Bilirubin 0.2 mg/dL (0.2-1) 02/20/18 06:00 AST 13 U/L (15-37) L 02/20/18 06:00 ALT 14 U/L (13-61) 02/20/18 06:00 Alkaline Phosphatase 93 U/L (45-117) 02/20/18 06:00 Total Protein 7.7 g/dl (6.4-8.2) 02/20/18 06:00 Albumin 3.8 g/dl (3.4-5.0) 02/20/18 06:00 Urine Color Yellow 02/19/18 15:58 Urine Appearance Cloudy 02/19/18 15:58 Urine pH 6.0 (5.0-8.0) 02/19/18 15:58 Ur Specific [place] 1.019 (1.010-1.035) 02/19/18 15:58 Urine Protein Negative (NEGATIVE) 02/19/18 15:58 Urine Glucose (UA) Negative (NEGATIVE) 02/19/18 15:58 Urine Ketones Negative (NEGATIVE) 02/19/18 15:58 Urine Blood Negative (NEGATIVE) 02/19/18 15:58 Urine Nitrite Negative (NEGATIVE) 02/19/18 15:58 Urine Bilirubin Negative (<2.0 mg/dL) 02/19/18 15:58 Urine Urobilinogen Negative mg/dL (0.2-1.0) 02/19/18 15:58 Ur Leukocyte Esterase Negative (NEGATIVE) 02/19/18 15:58 RPR Titer Nonreactive (NONREACTIVE) 02/20/18 06:00 HIV 1&2 Antibody Screen Negative 02/19/18 12:14 HIV P24 Antigen Negative 02/19/18 12:14 lab noted Assessment: 02/23/18 11:15 mild withdrawal sx Plan: medically supervised detox
[2018-02-23] MEDS: THIAMINE HCL 100 MG TABLET (FP) PO SCH (22:18)
[2018-02-23] MEDS: QUEtiapine FUMARATE 300 MG TABLET PO SCH (22:18)
[2018-02-24] MEDS ORDERED: METHADONE HCL 5 MG TABLET (FOR DETOX USE ONLY) PO SCH (06:00)
[2018-02-24] MEDS: chlordiazePOXIDE HCL 10 MG CAPSULE PO SCH (06:03)
--- NOTE | 2018-02-24 08:13 | PN ---
Psychiatric Progress Note Vital Signs: Vital Signs Period Temp Pulse Resp BP Sys/Wesley Pulse Ox Last 24 Hr 97.2 F-98.4 F 79-96 16-20 94-109/52-68 Date of Session: 02/24/18 Chief Complaint:: My medications on sischarge HPI: Patient reports to send medications uponndischrge to [facility] Current Medications: Active Medications Generic Name Dose Route Start Last Admin Trade Name Freq PRN Reason Stop Dose Admin Acetaminophen 650 mg 02/19/18 13:04 02/22/18 10:11 Tylenol - PO 650 mg Q4H PRN Administration FEVER Al Hydroxide/Mg Hydroxide 30 ml 02/19/18 13:04 Mylanta Oral Suspension - PO Q6H PRN DYSPEPSIA Clonidine 0.1 mg 02/19/18 22:00 02/23/18 22:18 Catapres - PO 0.1 mg BID VARUN Administration Cyclobenzaprine HCl 10 mg 02/19/18 13:08 02/21/18 22:27 Flexeril - PO 10 mg TID PRN Administration MUSCLE SPASMS Eucalyptus/Menthol/Phenol/Sorbitol 1 each 02/19/18 13:04 Cepastat Lozenge - MM Q4H PRN SORE THROAT Guaifenesin 10 ml 02/19/18 13:04 Robitussin Dm - PO Q6H PRN COUGH Hydroxyzine Pamoate 25 mg 02/19/18 13:04 Vistaril - PO Q4H PRN AGITATION Ibuprofen 400 mg 02/19/18 13:04 Motrin - PO Q6H PRN PAIN LEVEL 4-6 Loperamide HCl 4 mg 02/19/18 13:04 Imodium - PO Q6H PRN DIARRHEA Magnesium Citrate 300 ml 02/19/18 13:04 Citroma - PO Q48H PRN CONSTIPATION Magnesium Hydroxide 30 ml 02/19/18 13:04 Milk Of Magnesia - PO DAILY PRN CONSTIPATION Melatonin 5 mg 02/19/18 22:00 02/23/18 22:19 Melatonin PO 5 mg HS PRN Administration INSOMNIA Pseudoephedrine/Triprolidine 1 combo 02/19/18 13:04 Actifed - PO TID PRN NASAL CONGESTION Quetiapine Fumarate 300 mg 02/20/18 22:00 02/23/18 22:18 Seroquel - PO 300 mg HS VARUN Administration Sertraline HCl 100 mg 02/20/18 10:00 02/23/18 10:16 Zoloft - PO 100 mg DAILY VARUN Administration Thiamine HCl 100 mg 02/19/18 22:00 02/23/18 22:18 Vitamin B1 - PO 100 mg HS VARUN Administration Trimethobenzamide HCl 200 mg 02/19/18 13:08 Tigan Injection - IM Q8H PRN NAUSEA AND/OR VOMITING Medication(s) Change(s): none Provider note:: Seroqquel 300mg po qhs. Zoloft 100mg pop qd. sent to [facility] Psychiatric Treatment Plan - Problem List (1) Cannabis dependence Current Visit: Yes (2) Opioid dependence on agonist therapy Current Visit: No (3) URI (upper respiratory infection) Current Visit: No (4) UTI (urinary tract infection) Current Visit: No (5) Umbilical hernia Current Visit: No Qualifiers: (6) Weight decreased Current Visit: No (7) Alcohol dependence Current Visit: No (8) Alcohol dependence with uncomplicated withdrawal Current Visit: No (9) Asthma Current Visit: No Qualifiers: (10) Cocaine dependence, uncomplicated Current Visit: No (11) Drug-induced mood disorder Current Visit: No (12) Encounter for monitoring Suboxone maintenance therapy Current Visit: No (13) Opioid dependence with withdrawal Current Visit: No (14) PCP (phencyclidine) abuse Current Visit: No (15) Psoriasis Current Visit: No (16) Substance induced mood disorder Current Visit: No (17) Substance-induced sleep disorder Current Visit: No Comment: Seroquel 300mg po qhs Zoloft 100mg poqd
--- NOTE | 2018-02-24 08:42 | DS ---
[facility] Detox Discharge Summary Admission Date: 02/19/18 Discharge Date: 02/24/18 - History Present History: Alcohol Dependence, Opioid Dependence, Sedative Dependence Additional Comments: 27 years old female admitted on 02/19/18 for alcohol benzo and opiate withdrawal sx completed detox regimen tolerated well denies withdrawal sx alert oriented x 3 no acute distress aftercare [facility] - Physical Exam Results Vital Signs: Vital Signs Temperature 97.2 F L 02/24/18 07:23 Pulse Rate 86 02/24/18 07:23 Respiratory Rate 18 02/24/18 07:23 Blood Pressure 107/52 L 02/24/18 07:23 O2 Sat by Pulse Oximetry (%) Pertinent Admission Physical Exam Findings: alcohol benzo opiate withdrawal sx Vital Signs Temperature 96.6 F L 02/24/18 09:25 Pulse Rate 84 02/24/18 09:25 Respiratory Rate 18 02/24/18 09:25 Blood Pressure 136/72 02/24/18 09:25 O2 Sat by Pulse Oximetry (%) Laboratory Last Values WBC 5.1 K/mm3 (4.0-10.0) 02/20/18 06:00 RBC 4.58 M/mm3 (3.60-5.2) 02/20/18 06:00 Hgb 14.0 GM/dL (10.7-15.3) 02/20/18 06:00 Hct 41.4 % (32.4-45.2) 02/20/18 06:00 MCV 90.4 fl (80-96) 02/20/18 06:00 MCH 30.5 pg (25.7-33.7) 02/20/18 06:00 MCHC 33.8 g/dl (32.0-36.0) 02/20/18 06:00 RDW 16.7 % (11.6-15.6) H 02/20/18 06:00 Plt Count 312 K/MM3 (134-434) D 02/20/18 06:00 MPV 10.0 fl (7.5-11.1) 02/20/18 06:00 Sodium 136 mmol/L (136-145) 02/20/18 06:00 Potassium 4.4 mmol/L (3.5-5.1) 02/20/18 06:00 Chloride 100 mmol/L (98-107) 02/20/18 06:00 Carbon Dioxide 31 mmol/L (21-32) 02/20/18 06:00 Anion Gap 6 MMOL/L (8-16) L 02/20/18 06:00 BUN 11 mg/dL (7-18) 02/20/18 06:00 Creatinine 0.7 mg/dL (0.55-1.3) 02/20/18 06:00 Creat Clearance w eGFR > 60 (>60) 02/20/18 06:00 Random Glucose 85 mg/dL (74-106) 02/20/18 06:00 Calcium 9.6 mg/dL (8.5-10.1) 02/20/18 06:00 Total Bilirubin 0.2 mg/dL (0.2-1) 02/20/18 06:00 AST 13 U/L (15-37) L 02/20/18 06:00 ALT 14 U/L (13-61) 02/20/18 06:00 Alkaline Phosphatase 93 U/L (45-117) 02/20/18 06:00 Total Protein 7.7 g/dl (6.4-8.2) 02/20/18 06:00 Albumin 3.8 g/dl (3.4-5.0) 02/20/18 06:00 Urine Color Yellow 02/19/18 15:58 Urine Appearance Cloudy 02/19/18 15:58 Urine pH 6.0 (5.0-8.0) 02/19/18 15:58 Ur Specific Mallard 1.019 (1.010-1.035) 02/19/18 15:58 Urine Protein Negative (NEGATIVE) 02/19/18 15:58 Urine Glucose (UA) Negative (NEGATIVE) 02/19/18 15:58 Urine Ketones Negative (NEGATIVE) 02/19/18 15:58 Urine Blood Negative (NEGATIVE) 02/19/18 15:58 Urine Nitrite Negative (NEGATIVE) 02/19/18 15:58 Urine Bilirubin Negative (<2.0 mg/dL) 02/19/18 15:58 Urine Urobilinogen Negative mg/dL (0.2-1.0) 02/19/18 15:58 Ur Leukocyte Esterase Negative (NEGATIVE) 02/19/18 15:58 RPR Titer Nonreactive (NONREACTIVE) 02/20/18 06:00 HIV 1&2 Antibody Screen Negative 02/19/18 12:14 HIV P24 Antigen Negative 02/19/18 12:14 lab noted - Treatment Hospital Course: Detox Protocol Followed, Detoxed Safely, Responded well, Discharged Condition Good, Rehab Referral Accepted Patient has Accepted a Rehab Referral to: [facility] - Medication Discharge Medications: Ambulatory Orders Sertraline HCl 100 mg PO DAILY #30 tablet 09/26/17 Quetiapine Fumarate [Seroquel -] 300 mg PO HS #30 tablet 02/20/18 Sertraline HCl [Zoloft] 100 mg PO DAILY #30 tablet 02/20/18 Quetiapine Fumarate [Seroquel -] 300 mg PO HS #30 tablet 02/24/18 Sertraline HCl [Zoloft -] 100 mg PO DAILY #30 tablet 02/24/18 - Diagnosis (1) Alcohol dependence with uncomplicated withdrawal Current Visit: Yes Status: Acute (2) Weight decreased Current Visit: Yes Status: Acute (3) Asthma Current Visit: Yes Status: Chronic Qualifiers: Asthma severity: mild Asthma persistence: intermittent Asthma complication type: with status asthmaticus Qualified Code(s): J45.22 - Mild intermittent asthma with status asthmaticus (4) Drug-induced mood disorder Current Visit: Yes Status: Suspected (5) Nicotine dependence Current Visit: Yes Status: Acute Qualifiers: Nicotine product type: cigarettes Substance use status: in withdrawal Qualified Code(s): F17.213 - Nicotine dependence, cigarettes, with withdrawal (6) Opioid dependence with withdrawal Current Visit: Yes Status: Acute - AMA Did Patient Leave Against Medical Advice: No
[2018-02-24 09:26] VITALS: BP 136/72; PULSE 84; TEMP 96.6
== END 2018-02-24 09:45 | disposition home or self-care (01) | DRG 773 ==
LOC: YASAS 08:56 → Y6N 13:22
PROC: HZ2ZZZZ Detoxification Services for Substance Abuse Treatment (ICD-10-PCS; principal; 2018-02-19)
DX: F11.23 Opioid dependence with withdrawal (principal); F10.230 Alcohol dependence with withdrawal, uncomplicated; F13.230 Sedative, hypnotic or anxiolytic dependence with withdrawal, uncomplicated; F12.20 Cannabis dependence, uncomplicated; F16.10 Hallucinogen abuse, uncomplicated; F17.210 Nicotine dependence, cigarettes, uncomplicated; F19.24 Other psychoactive substance dependence with psychoactive substance-induced mood disorder; F19.282 Other psychoactive substance dependence with psychoactive substance-induced sleep disorder; F51.05 Insomnia due to other mental disorder; J45.22 Mild intermittent asthma with status asthmaticus; L40.9 Psoriasis, unspecified; J06.9 Acute upper respiratory infection, unspecified; N39.0 Urinary tract infection, site not specified; K42.9 Umbilical hernia without obstruction or gangrene; R63.4 Abnormal weight loss; Z68.1 Body mass index [BMI] 19.9 or less, adult; Z51.81 Encounter for therapeutic drug level monitoring; Z59.0 Homelessness
CPT/HCPCS: 36415; 80053; 81003; 85027; 86593; 87389; 93005; 93010; J0735

== ENCOUNTER 2018-04-16 10:21 | Inpatient (IN) | payer OTHER ==
[2018-04-16 10:50] VITALS: BMI 16.7
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
[2018-04-16] MEDS ORDERED: guaiFENesin/D-METHORPHAN HB 10 ML UNIT-DOSE CUPS PO PRN (11:56)
[2018-04-16] MEDS ORDERED: MAG HYDROX/AL HYDROX/SIMETH 30 ML UNIT-DOSE CUP PO PRN (11:56)
[2018-04-16] MEDS ORDERED: MAGNESIUM CITRATE 300 ML BOTTLE PO PRN (11:56)
[2018-04-16] MEDS ORDERED: IBUPROFEN 400 MG TABLET (FP) PO PRN (11:56)
[2018-04-16] MEDS ORDERED: ACETAMINOPHEN 325 MG TABLET (FP) PO PRN (11:56)
[2018-04-16] MEDS ORDERED: P-EPHED 60MG/TRIPROLIDI 2.5MG TABLET PO PRN (11:56)
[2018-04-16] MEDS ORDERED: MAGNESIUM HYDROX 2400MG/30ML ORAL SUSPENSION 30 ML CUP PO PRN (11:56)
[2018-04-16] MEDS ORDERED: chlordiazePOXIDE HCL 25 MG CAPSULE PO PRN (11:56)
[2018-04-16] MEDS ORDERED: LOPERAMIDE HCL 2 MG CAPSULE PO PRN (11:56)
[2018-04-16] MEDS ORDERED: MENTHOL/PHENOL 1 EACH UD MM PRN (11:56)
[2018-04-16] MEDS ORDERED: METHADONE HCL 10 MG TABLET (FOR DETOX USE ONLY) PO ONE ×2 (13:00→23:00)
[2018-04-16] MEDS: chlordiazePOXIDE HCL 25 MG CAPSULE PO SCH ×2 (17:19→22:04)
[2018-04-16] MEDS: MELATONIN 5 MG TABLETS PO PRN (22:03)
[2018-04-16] MEDS: THIAMINE HCL 100 MG TABLET (FP) PO SCH (22:04)
[2018-04-17] MEDS: chlordiazePOXIDE HCL 25 MG CAPSULE PO SCH ×4 (05:39→22:07)
[2018-04-17] MEDS ORDERED: METHADONE HCL 10 MG TABLET (FOR DETOX USE ONLY) PO SCH (10:00)
[2018-04-17 10:17] LABS: HEMATOCRIT 44.1 % (32.4-45.2); HEMOGLOBIN 14.3 GM/dL (10.7-15.3); MCH 29.9 pg (25.7-33.7); MCHC 32.3 g/dl (32.0-36.0); MEAN CELL VOLUME 92.6 fl (80-96); MEAN PLT VOLUME 9.5 fl (7.5-11.1); PLATELET COUNT 237 K/MM3 (134-434); RBC 4.77 M/mm3 (3.60-5.2); RDW 14.8 % (11.6-15.6); WHITE BLOOD COUNT 5.8 K/mm3 (4.0-10.0)
[2018-04-17 10:22] LABS: ALBUMIN 3.8 g/dl (3.4-5.0); ALK PHOS 106 U/L (45-117); ANION GAP 4 MMOL/L (8-16); BILIRUBIN,TOTAL 0.2 mg/dL (0.2-1); BLOOD UREA NITROGEN 22 mg/dL (7-18); CALCIUM 9.1 mg/dL (8.5-10.1); CHLORIDE 107 mmol/L (98-107); CO2 30 mmol/L (21-32); CREATININE 0.7 mg/dL (0.55-1.3); GLUCOSE,RANDOM 71 mg/dL (74-106); POTASSIUM 4.6 mmol/L (3.5-5.1); SGOT/AST 12 U/L (15-37); SGPT/ALT 17 U/L (13-61); SODIUM 141 mmol/L (136-145); TOT PROT 7.2 g/dl (6.4-8.2)
[2018-04-17] MEDS: PRENATAL VITAMINS W/ FOLIC ACID TABLET (FP) PO SCH (10:28)
--- NOTE | 2018-04-17 12:49 | CONSULT ---
[facility] Psychiatric Consult - Data Date of interview: 04/17/17 Admission source: [facility] Identifying data: Patient is a 27 year old single female, mother of two, unemployed, homeless, and not receiving financial assistance. This is one of multiple admissions for patient. Patient admitted to for alcohol, cocaine, and opiate dependence. Substance Abuse History: Smoking Cessation. Smoking history: Current every day smoker. Have you smoked in the past 12 months: Yes. Aproximately how many cigarettes per day: 20. Cigars Per Day: 0. Hx Chewing Tobacco Use: No. Initiated information on smoking cessation: Yes. 'Breaking Loose' booklet given : 04/16/18. - Substance & Tx. History. Hx Alcohol Use: Yes. Hx Substance Use : Yes. Substance Use Type: Alcohol, Cocaine, Heroin. Hx Substance Use Treatment: Yes ([facility] 02/19/18 to02/24/18 ). - Substances Abused. Heroin. Route: Injection. Frequency: Daily. Amount used: 10 bags. Age of first use: 24. Date of Last Use: 04/16/18. Cocaine. Route: Smoking. Frequency: Daily. Amount used: $100. Age of first use: 20. Date of Last Use: 04/16/18. Alcohol-vodka/beer. Route: Oral. Frequency: Daily. Amount used: 1 1/2 pts. /1-6 pk. Age of first use: 16. Date of Last Use: 04/16/18. Suboxone. Route: SL. Frequency: 1-3 times last 30 days. Amount used: 4 mg. Age of first use: 27. Date of Last Use: 04/15/18 Medical History: Denies. Psychiatric History: Patient denies h/o psychiatric hospitalizations and suicide attempt. Most recent outpatient psychiatric care was provided last year. Patient with a history of nonadherence to psychiatric treatment. She reports diagnosis of depression and anxiety. She was recently on the detox unit in 2017. She was seen by Dr. Albright and was prescribed seroquel 300mg qhs and zoloft 100mg. Patient has not accepted psychotropic medications in approximately 3 weeks due to completing her prescription and refusing to seek outpatient psychiatric care. Patient denies h/o suicide attempt. At present , she reports feeling sad and is experiencing difficulty sleeping. Physical/Sexual Abuse/Trauma History: denies. Mental Status Exam - Mental Status Exam Alert and Oriented to: Time, Place, Person Cognitive Function: Good Patient Appearance: Well Groomed Mood: Sad Affect: Appropriate Patient Behavior: Appropriate, Cooperative Speech Pattern: Clear, Appropriate Voice Loudness: Normal Thought Process: Intact, Goal Oriented Thought Disorder: Not Present Hallucinations: Denies Suicidal Ideation: Denies Homicidal Ideation: Denies Insight/Judgement: Poor Sleep: Poorly Appetite: Fair Muscle strength/Tone: Normal Gait/Station: Normal Psychiatric Findings - Problem List ([place] 1, 2,3) (1) Alcohol dependence with uncomplicated withdrawal Current Visit: Yes Status: Acute (2) Opioid dependence with withdrawal Current Visit: Yes Status: Acute (3) Substance induced mood disorder Current Visit: Yes Status: Acute (4) Substance-induced sleep disorder Current Visit: Yes Status: Acute Comment: Seroquel 300mg po qhs Zoloft 100mg poqd (5) Cocaine dependence, uncomplicated Current Visit: Yes Status: Chronic - Initial Treatment Plan Initial Treatment Plan: Psychoeducation provided. Detoxification in progress. Will order Zoloft 50mg + Seroquel 100mg qhs. Benefits and side effects discussed. Verbal consent given.
--- NOTE | 2018-04-17 17:22 | PN ---
[facility] CIWA - CIWA Score Nausea/Vomitin-No Nausea/No Vomiting Muscle Tremors: 4-Moderate,w/Arms Extend Anxiety: 3 Agitation: 0-Normal Activity Paroxysmal Sweats: 3 Orientation: 2-Disoriented Date<2 days Tacttile Disturbances: 0-None Auditory Disturbances: 0-None Visual Disturbances: 2-Mild Sensitivity Headache: 0-None Present CIWA-Ar Total Score: 14 S COWS - Scale Resting Pulse: 1= IN 81-100 Sweatin=Flushed/Facial Moisture Restless Observation: 0= Sits Still Pupil Size: 0= Normal to Room Light Bone or Joint Aches: 0= None Runny Nose/ Eye Tearin= None GI Upset > 30mins: 0= None Tremor Observation of Outstretched Hands: 2= Slight Tremor Visible Yawning Observation: 1= 1-2x During Session Anxiety or Irritability: 2=Irritable/Anxious Goose Flesh Skin: 3=Piloerection COWS Score: 11 S Progress Note (SOAP) Subjective: Interrupted sleep, Sweating, Constipation, Tremors. Objective: PATIENT A & O X 2 (UNCERTAIN ABOUT CURRENT DAY / DATE). PATIENT OBSERVED AMBULATING ON UNIT. IN NO ACUTE DISTRESS. 04/17/18 17:21 Vital Signs Temperature 97.9 F 04/17/18 16:56 Pulse Rate 88 04/17/18 16:56 Respiratory Rate 16 04/17/18 16:56 Blood Pressure 106/64 04/17/18 16:56 O2 Sat by Pulse Oximetry (%) Laboratory Tests 04/17/18 04/17/18 04/17/18 07:00 07:00 07:00 WBC 5.8 RBC 4.77 Hgb 14.3 Hct 44.1 MCV 92.6 MCH 29.9 MCHC 32.3 RDW 14.8 D Plt Count 237 D MPV 9.5 Sodium 141 Potassium 4.6 Chloride 107 Carbon Dioxide 30 Anion Gap 4 L BUN 22 H Creatinine 0.7 Creat Clearance w eGFR > 60 Random Glucose 71 L Calcium 9.1 Total Bilirubin 0.2 AST 12 L ALT 17 Alkaline Phosphatase 106 Total Protein 7.2 Albumin 3.8 RPR Titer HIV 1&2 Antibody Screen Negative HIV P24 Antigen Negative 04/17/18 07:00 WBC RBC Hgb Hct MCV MCH MCHC RDW Plt Count MPV Sodium Potassium Chloride Carbon Dioxide Anion Gap BUN Creatinine Creat Clearance w eGFR Random Glucose Calcium Total Bilirubin AST ALT Alkaline Phosphatase Total Protein Albumin RPR Titer Nonreactive HIV 1&2 Antibody Screen HIV P24 Antigen LABS NOTED. Assessment: 04/17/18 17:21 WITHDRAWAL SYMPTOMS. Plan: CONTINUE DETOX. INCREASE DAILY PO FLUID INTAKE. PRN MOM FOR CONSTIPATION.
[2018-04-17] MEDS: hydrOXYzine PAMOATE 25 MG CAPSULE (FP) PO PRN (22:07)
[2018-04-17] MEDS: THIAMINE HCL 100 MG TABLET (FP) PO SCH (22:07)
[2018-04-17] MEDS: QUEtiapine FUMARATE 100 MG TABLET (FP) PO SCH (22:08)
[2018-04-17] MEDS: MELATONIN 5 MG TABLETS PO PRN (22:08)
[2018-04-18] MEDS: chlordiazePOXIDE HCL 25 MG CAPSULE PO SCH ×2 (05:28→10:51)
[2018-04-18] MEDS: METHADONE HCL 5 MG TABLET (FOR DETOX USE ONLY) PO SCH (10:50)
[2018-04-18] MEDS: SERTRALINE HCL 50 MG TABLET (FP) PO SCH (10:50)
[2018-04-18] MEDS: PRENATAL VITAMINS W/ FOLIC ACID TABLET (FP) PO SCH (10:50)
[2018-04-18] MEDS: hydrOXYzine PAMOATE 25 MG CAPSULE (FP) PO PRN (10:51)
[2018-04-18] MEDS: chlordiazePOXIDE 5 MG CAPSULE PO SCH ×2 (17:34→22:33)
--- NOTE | 2018-04-18 18:55 | PN ---
S CIWA - CIWA Score Nausea/Vomitin-No Nausea/No Vomiting Muscle Tremors: None Anxiety: 3 Agitation: 0-Normal Activity Paroxysmal Sweats: 3 Orientation: 0-Oriented Tacttile Disturbances: 2-Mild Itch/Numbness/Burn Auditory Disturbances: 0-None Visual Disturbances: 2-Mild Sensitivity Headache: 0-None Present CIWA-Ar Total Score: 10 BHS COWS - Scale Resting Pulse: 1= AL 81-100 Sweatin= Chills/Flushing Restless Observation: 0= Sits Still Pupil Size: 0= Normal to Room Light Bone or Joint Aches: 2= Severe Diffuse Aches Runny Nose/ Eye Tearin= Nasal Congestion GI Upset > 30mins: 0= None Tremor Observation of Outstretched Hands: 0= None Yawning Observation: 1= 1-2x During Session Anxiety or Irritability: 2=Irritable/Anxious Goose Flesh Skin: 3=Piloerection COWS Score: 11 S Progress Note (SOAP) Subjective: Body Aches, Interrupted Sleep, Sweating. Objective: PATIENT A & O X 3, OBSERVED AMBULATING ON UNIT. IN NO ACUTE DISTRESS. 04/18/18 18:54 Vital Signs Temperature 97.5 F L 04/18/18 18:42 Pulse Rate 96 H 04/18/18 18:42 Respiratory Rate 16 04/18/18 18:42 Blood Pressure 127/67 04/18/18 18:42 O2 Sat by Pulse Oximetry (%) Laboratory Tests 04/17/18 04/17/18 04/17/18 07:00 07:00 07:00 WBC 5.8 RBC 4.77 Hgb 14.3 Hct 44.1 MCV 92.6 MCH 29.9 MCHC 32.3 RDW 14.8 D Plt Count 237 D MPV 9.5 Sodium 141 Potassium 4.6 Chloride 107 Carbon Dioxide 30 Anion Gap 4 L BUN 22 H Creatinine 0.7 Creat Clearance w eGFR > 60 Random Glucose 71 L Calcium 9.1 Total Bilirubin 0.2 AST 12 L ALT 17 Alkaline Phosphatase 106 Total Protein 7.2 Albumin 3.8 RPR Titer HIV 1&2 Antibody Screen Negative HIV P24 Antigen Negative 04/17/18 07:00 WBC RBC Hgb Hct MCV MCH MCHC RDW Plt Count MPV Sodium Potassium Chloride Carbon Dioxide Anion Gap BUN Creatinine Creat Clearance w eGFR Random Glucose Calcium Total Bilirubin AST ALT Alkaline Phosphatase Total Protein Albumin RPR Titer Nonreactive HIV 1&2 Antibody Screen HIV P24 Antigen LABS NOTED. Assessment: 04/18/18 18:55 WITHDRAWAL SYMPTOMS. Plan: CONTINUE DETOX. INCREASE DAILY PO FLUID INTAKE. ENCOURAGE AMBULATION.
[2018-04-18] MEDS: QUEtiapine FUMARATE 100 MG TABLET (FP) PO SCH (22:34)
[2018-04-18] MEDS: THIAMINE HCL 100 MG TABLET (FP) PO SCH (22:34)
[2018-04-18] MEDS: CYCLOBENZAPRINE HCL 10 MG TABLET (FP) PO PRN (22:34)
[2018-04-19] MEDS: chlordiazePOXIDE 5 MG CAPSULE PO SCH ×2 (06:08→10:38)
--- NOTE | 2018-04-19 09:16 | PN ---
BHS Progress Note (SOAP) Subjective: pt states feeling OK, on detox protocol for both alcohol and opioids. O: Vital Signs - 24 hr 04/18/18 04/18/18 04/18/18 09:56 15:56 18:42 Temperature 98.1 F 98.1 F 97.5 F L Pulse Rate 100 H 76 96 H Respiratory 18 16 16 Rate Blood Pressure 121/72 94/59 L 127/67 04/19/18 04/19/18 04/19/18 00:06 00:30 03:30 Temperature 97.7 F Pulse Rate 109 H Respiratory 18 18 18 Rate Blood Pressure 102/80 04/19/18 07:10 Temperature 96.7 F L Pulse Rate 96 H Respiratory 18 Rate Blood Pressure 100/52 L Laboratory Tests 04/17/18 04/17/18 04/17/18 07:00 07:00 07:00 WBC 5.8 RBC 4.77 Hgb 14.3 Hct 44.1 MCV 92.6 MCH 29.9 MCHC 32.3 RDW 14.8 D Plt Count 237 D MPV 9.5 Sodium 141 Potassium 4.6 Chloride 107 Carbon Dioxide 30 Anion Gap 4 L BUN 22 H Creatinine 0.7 Creat Clearance w eGFR > 60 Random Glucose 71 L Calcium 9.1 Total Bilirubin 0.2 AST 12 L ALT 17 Alkaline Phosphatase 106 Total Protein 7.2 Albumin 3.8 RPR Titer HIV 1&2 Antibody Screen Negative HIV P24 Antigen Negative 04/17/18 07:00 WBC RBC Hgb Hct MCV MCH MCHC RDW Plt Count MPV Sodium Potassium Chloride Carbon Dioxide Anion Gap BUN Creatinine Creat Clearance w eGFR Random Glucose Calcium Total Bilirubin AST ALT Alkaline Phosphatase Total Protein Albumin RPR Titer Nonreactive HIV 1&2 Antibody Screen HIV P24 Antigen a/p: Continue alcohol and opioid detox protocol: pt stable, VS WNL and labs WNL
[2018-04-19] MEDS: METHADONE HCL 5 MG TABLET (FOR DETOX USE ONLY) PO SCH (10:38)
[2018-04-19] MEDS: SERTRALINE HCL 50 MG TABLET (FP) PO SCH (10:38)
[2018-04-19] MEDS: PRENATAL VITAMINS W/ FOLIC ACID TABLET (FP) PO SCH (10:38)
[2018-04-19] MEDS: CYCLOBENZAPRINE HCL 10 MG TABLET (FP) PO PRN ×2 (10:38→22:05)
[2018-04-19] MEDS: chlordiazePOXIDE HCL 10 MG CAPSULE PO SCH ×2 (18:12→22:05)
[2018-04-19] MEDS: MELATONIN 5 MG TABLETS PO PRN (22:05)
[2018-04-19] MEDS: QUEtiapine FUMARATE 100 MG TABLET (FP) PO SCH (22:05)
[2018-04-19] MEDS: THIAMINE HCL 100 MG TABLET (FP) PO SCH (22:05)
[2018-04-19] MEDS: hydrOXYzine PAMOATE 25 MG CAPSULE (FP) PO PRN (22:05)
[2018-04-20] MEDS: chlordiazePOXIDE HCL 10 MG CAPSULE PO SCH ×2 (05:36→10:21)
--- NOTE | 2018-04-20 09:40 | PN ---
BHS Progress Note (SOAP) Subjective: feeling better less body aches little tremor some sweating patient had shower, tolerate food better Objective: 04/20/18 14:45 Vital Signs Temperature 96.9 F L 04/20/18 13:48 Pulse Rate 96 H 04/20/18 13:48 Respiratory Rate 16 04/20/18 13:48 Blood Pressure 121/80 04/20/18 13:48 O2 Sat by Pulse Oximetry (%) Laboratory Last Values WBC 5.8 K/mm3 (4.0-10.0) 04/17/18 07:00 RBC 4.77 M/mm3 (3.60-5.2) 04/17/18 07:00 Hgb 14.3 GM/dL (10.7-15.3) 04/17/18 07:00 Hct 44.1 % (32.4-45.2) 04/17/18 07:00 MCV 92.6 fl (80-96) 04/17/18 07:00 MCH 29.9 pg (25.7-33.7) 04/17/18 07:00 MCHC 32.3 g/dl (32.0-36.0) 04/17/18 07:00 RDW 14.8 % (11.6-15.6) D 04/17/18 07:00 Plt Count 237 K/MM3 (134-434) D 04/17/18 07:00 MPV 9.5 fl (7.5-11.1) 04/17/18 07:00 Sodium 141 mmol/L (136-145) 04/17/18 07:00 Potassium 4.6 mmol/L (3.5-5.1) 04/17/18 07:00 Chloride 107 mmol/L (98-107) 04/17/18 07:00 Carbon Dioxide 30 mmol/L (21-32) 04/17/18 07:00 Anion Gap 4 MMOL/L (8-16) L 04/17/18 07:00 BUN 22 mg/dL (7-18) H 04/17/18 07:00 Creatinine 0.7 mg/dL (0.55-1.3) 04/17/18 07:00 Creat Clearance w eGFR > 60 (>60) 04/17/18 07:00 Random Glucose 71 mg/dL (74-106) L 04/17/18 07:00 Calcium 9.1 mg/dL (8.5-10.1) 04/17/18 07:00 Total Bilirubin 0.2 mg/dL (0.2-1) 04/17/18 07:00 AST 12 U/L (15-37) L 04/17/18 07:00 ALT 17 U/L (13-61) 04/17/18 07:00 Alkaline Phosphatase 106 U/L (45-117) 04/17/18 07:00 Total Protein 7.2 g/dl (6.4-8.2) 04/17/18 07:00 Albumin 3.8 g/dl (3.4-5.0) 04/17/18 07:00 RPR Titer Nonreactive (NONREACTIVE) 04/17/18 07:00 HIV 1&2 Antibody Screen Negative 04/17/18 07:00 HIV P24 Antigen Negative 04/17/18 07:00 lab noted Assessment: 04/20/18 14:46 mild withdrawal sx Plan: continue detox
[2018-04-20] MEDS ORDERED: METHADONE HCL 10 MG TABLET (FOR DETOX USE ONLY) PO SCH (10:00)
[2018-04-20] MEDS: SERTRALINE HCL 50 MG TABLET (FP) PO SCH (10:21)
[2018-04-20] MEDS: PRENATAL VITAMINS W/ FOLIC ACID TABLET (FP) PO SCH (10:21)
[2018-04-20] MEDS: hydrOXYzine PAMOATE 25 MG CAPSULE (FP) PO PRN ×2 (14:54→22:06)
[2018-04-20] MEDS: THIAMINE HCL 100 MG TABLET (FP) PO SCH (22:06)
[2018-04-20] MEDS: CYCLOBENZAPRINE HCL 10 MG TABLET (FP) PO PRN (22:06)
[2018-04-20] MEDS: QUEtiapine FUMARATE 100 MG TABLET (FP) PO SCH (22:06)
[2018-04-20] MEDS: MELATONIN 5 MG TABLETS PO PRN (22:06)
[2018-04-21] MEDS ORDERED: METHADONE HCL 5 MG TABLET (FOR DETOX USE ONLY) PO SCH (06:00)
[2018-04-21] MEDS: PRENATAL VITAMINS W/ FOLIC ACID TABLET (FP) PO SCH (09:33)
[2018-04-21] MEDS: SERTRALINE HCL 50 MG TABLET (FP) PO SCH (09:33)
--- NOTE | 2018-04-21 10:28 | DS ---
[facility] Detox Discharge Summary Admission Date: 04/16/18 Discharge Date: 04/21/18 - History Present History: Alcohol Dependence, Cocaine Dependence, Opioid Dependence Additional Comments: PATIENT COMPLETED DETOX WITHOUT ADVERSE EVENT. PATIENT ALERT AND ORIENTED X 3, DENIES SI/HI. MEDICALLY STABLE AND IN NAD. PATIENT ACCEPTED REFERRAL TO REHAB HERE AT [facility]. PATIENT ENCOURAGED TO COMPLETE REHAB TO PREVENT RELAPSE. ALL D/C INSTRUCTIONS GIVEN TO PATIENT BY STAFF. - Physical Exam Results Vital Signs: Vital Signs Temperature 97.9 F 04/21/18 07:43 Pulse Rate 106 H 04/21/18 07:43 Respiratory Rate 20 04/21/18 07:43 Blood Pressure 100/66 04/21/18 07:43 O2 Sat by Pulse Oximetry (%) - Treatment Hospital Course: Detox Protocol Followed, Detoxed Safely, Responded well, Discharged Condition Good, Rehab Referral Accepted Patient has Accepted a Rehab Referral to: [facility] - Medication Discharge Medications: Ambulatory Orders Sertraline HCl 100 mg PO DAILY #30 tablet 09/26/17 Quetiapine Fumarate [Seroquel -] 300 mg PO HS #30 tablet 02/24/18 - AMA Did Patient Leave Against Medical Advice: No
[2018-04-21 10:31] VITALS: BP 100/51; PULSE 82; TEMP 98.3
== END 2018-04-21 13:51 | disposition other institution (70) | DRG 773 ==
LOC: YASAS 10:21 → Y6N 12:24
PROC: HZ2ZZZZ Detoxification Services for Substance Abuse Treatment (ICD-10-PCS; principal; 2018-04-16)
DX: F11.23 Opioid dependence with withdrawal (principal); F10.230 Alcohol dependence with withdrawal, uncomplicated; F14.20 Cocaine dependence, uncomplicated; F17.223 Nicotine dependence, chewing tobacco, with withdrawal; F19.24 Other psychoactive substance dependence with psychoactive substance-induced mood disorder; F19.282 Other psychoactive substance dependence with psychoactive substance-induced sleep disorder; F41.8 Other specified anxiety disorders; F32.9 Major depressive disorder, single episode, unspecified; G47.00 Insomnia, unspecified; R63.4 Abnormal weight loss; Z68.1 Body mass index [BMI] 19.9 or less, adult; Z59.0 Homelessness
CPT/HCPCS: 36415; 80053; 85027; 86593; 87389

== ENCOUNTER 2018-04-21 14:44 | Inpatient (IN) | payer OTHER ==
[2018-04-21 15:10] VITALS: BMI 18.5
--- NOTE | 2018-04-21 15:19 | PN ---
BHS Progress Note Note: by nursing staff to order medication for patient. Seroquel 100 mg po HS ordered
[2018-04-21] MEDS ORDERED: ACETAMINOPHEN 325 MG TABLET (FP) PO PRN (15:50)
[2018-04-21] MEDS ORDERED: P-EPHED 60MG/TRIPROLIDI 2.5MG TABLET PO PRN (15:50)
[2018-04-21] MEDS ORDERED: IBUPROFEN 400 MG TABLET (FP) PO PRN (15:50)
[2018-04-21] MEDS ORDERED: guaiFENesin/D-METHORPHAN HB 10 ML UNIT-DOSE CUPS PO PRN (15:50)
[2018-04-21] MEDS ORDERED: hydrOXYzine PAMOATE 50 MG CAPSULE (FP) PO PRN (15:50)
[2018-04-21] MEDS ORDERED: LOPERAMIDE HCL 2 MG CAPSULE PO PRN (15:50)
[2018-04-21] MEDS ORDERED: MENTHOL/PHENOL 1 EACH UD MM PRN (15:50)
[2018-04-21] MEDS ORDERED: MAG HYDROX/AL HYDROX/SIMETH 30 ML UNIT-DOSE CUP PO PRN (15:50)
[2018-04-21] MEDS ORDERED: MAGNESIUM HYDROX 2400MG/30ML ORAL SUSPENSION 30 ML CUP PO PRN (15:50)
[2018-04-21] MEDS ORDERED: MAGNESIUM CITRATE 300 ML BOTTLE PO PRN (15:50)
--- NOTE | 2018-04-21 15:50 | HP ---
[facility] Rehab Assess/Revision - Admission History Admitted to Rehab from: [facility] [address] [place] - Vital signs Vital Signs: Vital Signs Period Temp Pulse Resp BP Sys/Wesley Pulse Ox Last 24 Hr 97.6 F-97.6 F 96-96 18-18 103-103/68-68 - Findings Detox History & Physical reviewed: Yes Concur with findings: Yes Inpatient Rehab Admission - Initial Determination Are CD services needed?: Yes Free of communicable disease: Yes Not in need of hospitalization: Yes - Rehab Admission Criteria Previous failed treatment: Yes Poor recovery environment: Yes Comorbidities: Yes Lacks judgement: No Patient is meeting Inpatient Rehab admission criteria:: Yes
[2018-04-21] MEDS: CYCLOBENZAPRINE HCL 5 MG TABLET PO SCH (21:10)
[2018-04-21] MEDS ORDERED: THIAMINE HCL 100 MG TABLET (FP) PO SCH (22:00)
[2018-04-21] MEDS ORDERED: MELATONIN 5 MG TABLETS PO PRN (22:00)
[2018-04-21] MEDS ORDERED: QUEtiapine FUMARATE 100 MG TABLET (FP) PO SCH (22:00)
[2018-04-22] MEDS: CYCLOBENZAPRINE HCL 5 MG TABLET PO SCH (06:30)
[2018-04-22 07:03] VITALS: BP 102/68; PULSE 108; TEMP 97.8
[2018-04-22] MEDS ORDERED: PRENATAL VITAMINS W/ FOLIC ACID TABLET (FP) PO SCH (10:00)
--- NOTE | 2018-04-22 13:54 | HP ---
Psychiatrist Admission - Data Date of interview: 04/22/18 Admission source: Transfer from [address] [place] [address]. Identifying data: Admission to [address] for this 27 y/o female who completed detoxification treatment at [address] [place] [address] for heroin, cocaine and alcohol dependence. Patient is single, a mother of two, domiciled (lives with sister), unemployed and deprived of income. Medical History: Patient denies medical problems. Psychiatric History: No reported history of psychiatric hospitalizations. Patient states that she has been diagnosed with MDD and Anxiety Disorder in the past. Used to be on sertraline and quetiapine. Ms Izaguirre reports sub-optimal adherence to medications and psychiatric OPD care. She mentions brief follow-up at the [facility] (dropped out of the program six months ago). A a previous admission to [facility], the patient was prescribed seroquel only to stop taking the medication after discharge from the institution (self- report). Patient denies history of suicide attempts. Physical/Sexual Abuse/Trauma History: Patient denies. Additional Comment: Smoking history: Current every day smoker. Have you smoked in the past 12 months: Yes. Aproximately how many cigarettes per day: 20. Cigars Per Day: 0. Hx Chewing Tobacco Use: No. Initiated information on smoking cessation: Yes. 'Breaking Loose' booklet given: 04/16/18. - Substance & Tx. History. Hx Alcohol Use: Yes. Hx Substance Use: Yes. Substance Use Type : Alcohol, Cocaine, Heroin. Hx Substance Use Treatment: Yes ([facility] 02/19/18 to ). - Substances Abused. Heroin. Route: Injection. Frequency: Daily. Amount used: 10 bags. Age of first use: 24. Date of Last Use: . Cocaine. Route: Smoking. Frequency: Daily. Amount used: $100. Age of first use: 20. Date of Last Use: 04/16/18. Alcohol-vodka/beer. Route: Oral. Frequency: Daily. Amount used: 1 1/2 pts./1-6 pk. Age of first use: 16. Date of Last Use: 04/16/18. Suboxone. Route: SL. Frequency: 1-3 times last 30 days. Amount used: 4 mg. Age of first use: 27. Date of Last Use : 04/15/18. Urine Drug Screen Results: NABEEL-Cocaine, OPI-Opiates, BAR- Barbiturates, BZO-Benzodiazepines, FEN-Fentanyl. Noted. Vital Signs: Vital Signs - 24 hr 04/21/18 04/21/18 04/22/18 15:05 15:09 07:00 Temperature 97.6 F 97.6 F 97.8 F Pulse Rate 96 H 96 H 108 H Respiratory 18 18 16 Rate Blood Pressure 103/68 103/68 102/68 Allergies/Adverse Reactions: Allergies Allergy/AdvReac Type Severity Reaction Status Date / Time No Known Drug Allergies Allergy Unknown Verified 04/16/18 12:56 NKDA Allergy Unknown Uncoded 04/16/18 12:56 Mental Status Exam - Mental Status Exam Alert and Oriented to: Time, Place, Person Cognitive Function: Good Patient Appearance: Well Groomed (fashionably attired) Mood: Hopeful, Euthymic Affect: Appropriate, Normal Range Patient Behavior: Appropriate, Cooperative Speech Pattern: Clear Voice Loudness: Normal Thought Process: Intact, Goal Oriented Thought Disorder: Not Present Hallucinations: Denies Suicidal Ideation: Denies Homicidal Ideation: Denies Insight/Judgement: Fair Sleep: Well Appetite: Good Muscle strength/Tone: Normal (no complaint of weakness or stiffness) Gait/Station: Normal Psychiatric Findings - Problem List ([place] 1, 2,3) (1) Alcohol dependence Status: Chronic (2) Cocaine dependence Status: Chronic (3) Opioid dependence Status: Chronic (4) Nicotine dependence Status: Chronic (5) Substance induced mood disorder Status: Chronic - Initial Treatment Plan Initial Treatment Plan: Records at [facility] are revisited. Patient is evaluated for mental status in response to her request for immediate discharge. " I made a mistake. This place is not for me. I am not ready for rehab. I prefer to go home, back to my family ". Ms Izaguirre is encouraged to stay a few days but she refuses to reconsider. She states that she can depend on her sister for temporary housing. Declines prescriptions. Patient is psychiatrically stable.
== END 2018-04-22 14:26 | disposition left against medical advice (07) | DRG 770 ==
LOC: YASAS 14:44 → Y3E 14:45
PROVIDERS: ADMIT Psychiatry & Neurology Psychiatry; ATTEND Psychiatry & Neurology Psychiatry
PROC: HZ42ZZZ Group Counseling for Substance Abuse Treatment, Cognitive-Behavioral (ICD-10-PCS; principal; 2018-04-21)
DX: F11.20 Opioid dependence, uncomplicated (principal); F10.20 Alcohol dependence, uncomplicated; F14.20 Cocaine dependence, uncomplicated; F17.210 Nicotine dependence, cigarettes, uncomplicated; F19.24 Other psychoactive substance dependence with psychoactive substance-induced mood disorder; Z59.0 Homelessness

== ENCOUNTER 2018-07-10 08:30 | Inpatient (IN) | payer OTHER ==
[2018-07-10 08:52] VITALS: BMI 16.2
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
[2018-07-10] MEDS ORDERED: ACETAMINOPHEN 325 MG TABLET (FP) PO PRN ×2 (10:03)
[2018-07-10] MEDS ORDERED: NICOTINE POLACRILEX 2 MG GUM BUC PRN (10:03)
[2018-07-10] MEDS ORDERED: MENTHOL/PHENOL 1 EACH UD MM PRN (10:03)
[2018-07-10] MEDS ORDERED: MAG HYDROX/AL HYDROX/SIMETH 30 ML UNIT-DOSE CUP PO PRN (10:03)
[2018-07-10] MEDS ORDERED: MELATONIN 5 MG TABLETS PO PRN (10:03)
[2018-07-10] MEDS ORDERED: MAGNESIUM HYDROX 2400MG/30ML ORAL SUSPENSION 30 ML CUP PO PRN (10:03)
[2018-07-10] MEDS ORDERED: cloNIDine HCL 0.1 MG TABLET PO PRN ×2 (10:03→18:15)
[2018-07-10] MEDS ORDERED: DICYCLOMINE HCL 10 MG CAPSULE PO PRN (10:03)
[2018-07-10] MEDS ORDERED: hydrOXYzine PAMOATE 25 MG CAPSULE (FP) PO PRN ×2 (10:03→18:16)
[2018-07-10] MEDS ORDERED: MAGNESIUM CITRATE 300 ML BOTTLE PO PRN (10:03)
[2018-07-10] MEDS ORDERED: BISMUTH SUBSALICYLATE 262 MG/15 ML BTL PO PRN (10:03)
[2018-07-10] MEDS ORDERED: IBUPROFEN 400 MG TABLET (FP) PO PRN (10:03)
[2018-07-10] MEDS ORDERED: chlordiazePOXIDE HCL 25 MG CAPSULE PO PRN (14:25)
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
[2018-07-10] MEDS: chlordiazePOXIDE HCL 25 MG CAPSULE PO SCH ×2 (17:31→23:02)
--- NOTE | 2018-07-10 18:18 | PN ---
[facility] Progress Note Note: Called to see pt who was admitted today in opioid withdrawal. Pt did not receive a STAT dose on arriving to the unit- will give 20mg now and pt to continue with detox protocol with an romie dose.
[2018-07-10] MEDS ORDERED: METHADONE HCL 10 MG TABLET PO ONE (18:30)
[2018-07-10] MEDS: QUEtiapine FUMARATE 50 MG TABLET PO SCH (22:40)
[2018-07-10] MEDS ORDERED: METHADONE HCL 10 MG TABLET (FOR DETOX USE ONLY) PO ONE (23:00)
[2018-07-10] MEDS: THIAMINE HCL 100 MG TABLET (FP) PO SCH (23:35)
[2018-07-11] MEDS: chlordiazePOXIDE HCL 25 MG CAPSULE PO SCH ×4 (05:46→22:43)
[2018-07-11] MEDS ORDERED: METHADONE HCL 10 MG TABLET (FOR DETOX USE ONLY) PO ONE (10:00)
[2018-07-11] MEDS: PRENATAL VITAMINS W/ FOLIC ACID TABLET (FP) PO SCH (10:07)
--- NOTE | 2018-07-11 10:20 | EKG ---
Test Reason : Blood Pressure : / mmHG Vent. Rate : 076 BPM Atrial Rate : 076 BPM P-R Int : 162 ms QRS Dur : 094 ms QT Int : 394 ms P-R-T Axes : 046 069 067 degrees QTc Int : 443 ms NORMAL SINUS RHYTHM NORMAL ECG WHEN COMPARED WITH ECG OF 19-FEB-2018 14:34, T WAVE INVERSION NO LONGER EVIDENT IN ANTERIOR LEADS Confirmed by PHILIPP COTTER MD ([id number]) on 07/11/2018 10:20:42 AM Referred By: Confirmed By:PHILIPP COTTER MD
[2018-07-11 10:34] LABS: ALBUMIN 3.8 g/dl (3.4-5.0); ALK PHOS 92 U/L (45-117); ANION GAP 6 MMOL/L (8-16); BILIRUBIN,TOTAL 0.4 mg/dL (0.2-1); BLOOD UREA NITROGEN 16 mg/dL (7-18); CALCIUM 9.2 mg/dL (8.5-10.1); CHLORIDE 104 mmol/L (98-107); CO2 30 mmol/L (21-32); CREATININE 0.9 mg/dL (0.55-1.3); GLUCOSE,RANDOM 83 mg/dL (74-106); SGOT/AST 25 U/L (15-37); SGPT/ALT 29 U/L (13-61); SODIUM 140 mmol/L (136-145); TOT PROT 7.4 g/dl (6.4-8.2)
[2018-07-11 10:40] LABS: HEMATOCRIT 42.2 % (32.4-45.2); HEMOGLOBIN 13.8 GM/dL (10.7-15.3); MCH 29.2 pg (25.7-33.7); MCHC 32.6 g/dl (32.0-36.0); MEAN CELL VOLUME 89.6 fl (80-96); MEAN PLT VOLUME 9.3 fl (7.5-11.1); PLATELET COUNT 296 K/MM3 (134-434); RBC 4.71 M/mm3 (3.60-5.2); RDW 14.3 % (11.6-15.6); WHITE BLOOD COUNT 8.6 K/mm3 (4.0-10.0)
--- NOTE | 2018-07-11 12:41 | PN ---
[facility] CIWA - CIWA Score Nausea/Vomitin-No Nausea/No Vomiting Muscle Tremors: 3 Anxiety: 3 Agitation: 3 Paroxysmal Sweats: 3 Orientation: 0-Oriented Tacttile Disturbances: 0-None Auditory Disturbances: 0-None Visual Disturbances: 0-None Headache: 0-None Present CIWA-Ar Total Score: 12 BHS COWS - Scale Resting Pulse: 1= DE 81-100 Sweatin=Flushed/Facial Moisture Restless Observation: 1= Difficult to Sit Still Pupil Size: 0= Normal to Room Light Bone or Joint Aches: 2= Severe Diffuse Aches Runny Nose/ Eye Tearin= Nasal Congestion GI Upset > 30mins: 0= None Tremor Observation of Outstretched Hands: 2= Slight Tremor Visible Yawning Observation: 1= 1-2x During Session Anxiety or Irritability: 2=Irritable/Anxious Goose Flesh Skin: 0=Smooth Skin COWS Score: 12 [facility] Progress Note (SOAP) Subjective: low back pain sweats chills shakes interrupted sleep body aches Objective: 07/11/18 12:40 Vital Signs Temperature 96.6 F L 07/11/18 10:10 Pulse Rate 89 07/11/18 10:10 Respiratory Rate 16 07/11/18 10:10 Blood Pressure 114/66 07/11/18 10:10 O2 Sat by Pulse Oximetry (%) Laboratory Tests 07/11/18 07/11/18 07/11/18 06:00 06:00 06:00 WBC 8.6 RBC 4.71 Hgb 13.8 Hct 42.2 MCV 89.6 MCH 29.2 MCHC 32.6 RDW 14.3 Plt Count 296 D MPV 9.3 Sodium 140 Potassium 4.0 Chloride 104 Carbon Dioxide 30 Anion Gap 6 L BUN 16 Creatinine 0.9 Creat Clearance w eGFR 74.56 Random Glucose 83 Calcium 9.2 Total Bilirubin 0.4 AST 25 ALT 29 Alkaline Phosphatase 92 Total Protein 7.4 Albumin 3.8 RPR Titer Nonreactive aaox3 ambulating no acute distress Assessment: 07/11/18 12:40 withdrawal sx Plan: continue detox increase fluids lidocaine patch naproxyn bid
[2018-07-11] MEDS ORDERED: LIDOCAINE 5% TOPICAL PATCH TP ONE (12:42)
[2018-07-11] MEDS: METHOCARBAMOL 500 MG TABLET PO PRN (17:29)
[2018-07-11] MEDS: QUEtiapine FUMARATE 50 MG TABLET PO SCH (22:43)
[2018-07-11] MEDS: THIAMINE HCL 100 MG TABLET (FP) PO SCH (22:44)
[2018-07-11] MEDS: LIDOCAINE PATCH REMOVAL MC SCH (22:44)
[2018-07-12] MEDS: chlordiazePOXIDE HCL 25 MG CAPSULE PO SCH ×2 (05:34→10:28)
[2018-07-12] MEDS: METHOCARBAMOL 500 MG TABLET PO PRN ×2 (05:35→22:26)
[2018-07-12] MEDS ORDERED: METHADONE HCL 10 MG TABLET (FOR DETOX USE ONLY) PO ONE (10:00)
[2018-07-12] MEDS: PRENATAL VITAMINS W/ FOLIC ACID TABLET (FP) PO SCH (10:28)
[2018-07-12] MEDS: LIDOCAINE 5% TOPICAL PATCH TP SCH (10:29)
--- NOTE | 2018-07-12 14:31 | PN ---
S CIWA - CIWA Score Nausea/Vomitin Muscle Tremors: 2 Anxiety: 2 Agitation: 2 Paroxysmal Sweats: 2 Orientation: 0-Oriented Tacttile Disturbances: 0-None Auditory Disturbances: 0-None Visual Disturbances: 0-None Headache: 2-Mild CIWA-Ar Total Score: 12 S Progress Note (SOAP) Subjective: Back pain, sweats and nausea Objective: 07/12/18 14:31 Vital Signs 07/12/18 07/12/18 08:33 09:46 Temperature 96.8 F L 96.6 F L Pulse Rate 108 H 107 H Respiratory 20 16 Rate Blood Pressure 94/66 122/64 Laboratory Last Values WBC 8.6 K/mm3 (4.0-10.0) 07/11/18 06:00 RBC 4.71 M/mm3 (3.60-5.2) 07/11/18 06:00 Hgb 13.8 GM/dL (10.7-15.3) 07/11/18 06:00 Hct 42.2 % (32.4-45.2) 07/11/18 06:00 MCV 89.6 fl (80-96) 07/11/18 06:00 MCH 29.2 pg (25.7-33.7) 07/11/18 06:00 MCHC 32.6 g/dl (32.0-36.0) 07/11/18 06:00 RDW 14.3 % (11.6-15.6) 07/11/18 06:00 Plt Count 296 K/MM3 (134-434) D 07/11/18 06:00 MPV 9.3 fl (7.5-11.1) 07/11/18 06:00 Sodium 140 mmol/L (136-145) 07/11/18 06:00 Potassium 4.0 mmol/L (3.5-5.1) 07/11/18 06:00 Chloride 104 mmol/L (98-107) 07/11/18 06:00 Carbon Dioxide 30 mmol/L (21-32) 07/11/18 06:00 Anion Gap 6 MMOL/L (8-16) L 07/11/18 06:00 BUN 16 mg/dL (7-18) 07/11/18 06:00 Creatinine 0.9 mg/dL (0.55-1.3) 07/11/18 06:00 Creat Clearance w eGFR 74.56 (>60) 07/11/18 06:00 Random Glucose 83 mg/dL (74-106) 07/11/18 06:00 Calcium 9.2 mg/dL (8.5-10.1) 07/11/18 06:00 Total Bilirubin 0.4 mg/dL (0.2-1) 07/11/18 06:00 AST 25 U/L (15-37) 07/11/18 06:00 ALT 29 U/L (13-61) 07/11/18 06:00 Alkaline Phosphatase 92 U/L (45-117) 07/11/18 06:00 Total Protein 7.4 g/dl (6.4-8.2) 07/11/18 06:00 Albumin 3.8 g/dl (3.4-5.0) 07/11/18 06:00 RPR Titer Nonreactive (NONREACTIVE) 07/11/18 06:00 Labs noted Assessment: 07/12/18 14:31 Withdrawal sx Plan: Continue detox
[2018-07-12] MEDS ORDERED: chlordiazePOXIDE HCL 10 MG CAPSULE PO PRN (17:00)
[2018-07-12] MEDS: chlordiazePOXIDE HCL 10 MG CAPSULE PO SCH ×2 (17:30→22:26)
[2018-07-12] MEDS: THIAMINE HCL 100 MG TABLET (FP) PO SCH (22:25)
[2018-07-12] MEDS: QUEtiapine FUMARATE 50 MG TABLET PO SCH (22:26)
[2018-07-12] MEDS: LIDOCAINE PATCH REMOVAL MC SCH (22:26)
[2018-07-13] MEDS: chlordiazePOXIDE HCL 10 MG CAPSULE PO SCH ×3 (05:40→17:38)
[2018-07-13] MEDS ORDERED: METHADONE HCL 10 MG TABLET (FOR DETOX USE ONLY) PO ONE (10:00)
[2018-07-13] MEDS: PRENATAL VITAMINS W/ FOLIC ACID TABLET (FP) PO SCH (10:23)
[2018-07-13] MEDS: LIDOCAINE 5% TOPICAL PATCH TP SCH (10:25)
--- NOTE | 2018-07-13 13:15 | PN ---
[facility] Progress Note (SOAP) Subjective: sweats feeling much better interrupted sleep Objective: 07/13/18 13:14 Vital Signs Temperature 97.3 F L 07/13/18 10:02 Pulse Rate 98 H 07/13/18 10:02 Respiratory Rate 18 07/13/18 10:02 Blood Pressure 114/71 07/13/18 10:02 O2 Sat by Pulse Oximetry (%) Laboratory Tests 07/11/18 07/11/18 07/11/18 06:00 06:00 06:00 WBC 8.6 RBC 4.71 Hgb 13.8 Hct 42.2 MCV 89.6 MCH 29.2 MCHC 32.6 RDW 14.3 Plt Count 296 D MPV 9.3 Sodium 140 Potassium 4.0 Chloride 104 Carbon Dioxide 30 Anion Gap 6 L BUN 16 Creatinine 0.9 Creat Clearance w eGFR 74.56 Random Glucose 83 Calcium 9.2 Total Bilirubin 0.4 AST 25 ALT 29 Alkaline Phosphatase 92 Total Protein 7.4 Albumin 3.8 RPR Titer Nonreactive aaox3 ambulating no acute distress Assessment: 07/13/18 13:15 mild withdrawal sx Plan: continue detox increase fluids d/c in am
[2018-07-13] MEDS: QUEtiapine FUMARATE 50 MG TABLET PO SCH (22:28)
[2018-07-13] MEDS: THIAMINE HCL 100 MG TABLET (FP) PO SCH (22:29)
[2018-07-13] MEDS: LIDOCAINE PATCH REMOVAL MC SCH (22:29)
[2018-07-14] MEDS ORDERED: METHADONE HCL 5 MG TABLET (FOR DETOX USE ONLY) PO ONE (06:00)
[2018-07-14] MEDS: chlordiazePOXIDE HCL 10 MG CAPSULE PO SCH (06:06)
[2018-07-14 08:58] VITALS: BP 101/57; PULSE 101; TEMP 97.5
--- NOTE | 2018-07-14 09:10 | DS ---
[facility] Detox Discharge Summary Admission Date: 07/10/18 Discharge Date: 07/14/18 - History Present History: Alcohol Dependence, Cannabis Dependence, Cocaine Dependence, Opioid Dependence, Pcp Dependence - Physical Exam Results Vital Signs: Vital Signs Temperature 97.5 F L 07/14/18 08:57 Pulse Rate 101 H 07/14/18 08:57 Respiratory Rate 18 07/14/18 08:57 Blood Pressure 101/57 L 07/14/18 08:57 O2 Sat by Pulse Oximetry (%) - Treatment Hospital Course: Detox Protocol Followed, Detoxed Safely, Responded well, Discharged Condition Good, Rehab Referral Accepted - Medication Discharge Medications: Ambulatory Orders Quetiapine Fumarate [Seroquel -] 300 mg PO HS #30 tablet 02/24/18 - Diagnosis (1) Alcohol dependence with uncomplicated withdrawal Current Visit: Yes Status: Chronic (2) Opioid dependence with withdrawal Current Visit: Yes Status: Chronic (3) Substance-induced sleep disorder Current Visit: Yes Status: Acute (4) Cocaine dependence Current Visit: Yes Status: Chronic Qualifiers: Substance use status: uncomplicated Qualified Code(s): F14.20 - Cocaine dependence, uncomplicated (5) Nicotine dependence Current Visit: Yes Status: Chronic Qualifiers: Nicotine product type: cigarettes Substance use status: uncomplicated Qualified Code(s): F17.210 - Nicotine dependence, cigarettes, uncomplicated (6) Substance induced mood disorder Current Visit: Yes Status: Chronic (7) Anxiety and depression Current Visit: No Status: Acute (8) Cannabis dependence Current Visit: Yes Status: Chronic (9) IV drug user Current Visit: Yes Status: Chronic (10) Insomnia Current Visit: Yes Status: Acute Qualifiers: Insomnia type: unspecified Qualified Code(s): G47.00 - Insomnia, unspecified (11) Insomnia secondary to depression with anxiety Current Visit: No Status: Acute (12) Umbilical hernia Current Visit: No Status: Acute Qualifiers: (13) Weight loss Current Visit: No Status: Acute (14) Asthma Current Visit: Yes Status: Chronic Qualifiers: Asthma severity: mild Asthma persistence: intermittent Asthma complication type: with status asthmaticus Qualified Code(s): J45.22 - Mild intermittent asthma with status asthmaticus (15) Cocaine dependence, uncomplicated Current Visit: Yes Status: Chronic (16) Encounter for monitoring Suboxone maintenance therapy Current Visit: Yes Status: Chronic (17) PCP (phencyclidine) abuse Current Visit: Yes Status: Chronic (18) Depression (emotion) Current Visit: No Status: Suspected Qualifiers: Depression Type: dysthymia Qualified Code(s): F34.1 - Dysthymic disorder (19) Drug-induced mood disorder Current Visit: No Status: Suspected - AMA Did Patient Leave Against Medical Advice: No (referred to outpatient rehab)
== END 2018-07-14 09:15 | disposition home or self-care (01) | DRG 773 ==
LOC: YASAS 08:30 → Y6N 12:21
PROVIDERS: ADMIT Surgery; ATTEND Surgery
PROC: HZ2ZZZZ Detoxification Services for Substance Abuse Treatment (ICD-10-PCS; principal; 2018-07-10)
DX: F11.23 Opioid dependence with withdrawal (principal); F10.230 Alcohol dependence with withdrawal, uncomplicated; F14.20 Cocaine dependence, uncomplicated; F12.20 Cannabis dependence, uncomplicated; F16.10 Hallucinogen abuse, uncomplicated; F17.210 Nicotine dependence, cigarettes, uncomplicated; F19.24 Other psychoactive substance dependence with psychoactive substance-induced mood disorder; F19.282 Other psychoactive substance dependence with psychoactive substance-induced sleep disorder; F32.9 Major depressive disorder, single episode, unspecified; F34.1 Dysthymic disorder; F41.9 Anxiety disorder, unspecified; G47.00 Insomnia, unspecified; J45.22 Mild intermittent asthma with status asthmaticus; R00.0 Tachycardia, unspecified; Z59.0 Homelessness
CPT/HCPCS: 36415; 80053; 85027; 86593; 93005; 93010; J0735

== ENCOUNTER 2018-08-14 08:04 | Inpatient (IN) | payer SELFPAY ==
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
[2018-08-14] MEDS ORDERED: MAGNESIUM CITRATE 300 ML BOTTLE PO PRN (09:19)
[2018-08-14] MEDS ORDERED: BISMUTH SUBSALICYLATE 262 MG/15 ML BTL PO PRN (09:19)
[2018-08-14] MEDS ORDERED: MAGNESIUM HYDROX 2400MG/30ML ORAL SUSPENSION 30 ML CUP PO PRN (09:19)
[2018-08-14] MEDS ORDERED: MENTHOL/PHENOL 1 EACH UD MM PRN (09:19)
[2018-08-14] MEDS ORDERED: MAG HYDROX/AL HYDROX/SIMETH 30 ML UNIT-DOSE CUP PO PRN (09:19)
[2018-08-14] MEDS ORDERED: cloNIDine HCL 0.1 MG TABLET PO PRN (09:19)
[2018-08-14] MEDS ORDERED: ACETAMINOPHEN 325 MG TABLET (FP) PO PRN ×2 (09:19)
[2018-08-14] MEDS ORDERED: chlordiazePOXIDE HCL 25 MG CAPSULE PO PRN (09:31)
[2018-08-14] MEDS ORDERED: METHADONE HCL 10 MG TABLET (FOR DETOX USE ONLY) PO ONE ×2 (09:45→23:00)
[2018-08-14] MEDS: chlordiazePOXIDE HCL 25 MG CAPSULE PO SCH ×3 (10:11→22:15)
[2018-08-14] MEDS: PRENATAL VITAMINS W/ FOLIC ACID TABLET (FP) PO SCH (10:12)
[2018-08-14] MEDS: FLUOCINONIDE 0.05% CREAM (60 GM TUBE) TP SCH ×2 (11:03→22:15)
[2018-08-14 15:18] LABS: HEMOGLOBIN 11.9 GM/dL (10.7-15.3); MCH 29.4 pg (25.7-33.7); MEAN CELL VOLUME 89.1 fl (80-96); MEAN PLT VOLUME 8.8 fl (7.5-11.1); PLATELET COUNT 252 K/MM3 (134-434); RBC 4.04 M/mm3 (3.60-5.2); RDW 15.4 % (11.6-15.6); WHITE BLOOD COUNT 6.1 K/mm3 (4.0-10.0)
[2018-08-14 15:27] LABS: ALBUMIN 3.7 g/dl (3.4-5.0); ALK PHOS 109 U/L (45-117); ANION GAP 6 MMOL/L (8-16); BILIRUBIN,TOTAL 0.2 mg/dL (0.2-1); BLOOD UREA NITROGEN 16 mg/dL (7-18); CALCIUM 9.4 mg/dL (8.5-10.1); CHLORIDE 104 mmol/L (98-107); CO2 29 mmol/L (21-32); CREATININE 0.6 mg/dL (0.55-1.3); GLUCOSE,RANDOM 79 mg/dL (74-106); POTASSIUM 3.8 mmol/L (3.5-5.1); SGOT/AST 157 U/L (15-37); SGPT/ALT 306 U/L (13-61); SODIUM 138 mmol/L (136-145); TOT PROT 7.3 g/dl (6.4-8.2)
[2018-08-14 15:43] LABS: EPI CELLS 3.3 /HPF (0-5/HPF); URINE APPEARANCE CLEAR; URINE BACTERIA 52.7 /hpf (NEGATIVE); URINE BILIRUBIN NEGATIVE (NEGATIVE); URINE CASTS 13 /lpf (0-8); URINE COLOR YELLOW; URINE GLUCOSE (UA) NEGATIVE (NEGATIVE); URINE KETONE NEGATIVE (NEGATIVE); URINE LEUK ESTERASE TRACE (NEGATIVE); URINE NITRITE NEGATIVE (NEGATIVE); URINE PROTEIN NEGATIVE (NEGATIVE); URINE WBC 30 /hpf (0-5)
--- NOTE | 2018-08-14 18:22 | PN ---
S Progress Note Note: Psychiatric nurse practitioner note: Water Maintenance Supervisor attempted to see patient for psychiatric consultation but patient refused. Stated to film writer, "not right now, maybe tomorrow."
[2018-08-14] MEDS: THIAMINE HCL 100 MG TABLET (FP) PO SCH (22:15)
[2018-08-14] MEDS: MELATONIN 5 MG TABLETS PO PRN (22:15)
[2018-08-14] MEDS: METHOCARBAMOL 500 MG TABLET PO PRN (22:18)
[2018-08-15] MEDS: METHOCARBAMOL 500 MG TABLET PO PRN ×2 (04:32→18:38)
[2018-08-15] MEDS: chlordiazePOXIDE HCL 25 MG CAPSULE PO SCH (04:32)
[2018-08-15] MEDS ORDERED: METHADONE HCL 10 MG TABLET (FOR DETOX USE ONLY) PO ONE (10:00)
[2018-08-15] MEDS: PRENATAL VITAMINS W/ FOLIC ACID TABLET (FP) PO SCH (10:13)
[2018-08-15] MEDS: FLUOCINONIDE 0.05% CREAM (60 GM TUBE) TP SCH ×2 (10:14→22:31)
[2018-08-15] MEDS ORDERED: chlordiazePOXIDE HCL 25 MG CAPSULE PO SCH (11:00)
--- NOTE | 2018-08-15 13:39 | PN ---
S Progress Note Note: Patient was approached at bedside. Told commercial underwriter that she cannot get out of bed to talk to him
[2018-08-15] MEDS ORDERED: LORazepam 1 MG TABLET PO PRN (16:59)
--- NOTE | 2018-08-15 17:01 | PN ---
[facility] CIWA - CIWA Score Nausea/Vomitin-No Nausea/No Vomiting Muscle Tremors: None Anxiety: 4-Mod. Anxious/Guarded Agitation: 1-Slight > Activity Paroxysmal Sweats: 3 Orientation: 0-Oriented Tacttile Disturbances: 0-None Auditory Disturbances: 0-None Visual Disturbances: 3-Moderate Sensitivity Headache: 0-None Present CIWA-Ar Total Score: 11 S COWS - Scale Resting Pulse: 0= [place] 80 or Below Sweatin= Chills/Flushing Restless Observation: 0= Sits Still Pupil Size: 0= Normal to Room Light Bone or Joint Aches: 4=Acute Joint/Muscle Pain Runny Nose/ Eye Tearin= None GI Upset > 30mins: 0= None Tremor Observation of Outstretched Hands: 0= None Yawning Observation: 1= 1-2x During Session Anxiety or Irritability: 2=Irritable/Anxious Goose Flesh Skin: 3=Piloerection COWS Score: 11 S Progress Note (SOAP) Subjective: Body Aches, Sweating, Anxious. Objective: PATIENT A & O X 3, OBSERVED AMBULATING ON UNIT UNASSISTED. IN NO ACUTE DISTRESS. 08/15/18 16:57 Vital Signs Temperature 96.9 F L 08/15/18 14:28 Pulse Rate 61 08/15/18 14:28 Respiratory Rate 18 08/15/18 14:28 Blood Pressure 122/72 08/15/18 14:28 O2 Sat by Pulse Oximetry (%) Laboratory Tests 08/14/18 08/14/18 08/14/18 09:20 09:30 09:30 WBC 6.1 RBC 4.04 Hgb 11.9 Hct 36.0 MCV 89.1 MCH 29.4 MCHC 33.0 RDW 15.4 Plt Count 252 MPV 8.8 Sodium Potassium Chloride Carbon Dioxide Anion Gap BUN Creatinine Creat Clearance w eGFR Random Glucose Calcium Total Bilirubin AST ALT Alkaline Phosphatase Total Protein Albumin Urine Color Urine Appearance Urine pH Ur Specific [place] Urine Protein Urine Glucose (UA) Urine Ketones Urine Blood Urine Nitrite Urine Bilirubin Urine Urobilinogen Ur Leukocyte Esterase Urine WBC (Auto) Urine RBC (Auto) Urine Casts (Auto) U Epithel Cells (Auto) Urine Bacteria (Auto) POC Urine HCG, Qual Negative RPR Titer Nonreactive 08/14/18 08/14/18 09:30 10:30 WBC RBC Hgb Hct MCV MCH MCHC RDW Plt Count MPV Sodium 138 Potassium 3.8 Chloride 104 Carbon Dioxide 29 Anion Gap 6 L BUN 16 Creatinine 0.6 Creat Clearance w eGFR 119.04 Random Glucose 79 Calcium 9.4 Total Bilirubin 0.2 AST 157 H ALT 306 H Alkaline Phosphatase 109 Total Protein 7.3 Albumin 3.7 Urine Color Yellow Urine Appearance Clear Urine pH 5.0 Ur Specific [place] 1.030 Urine Protein Negative Urine Glucose (UA) Negative Urine Ketones Negative Urine Blood Negative Urine Nitrite Negative Urine Bilirubin Negative Urine Urobilinogen 1.0 Ur Leukocyte Esterase Trace Urine WBC (Auto) 30 Urine RBC (Auto) 3.0 Urine Casts (Auto) 13 U Epithel Cells (Auto) 3.3 Urine Bacteria (Auto) 52.7 POC Urine HCG, Qual RPR Titer LABS NOTED. Assessment: 08/15/18 17:01 WITHDRAWAL SYMPTOMS. ELEVATED LIVER ENZYMES (AST, ALT). Plan: CONTINUE DETOX. INCREASE DAILY PO FLUID INTAKE. DUE TO SIGNIFICANTLY ELEVATED LIVER ENZYMES (AST, ALT), PATIENT TO BE CHANGED FROM LIBRIUM DETOX MEDICATION REGIMEN TO ATIVAN DETOX MEDICATION REGIMEN. RE-CHECK AST AND ALT ON 08/17/2018.
[2018-08-15] MEDS: LORazepam 1 MG TABLET PO SCH (22:28)
[2018-08-15] MEDS: hydrOXYzine PAMOATE 25 MG CAPSULE (FP) PO PRN (22:28)
[2018-08-15] MEDS: THIAMINE HCL 100 MG TABLET (FP) PO SCH (22:28)
[2018-08-15] MEDS: IBUPROFEN 400 MG TABLET (FP) PO PRN (22:29)
[2018-08-15] MEDS: MELATONIN 5 MG TABLETS PO PRN (22:31)
[2018-08-16] MEDS: LORazepam 1 MG TABLET PO SCH ×2 (05:11→10:40)
[2018-08-16] MEDS: METHOCARBAMOL 500 MG TABLET PO PRN ×2 (05:13→17:51)
[2018-08-16] MEDS ORDERED: METHADONE HCL 10 MG TABLET (FOR DETOX USE ONLY) PO ONE (10:00)
[2018-08-16] MEDS: FLUOCINONIDE 0.05% CREAM (60 GM TUBE) TP SCH ×2 (10:40→23:47)
[2018-08-16] MEDS: PRENATAL VITAMINS W/ FOLIC ACID TABLET (FP) PO SCH (10:40)
[2018-08-16] MEDS ORDERED: chlordiazePOXIDE HCL 10 MG CAPSULE PO SCH (11:00)
[2018-08-16] MEDS ORDERED: chlordiazePOXIDE HCL 10 MG CAPSULE PO PRN (11:00)
--- NOTE | 2018-08-16 15:32 | PN ---
[facility] CIWA - CIWA Score Nausea/Vomitin-No Nausea/No Vomiting Muscle Tremors: 2 Anxiety: 1-Mildly Anxious Agitation: 1-Slight > Activity Paroxysmal Sweats: 4-Forehead w/Sweat Beads Orientation: 0-Oriented Tacttile Disturbances: 1-Very Mild Itch/Numbness Auditory Disturbances: 0-None Visual Disturbances: 0-None Headache: 2-Mild CIWA-Ar Total Score: 11 [facility] COWS - Scale Resting Pulse: 1= [place] 81-100 Sweatin= Chills/Flushing Restless Observation: 0= Sits Still Pupil Size: 0= Normal to Room Light Bone or Joint Aches: 4=Acute Joint/Muscle Pain Runny Nose/ Eye Tearin= None GI Upset > 30mins: 0= None Tremor Observation of Outstretched Hands: 2= Slight Tremor Visible Yawning Observation: 1= 1-2x During Session Anxiety or Irritability: 1=Feels Anxious/Irritable Goose Flesh Skin: 0=Smooth Skin COWS Score: 10 [facility] Progress Note (SOAP) Subjective: c/o interrupted sleep, headache, and sweats. Objective: 08/16/18 15:35 Vital Signs 08/16/18 08/16/18 09:55 14:18 Temperature 97.9 F 96.9 F L Pulse Rate 91 H 87 Respiratory 18 18 Rate Blood Pressure 110/62 105/60 Vital signs noted. Assessment: 08/16/18 15:35 AOx3, no distress noted Full ROM, ambulating in the unit. withdrawal symptoms persists. Plan: Continue detox increase fluids continue to monitor for withdrawal signs.
[2018-08-16] MEDS ORDERED: LORazepam 0.5 MG TABLET PO PRN (17:00)
[2018-08-16] MEDS: LORazepam 0.5 MG TABLET PO SCH ×2 (17:51→22:24)
[2018-08-16] MEDS: THIAMINE HCL 100 MG TABLET (FP) PO SCH (22:24)
[2018-08-16] MEDS: IBUPROFEN 400 MG TABLET (FP) PO PRN (22:26)
[2018-08-16] MEDS: MELATONIN 5 MG TABLETS PO PRN (22:27)
[2018-08-17] MEDS: hydrOXYzine PAMOATE 25 MG CAPSULE (FP) PO PRN (06:06)
[2018-08-17] MEDS: LORazepam 0.5 MG TABLET PO SCH ×2 (06:06→10:27)
[2018-08-17] MEDS: METHOCARBAMOL 500 MG TABLET PO PRN ×2 (06:06→15:20)
[2018-08-17] MEDS ORDERED: METHADONE HCL 10 MG TABLET (FOR DETOX USE ONLY) ONE (09:17)
[2018-08-17] MEDS ORDERED: METHADONE HCL 5 MG TABLET (FOR DETOX USE ONLY) ONE (09:17)
[2018-08-17] MEDS ORDERED: METHADONE HCL 10 MG TABLET (FOR DETOX USE ONLY) PO ONE (10:00)
[2018-08-17] MEDS ORDERED: METHADONE (DETOX) 10 MG, METHADONE (DETOX) 5 MG PO ONE (10:00)
[2018-08-17] MEDS: PRENATAL VITAMINS W/ FOLIC ACID TABLET (FP) PO SCH (10:27)
[2018-08-17] MEDS: FLUOCINONIDE 0.05% CREAM (60 GM TUBE) TP SCH (10:28)
[2018-08-17] MEDS ORDERED: chlordiazePOXIDE HCL 10 MG CAPSULE PO SCH (11:00)
--- NOTE | 2018-08-17 16:54 | DS ---
[facility] Detox Discharge Summary Admission Date: 08/14/18 Discharge Date: 08/17/18 - History Present History: Alcohol Dependence, Cocaine Dependence, Opioid Dependence - Physical Exam Results Vital Signs: Vital Signs Temperature 97.7 F 08/17/18 14:19 Pulse Rate 96 H 08/17/18 14:19 Respiratory Rate 16 08/17/18 14:19 Blood Pressure 96/50 L 08/17/18 14:19 O2 Sat by Pulse Oximetry (%) Pertinent Admission Physical Exam Findings: Laboratory Last Values WBC 6.1 K/mm3 (4.0-10.0) 08/14/18 09:30 RBC 4.04 M/mm3 (3.60-5.2) 08/14/18 09:30 Hgb 11.9 GM/dL (10.7-15.3) 08/14/18 09:30 Hct 36.0 % (32.4-45.2) 08/14/18 09:30 MCV 89.1 fl (80-96) 08/14/18 09:30 MCH 29.4 pg (25.7-33.7) 08/14/18 09:30 MCHC 33.0 g/dl (32.0-36.0) 08/14/18 09:30 RDW 15.4 % (11.6-15.6) 08/14/18 09:30 Plt Count 252 K/MM3 (134-434) 08/14/18 09:30 MPV 8.8 fl (7.5-11.1) 08/14/18 09:30 Sodium 138 mmol/L (136-145) 08/14/18 09:30 Potassium 3.8 mmol/L (3.5-5.1) 08/14/18 09:30 Chloride 104 mmol/L (98-107) 08/14/18 09:30 Carbon Dioxide 29 mmol/L (21-32) 08/14/18 09:30 Anion Gap 6 MMOL/L (8-16) L 08/14/18 09:30 BUN 16 mg/dL (7-18) 08/14/18 09:30 Creatinine 0.6 mg/dL (0.55-1.3) 08/14/18 09:30 Creat Clearance w eGFR 119.04 (>60) 08/14/18 09:30 Random Glucose 79 mg/dL (74-106) 08/14/18 09:30 Calcium 9.4 mg/dL (8.5-10.1) 08/14/18 09:30 Total Bilirubin 0.2 mg/dL (0.2-1) 08/14/18 09:30 AST 157 U/L (15-37) H 08/14/18 09:30 ALT 306 U/L (13-61) H 08/14/18 09:30 Alkaline Phosphatase 109 U/L (45-117) 08/14/18 09:30 Total Protein 7.3 g/dl (6.4-8.2) 08/14/18 09:30 Albumin 3.7 g/dl (3.4-5.0) 08/14/18 09:30 Urine Color Yellow 08/14/18 10:30 Urine Appearance Clear 08/14/18 10:30 Urine pH 5.0 (5.0-8.0) 08/14/18 10:30 Ur Specific [place] 1.030 (1.010-1.035) 08/14/18 10:30 Urine Protein Negative (NEGATIVE) 08/14/18 10:30 Urine Glucose (UA) Negative (NEGATIVE) 08/14/18 10:30 Urine Ketones Negative (NEGATIVE) 08/14/18 10:30 Urine Blood Negative (NEGATIVE) 08/14/18 10:30 Urine Nitrite Negative (NEGATIVE) 08/14/18 10:30 Urine Bilirubin Negative (NEGATIVE) 08/14/18 10:30 Urine Urobilinogen 1.0 mg/dL (0.2-1.0) 08/14/18 10:30 Ur Leukocyte Esterase Trace (NEGATIVE) 08/14/18 10:30 Urine WBC (Auto) 30 /hpf (0-5) 08/14/18 10:30 Urine RBC (Auto) 3.0 /hpf (0-4) 08/14/18 10:30 Urine Casts (Auto) 13 /lpf (0-8) 08/14/18 10:30 U Epithel Cells (Auto) 3.3 /HPF (0-5/HPF) 08/14/18 10:30 Urine Bacteria (Auto) 52.7 /hpf (NEGATIVE) 08/14/18 10:30 POC Urine HCG, Qual Negative 08/14/18 09:20 RPR Titer Nonreactive (NONREACTIVE) 08/14/18 09:30 Labs noted. - Medication Discharge Medications: Ambulatory Orders Quetiapine Fumarate [Seroquel -] 300 mg PO HS #30 tablet 02/24/18 - Diagnosis (1) Umbilical hernia Current Visit: No Status: Acute Qualifiers: (2) Weight loss Current Visit: No Status: Acute (3) Alcohol dependence with uncomplicated withdrawal Current Visit: Yes Status: Chronic (4) Asthma Current Visit: Yes Status: Chronic Qualifiers: Asthma severity: mild Asthma persistence: intermittent Asthma complication type: with status asthmaticus Qualified Code(s): J45.22 - Mild intermittent asthma with status asthmaticus (5) Cocaine dependence, uncomplicated Current Visit: Yes Status: Chronic (6) Nicotine dependence Current Visit: Yes Status: Chronic Qualifiers: Nicotine product type: cigarettes Substance use status: uncomplicated Qualified Code(s): F17.210 - Nicotine dependence, cigarettes, uncomplicated - AMA Did Patient Leave Against Medical Advice: Yes (Met w/ the pt; she stated she did not need any med. refills sent to pharmac)
[2018-08-17 17:41] VITALS: BP 110/66; PULSE 112; TEMP 97.5
[2018-08-18] MEDS ORDERED: METHADONE HCL 5 MG TABLET (FOR DETOX USE ONLY) PO ONE (06:00)
[2018-08-18] MEDS ORDERED: METHADONE HCL 10 MG TABLET (FOR DETOX USE ONLY) PO ONE (10:00)
[2018-08-19] MEDS ORDERED: METHADONE HCL 5 MG TABLET (FOR DETOX USE ONLY) PO ONE (06:00)
== END 2018-08-17 04:44 | disposition left against medical advice (07) | DRG 770 ==
LOC: YASAS 08:04 → Y6N 09:43
PROVIDERS: ADMIT Surgery; ATTEND Surgery
PROC: HZ2ZZZZ Detoxification Services for Substance Abuse Treatment (ICD-10-PCS; principal; 2018-08-14)
DX: F11.23 Opioid dependence with withdrawal (principal); F10.230 Alcohol dependence with withdrawal, uncomplicated; F14.20 Cocaine dependence, uncomplicated; F17.210 Nicotine dependence, cigarettes, uncomplicated; F51.05 Insomnia due to other mental disorder; F41.8 Other specified anxiety disorders; F32.9 Major depressive disorder, single episode, unspecified; R94.5 Abnormal results of liver function studies; K42.9 Umbilical hernia without obstruction or gangrene; E86.0 Dehydration; R63.4 Abnormal weight loss; Z59.0 Homelessness
CPT/HCPCS: 36415; 80053; 81003; 81025; 85027; 86593

== ENCOUNTER 2018-09-22 12:45 | Inpatient (IN) | payer OTHER ==
[~2018-09-22 12:45] MED LIST: METHADONE HCL 10 MG TABLET (FOR DETOX USE ONLY) PO ONE
[2018-09-22 15:18] VITALS: BMI 16.7
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
[2018-09-22] MEDS ORDERED: MENTHOL/PHENOL 1 EACH UD MM PRN (18:00)
[2018-09-22] MEDS ORDERED: BISMUTH SUBSALICYLATE 524 MG/30 ML UD PO PRN (18:00)
[2018-09-22] MEDS ORDERED: MAGNESIUM HYDROX 2400MG/30ML ORAL SUSPENSION 30 ML CUP PO PRN (18:00)
[2018-09-22] MEDS ORDERED: MAG HYDROX/AL HYDROX/SIMETH 30 ML UNIT-DOSE CUP PO PRN (18:00)
[2018-09-22] MEDS ORDERED: chlordiazePOXIDE HCL 25 MG CAPSULE PO PRN (18:00)
[2018-09-22] MEDS ORDERED: cloNIDine HCL 0.1 MG TABLET PO PRN (18:00)
[2018-09-22] MEDS ORDERED: MAGNESIUM CITRATE 300 ML BOTTLE PO PRN (18:00)
[2018-09-22] MEDS ORDERED: hydrOXYzine PAMOATE 25 MG CAPSULE (FP) PO PRN (18:00)
[2018-09-22] MEDS ORDERED: ONDANSETRON *ODT* 4 MG TABLET SL PRN (18:00)
[2018-09-22] MEDS ORDERED: IBUPROFEN 400 MG TABLET (FP) PO PRN (18:00)
[2018-09-22] MEDS ORDERED: ACETAMINOPHEN 325 MG TABLET (FP) PO PRN ×2 (18:00)
[2018-09-22] MEDS ORDERED: METHOCARBAMOL 500 MG TABLET PO PRN (18:00)
[2018-09-22] MEDS ORDERED: HYDROCORTISONE 1% TOPICAL OINT 30 GM TUBE TP PRN (18:05)
[2018-09-22] MEDS ORDERED: METHADONE HCL 10 MG TABLET (FOR DETOX USE ONLY) PO ONE ×2 (19:30→23:00)
[2018-09-22] MEDS: THIAMINE HCL 100 MG TABLET (FP) PO SCH (23:01)
[2018-09-22] MEDS: chlordiazePOXIDE HCL 25 MG CAPSULE PO SCH (23:01)
[2018-09-22] MEDS: MELATONIN 5 MG TABLETS PO PRN (23:02)
[2018-09-23] MEDS: chlordiazePOXIDE HCL 25 MG CAPSULE PO SCH ×3 (05:58→17:15)
[2018-09-23 09:45] LABS: PH,URINE 6.5 (5.0-8.0); URINE APPEARANCE TURBID; URINE BILIRUBIN NEGATIVE (NEGATIVE); URINE COLOR DK YELLOW; URINE GLUCOSE (UA) NEGATIVE (NEGATIVE); URINE KETONE NEGATIVE (NEGATIVE); URINE LEUK ESTERASE NEGATIVE (NEGATIVE); URINE NITRITE NEGATIVE (NEGATIVE); URINE PROTEIN TRACE (NEGATIVE)
[2018-09-23] MEDS ORDERED: METHADONE HCL 10 MG TABLET (FOR DETOX USE ONLY) PO ONE (10:00)
[2018-09-23 10:22] LABS: HEMATOCRIT 41.6 % (32.4-45.2); HEMOGLOBIN 13.8 GM/dL (10.7-15.3); MCH 28.7 pg (25.7-33.7); MEAN CELL VOLUME 86.7 fl (80-96); MEAN PLT VOLUME 9.3 fl (7.5-11.1); PLATELET COUNT 259 K/MM3 (134-434); RDW 14.7 % (11.6-15.6); WHITE BLOOD COUNT 4.6 K/mm3 (4.0-10.0)
[2018-09-23] MEDS: PRENATAL VITAMINS W/ FOLIC ACID TABLET (FP) PO SCH (10:27)
[2018-09-23 10:37] LABS: ALBUMIN 3.5 g/dl (3.4-5.0); BILIRUBIN,TOTAL 0.4 mg/dL (0.2-1); BLOOD UREA NITROGEN 8.1 mg/dL (7-18); CALCIUM 9.7 mg/dL (8.5-10.1); CREATININE 0.8 mg/dL (0.55-1.3); POTASSIUM 3.9 mmol/L (3.5-5.1); TOT PROT 7.4 g/dl (6.4-8.2)
--- NOTE | 2018-09-23 15:51 | PN ---
S CIWA - CIWA Score Nausea/Vomitin-No Nausea/No Vomiting Muscle Tremors: None Anxiety: 3 Agitation: 0-Normal Activity Paroxysmal Sweats: No Perspiration Orientation: 2-Disoriented Date<2 days Tacttile Disturbances: 2-Mild Itch/Numbness/Burn Auditory Disturbances: 2-Mild Harshness/Frighten Visual Disturbances: 3-Moderate Sensitivity Headache: 0-None Present CIWA-Ar Total Score: 12 BHS COWS - Scale Resting Pulse: 1= [place] 81-100 Sweatin= No chills or Flushing Restless Observation: 0= Sits Still Pupil Size: 0= Normal to Room Light Bone or Joint Aches: 2= Severe Diffuse Aches Runny Nose/ Eye Tearin= None GI Upset > 30mins: 3= Vomiting/Diarrhea Tremor Observation of Outstretched Hands: 0= None Yawning Observation: 2= >3x During Session Anxiety or Irritability: 2=Irritable/Anxious Goose Flesh Skin: 3=Piloerection COWS Score: 13 S Progress Note (SOAP) Subjective: Vomiting, Stomach Cramping, Anxious, Fatigue. Objective: PATIENT A & O X 2 (UNCERTAIN ABOUT CURRENT DAY / DATE). PATIENT OBSERVED AMBULATING ON UNIT UNASSISTED. IN NO ACUTE DISTRESS. 09/23/18 15:58 Vital Signs Temperature 98.8 F 09/23/18 13:30 Pulse Rate 88 09/23/18 13:30 Respiratory Rate 18 09/23/18 13:30 Blood Pressure 108/73 09/23/18 13:30 O2 Sat by Pulse Oximetry (%) Laboratory Tests 09/22/18 09/23/18 09/23/18 17:28 07:00 07:00 WBC 4.6 RBC 4.80 Hgb 13.8 Hct 41.6 D MCV 86.7 MCH 28.7 MCHC 33.0 RDW 14.7 Plt Count 259 MPV 9.3 Sodium 139 Potassium 3.9 Chloride 104 Carbon Dioxide 30 Anion Gap 6 L BUN 8.1 Creatinine 0.8 Est GFR (CKD-EPI)AfAm 116.28 Est GFR (CKD-EPI)NonAf 100.33 Random Glucose 116 H Calcium 9.7 Total Bilirubin 0.4 AST 42 H ALT 58 Alkaline Phosphatase 110 Total Protein 7.4 Albumin 3.5 Urine Color Urine Appearance Urine pH Ur Specific [place] Urine Protein Urine Glucose (UA) Urine Ketones Urine Blood Urine Nitrite Urine Bilirubin Urine Urobilinogen Ur Leukocyte Esterase POC Urine HCG, Qual Negative 09/23/18 08:45 WBC RBC Hgb Hct MCV MCH MCHC RDW Plt Count MPV Sodium Potassium Chloride Carbon Dioxide Anion Gap BUN Creatinine Est GFR (CKD-EPI)AfAm Est GFR (CKD-EPI)NonAf Random Glucose Calcium Total Bilirubin AST ALT Alkaline Phosphatase Total Protein Albumin Urine Color Dk yellow Urine Appearance Turbid Urine pH 6.5 D Ur Specific [place] 1.027 Urine Protein Trace Urine Glucose (UA) Negative Urine Ketones Negative Urine Blood Negative Urine Nitrite Negative Urine Bilirubin Negative Urine Urobilinogen 1.0 Ur Leukocyte Esterase Negative POC Urine HCG, Qual LABS NOTED. Assessment: 09/23/18 15:58 WITHDRAWAL SYMPTOMS. Plan: CONTINUE DETOX. ENSURE PO BID FOR CALORIC SUPPLEMENTATION.
[2018-09-23] MEDS: MELATONIN 5 MG TABLETS PO PRN (22:10)
[2018-09-23] MEDS: THIAMINE HCL 100 MG TABLET (FP) PO SCH (22:10)
[2018-09-23] MEDS: chlordiazePOXIDE 5 MG CAPSULE PO SCH (22:10)
[2018-09-24] MEDS: chlordiazePOXIDE 5 MG CAPSULE PO SCH ×3 (05:40→17:18)
[2018-09-24] MEDS ORDERED: METHADONE HCL 10 MG TABLET (FOR DETOX USE ONLY) PO ONE (10:00)
[2018-09-24] MEDS: PRENATAL VITAMINS W/ FOLIC ACID TABLET (FP) PO SCH (10:29)
--- NOTE | 2018-09-24 14:34 | PN ---
S CIWA - CIWA Score Nausea/Vomitin (Stomach Cramping.) Muscle Tremors: None Anxiety: 3 Agitation: 0-Normal Activity Paroxysmal Sweats: 3 Orientation: 2-Disoriented Date<2 days Tacttile Disturbances: 2-Mild Itch/Numbness/Burn Auditory Disturbances: 0-None Visual Disturbances: 2-Mild Sensitivity Headache: 0-None Present CIWA-Ar Total Score: 14 BHS COWS - Scale Resting Pulse: 1= [place] 81-100 Sweatin= Chills/Flushing Restless Observation: 0= Sits Still Pupil Size: 0= Normal to Room Light Bone or Joint Aches: 0= None Runny Nose/ Eye Tearin= None GI Upset > 30mins: 1= Stomach Cramp Tremor Observation of Outstretched Hands: 0= None Yawning Observation: 1= 1-2x During Session Anxiety or Irritability: 2=Irritable/Anxious Goose Flesh Skin: 3=Piloerection COWS Score: 9 S Progress Note (SOAP) Subjective: Stomach Cramping, Sweating, Interrupted Sleep, Poor Appetite, Fatigue. Objective: PATIENT A & O X 2 (UNCERTAIN ABOUT CURRENT DAY / DATE). IN NO ACUTE DISTRESS. 09/24/18 14:33 Vital Signs Temperature 99 F 09/24/18 14:01 Pulse Rate 81 09/24/18 14:01 Respiratory Rate 18 09/24/18 14:01 Blood Pressure 117/74 09/24/18 14:01 O2 Sat by Pulse Oximetry (%) Laboratory Tests 09/22/18 09/23/18 09/23/18 17:28 07:00 07:00 WBC 4.6 RBC 4.80 Hgb 13.8 Hct 41.6 D MCV 86.7 MCH 28.7 MCHC 33.0 RDW 14.7 Plt Count 259 MPV 9.3 Sodium 139 Potassium 3.9 Chloride 104 Carbon Dioxide 30 Anion Gap 6 L BUN 8.1 Creatinine 0.8 Est GFR (CKD-EPI)AfAm 116.28 Est GFR (CKD-EPI)NonAf 100.33 Random Glucose 116 H Calcium 9.7 Total Bilirubin 0.4 AST 42 H ALT 58 Alkaline Phosphatase 110 Total Protein 7.4 Albumin 3.5 Urine Color Urine Appearance Urine pH Ur Specific [place] Urine Protein Urine Glucose (UA) Urine Ketones Urine Blood Urine Nitrite Urine Bilirubin Urine Urobilinogen Ur Leukocyte Esterase POC Urine HCG, Qual Negative RPR Titer 09/23/18 09/23/18 07:00 08:45 WBC RBCLABS NOTED. Hgb Hct MCV MCH MCHC RDW Plt Count MPV Sodium Potassium Chloride Carbon Dioxide Anion Gap BUN Creatinine Est GFR (CKD-EPI)AfAm Est GFR (CKD-EPI)NonAf Random Glucose Calcium Total Bilirubin AST ALT Alkaline Phosphatase Total Protein Albumin Urine Color Dk yellow Urine Appearance Turbid Urine pH 6.5 D Ur Specific [place] 1.027 Urine Protein Trace Urine Glucose (UA) Negative Urine Ketones Negative Urine Blood Negative Urine Nitrite Negative Urine Bilirubin Negative Urine Urobilinogen 1.0 Ur Leukocyte Esterase Negative POC Urine HCG, Qual RPR Titer Nonreactive LABS NOTED. Assessment: 09/24/18 14:34 WITHDRAWAL SYMPTOMS. Plan: CONTINUE DETOX. ENSURE PO FOR CALORIC SUPPLEMENTATION.
--- NOTE | 2018-09-24 17:38 | DS ---
[facility] Detox Discharge Summary Admission Date: 09/22/18 Discharge Date: 09/24/18 - History Present History: Cocaine Dependence, Opioid Dependence - Physical Exam Results Vital Signs: Vital Signs Temperature 99 F 09/24/18 14:01 Pulse Rate 81 09/24/18 14:01 Respiratory Rate 18 09/24/18 14:01 Blood Pressure 117/74 09/24/18 14:01 O2 Sat by Pulse Oximetry (%) Pertinent Admission Physical Exam Findings: Laboratory Last Values WBC 4.6 K/mm3 (4.0-10.0) 09/23/18 07:00 RBC 4.80 M/mm3 (3.60-5.2) 09/23/18 07:00 Hgb 13.8 GM/dL (10.7-15.3) 09/23/18 07:00 Hct 41.6 % (32.4-45.2) D 09/23/18 07:00 MCV 86.7 fl (80-96) 09/23/18 07:00 MCH 28.7 pg (25.7-33.7) 09/23/18 07:00 MCHC 33.0 g/dl (32.0-36.0) 09/23/18 07:00 RDW 14.7 % (11.6-15.6) 09/23/18 07:00 Plt Count 259 K/MM3 (134-434) 09/23/18 07:00 MPV 9.3 fl (7.5-11.1) 09/23/18 07:00 Sodium 139 mmol/L (136-145) 09/23/18 07:00 Potassium 3.9 mmol/L (3.5-5.1) 09/23/18 07:00 Chloride 104 mmol/L (98-107) 09/23/18 07:00 Carbon Dioxide 30 mmol/L (21-32) 09/23/18 07:00 Anion Gap 6 MMOL/L (8-16) L 09/23/18 07:00 BUN 8.1 mg/dL (7-18) 09/23/18 07:00 Creatinine 0.8 mg/dL (0.55-1.3) 09/23/18 07:00 Est GFR (CKD-EPI)AfAm 116.28 09/23/18 07:00 Est GFR (CKD-EPI)NonAf 100.33 09/23/18 07:00 Random Glucose 116 mg/dL (74-106) H 09/23/18 07:00 Calcium 9.7 mg/dL (8.5-10.1) 09/23/18 07:00 Total Bilirubin 0.4 mg/dL (0.2-1) 09/23/18 07:00 AST 42 U/L (15-37) H 09/23/18 07:00 ALT 58 U/L (13-61) 09/23/18 07:00 Alkaline Phosphatase 110 U/L (45-117) 09/23/18 07:00 Total Protein 7.4 g/dl (6.4-8.2) 09/23/18 07:00 Albumin 3.5 g/dl (3.4-5.0) 09/23/18 07:00 Urine Color Dk yellow 09/23/18 08:45 Urine Appearance Turbid 09/23/18 08:45 Urine pH 6.5 (5.0-8.0) D 09/23/18 08:45 Ur Specific [place] 1.027 (1.010-1.035) 09/23/18 08:45 Urine Protein Trace (NEGATIVE) 09/23/18 08:45 Urine Glucose (UA) Negative (NEGATIVE) 09/23/18 08:45 Urine Ketones Negative (NEGATIVE) 09/23/18 08:45 Urine Blood Negative (NEGATIVE) 09/23/18 08:45 Urine Nitrite Negative (NEGATIVE) 09/23/18 08:45 Urine Bilirubin Negative (NEGATIVE) 09/23/18 08:45 Urine Urobilinogen 1.0 mg/dL (0.2-1.0) 09/23/18 08:45 Ur Leukocyte Esterase Negative (NEGATIVE) 09/23/18 08:45 POC Urine HCG, Qual Negative 09/22/18 17:28 RPR Titer Nonreactive (NONREACTIVE) 09/23/18 07:00 labs noted - Medication Discharge Medications: Ambulatory Orders Quetiapine Fumarate [Seroquel -] 200 mg PO HS 09/22/18 - Diagnosis (1) Alcohol dependence with uncomplicated withdrawal Current Visit: Yes Status: Chronic (2) Opioid dependence with withdrawal Current Visit: Yes Status: Chronic (3) Nicotine dependence Current Visit: Yes Status: Chronic Qualifiers: Nicotine product type: cigarettes Substance use status: uncomplicated Qualified Code(s): F17.210 - Nicotine dependence, cigarettes, uncomplicated - AMA Did Patient Leave Against Medical Advice: Yes
[2018-09-24 18:04] VITALS: BP 99/61; PULSE 73; TEMP 97
[2018-09-24] MEDS ORDERED: chlordiazePOXIDE HCL 10 MG CAPSULE PO SCH (23:00)
[2018-09-24] MEDS ORDERED: chlordiazePOXIDE HCL 10 MG CAPSULE PO PRN (23:00)
[2018-09-25] MEDS ORDERED: METHADONE HCL 10 MG TABLET (FOR DETOX USE ONLY) PO ONE (10:00)
[2018-09-25] MEDS ORDERED: chlordiazePOXIDE HCL 10 MG CAPSULE PO SCH (23:00)
[2018-09-26] MEDS ORDERED: METHADONE HCL 5 MG TABLET (FOR DETOX USE ONLY) PO ONE (06:00)
== END 2018-09-24 17:58 | disposition left against medical advice (07) | DRG 770 ==
LOC: YASAS 12:45 → Y3N 18:22
PROVIDERS: ADMIT Surgery; ATTEND Surgery
PROC: HZ2ZZZZ Detoxification Services for Substance Abuse Treatment (ICD-10-PCS; principal; 2018-09-22)
DX: F10.230 Alcohol dependence with withdrawal, uncomplicated (principal); F11.23 Opioid dependence with withdrawal; F14.20 Cocaine dependence, uncomplicated; F17.210 Nicotine dependence, cigarettes, uncomplicated; L40.9 Psoriasis, unspecified; Z59.0 Homelessness
CPT/HCPCS: 36415; 80053; 81003; 81025; 85027; 86593

== ENCOUNTER 2018-11-11 11:49 | Inpatient (IN) | payer OTHER ==
[2018-11-11 14:48] VITALS: BMI 16.9
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
[2018-11-11] MEDS ORDERED: chlordiazePOXIDE HCL 25 MG CAPSULE PO PRN (17:43)
[2018-11-11] MEDS ORDERED: METHADONE HCL 10 MG TABLET (FOR DETOX USE ONLY) PO ONE (17:44)
[2018-11-11] MEDS ORDERED: cloNIDine HCL 0.1 MG TABLET PO PRN (17:44)
[2018-11-11] MEDS ORDERED: MAGNESIUM HYDROX 2400MG/30ML ORAL SUSPENSION 30 ML CUP PO PRN (17:46)
[2018-11-11] MEDS ORDERED: ACETAMINOPHEN 325 MG TABLET (FP) PO PRN (17:46)
[2018-11-11] MEDS ORDERED: MAG HYDROX/AL HYDROX/SIMETH 30 ML UNIT-DOSE CUP PO PRN (17:46)
[2018-11-11] MEDS ORDERED: IBUPROFEN 400 MG TABLET (FP) PO PRN (17:46)
[2018-11-11] MEDS ORDERED: BISMUTH SUBSALICYLATE 524 MG/30 ML UD PO PRN (17:46)
[2018-11-11] MEDS ORDERED: hydrOXYzine HCL 25 MG TABLET (FP) PO PRN (17:46)
[2018-11-11] MEDS ORDERED: MENTHOL/PHENOL 1 EACH UD MM PRN (17:46)
[2018-11-11] MEDS ORDERED: MELATONIN 5 MG TABLETS PO PRN (17:46)
--- NOTE | 2018-11-11 17:47 | PN ---
Teaching Attending Note Name of Resident: Gisselle Stein ATTENDING PHYSICIAN STATEMENT I saw and evaluated the patient. I reviewed the resident's note and discussed the case with the resident. I agree with the resident's findings and plan as documented. SUBJECTIVE: 27 yo with h/o psoriasis, depression, here with polysubstance use- alcohol, heroin IV several bundles a day, cocaine and cigarette use. Pt is homeless, does not have a PCP. Pt has been on Suboxone in the past- would like to restart. OBJECTIVE: Vital Signs - 24 hr 11/11/18 14:44 Temperature 97.5 F L Pulse Rate 107 H Respiratory 16 Rate Blood Pressure 93/66 pt sleepy/lethargic oriented psoriatic skin lesions ASSESSMENT AND PLAN: Pt here for alcohol use disorder and opioid use disorder- treatment with librium and methadone steroid cream for psoriasis referral to suboxone program
[2018-11-11] MEDS ORDERED: HYDROCORTISONE 0.5% TOPICAL OINTMENT TUBE TP PRN (17:50)
[2018-11-11] MEDS: NICOTINE 14 MG/24 HOURS TOPICAL PATCH TD SCH (18:36)
[2018-11-11] MEDS: chlordiazePOXIDE HCL 25 MG CAPSULE PO SCH (22:33)
[2018-11-12] MEDS: chlordiazePOXIDE HCL 25 MG CAPSULE PO SCH ×4 (06:07→22:33)
[2018-11-12] MEDS: ACETAMINOPHEN 325 MG TABLET (FP) PO PRN (06:07)
[2018-11-12] MEDS ORDERED: METHADONE HCL 5 MG TABLET (FOR DETOX USE ONLY) ONE (09:12)
[2018-11-12] MEDS ORDERED: METHADONE HCL 10 MG TABLET (FOR DETOX USE ONLY) ONE (09:13)
[2018-11-12] MEDS ORDERED: METHADONE (DETOX) 20 MG, METHADONE (DETOX) 5 MG PO ONE (10:00)
[2018-11-12] MEDS: NICOTINE 14 MG/24 HOURS TOPICAL PATCH TD SCH (11:01)
[2018-11-12] MEDS: PRENATAL VITAMINS W/ FOLIC ACID TABLET (FP) PO SCH (11:01)
--- NOTE | 2018-11-12 12:13 | PN ---
[facility] CIWA - CIWA Score Nausea/Vomitin-No Nausea/No Vomiting Muscle Tremors: 3 Anxiety: 3 Agitation: 3 Paroxysmal Sweats: 2 Orientation: 0-Oriented Tacttile Disturbances: 0-None Auditory Disturbances: 0-None Visual Disturbances: 0-None Headache: 0-None Present CIWA-Ar Total Score: 11 S COWS - Scale Resting Pulse: 1= [place] 81-100 Sweatin=Flushed/Facial Moisture Restless Observation: 1= Difficult to Sit Still Pupil Size: 0= Normal to Room Light Bone or Joint Aches: 2= Severe Diffuse Aches Runny Nose/ Eye Tearin= Nasal Congestion GI Upset > 30mins: 0= None Tremor Observation of Outstretched Hands: 1= Tremor [place], Not Seen Yawning Observation: 1= 1-2x During Session Anxiety or Irritability: 1=Feels Anxious/Irritable Goose Flesh Skin: 0=Smooth Skin COWS Score: 10 [facility] Progress Note (SOAP) Subjective: sweats shakes interrupted sleep body aches nausea Objective: 11/12/18 12:12 Vital Signs Temperature 98.2 F 11/12/18 09:37 Pulse Rate 81 11/12/18 09:37 Respiratory Rate 16 11/12/18 09:37 Blood Pressure 101/59 L 11/12/18 09:37 O2 Sat by Pulse Oximetry (%) labs pending aaox3 ambulating no acute distress Assessment: 11/12/18 12:12 withdrawal sx Plan: continue detox increase fluids
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
[2018-11-12] MEDS: QUEtiapine FUMARATE 50 MG TABLET PO SCH (22:33)
[2018-11-13] MEDS: chlordiazePOXIDE HCL 25 MG CAPSULE PO SCH ×4 (06:41→22:23)
[2018-11-13] MEDS ORDERED: METHADONE HCL 10 MG TABLET (FOR DETOX USE ONLY) PO ONE (10:00)
[2018-11-13] MEDS: PRENATAL VITAMINS W/ FOLIC ACID TABLET (FP) PO SCH (10:48)
[2018-11-13] MEDS: NICOTINE 14 MG/24 HOURS TOPICAL PATCH TD SCH (10:49)
--- NOTE | 2018-11-13 12:57 | PN ---
[facility] CIWA - CIWA Score Nausea/Vomitin-No Nausea/No Vomiting Muscle Tremors: 2 Anxiety: 2 Agitation: 3 Paroxysmal Sweats: 2 Orientation: 0-Oriented Tacttile Disturbances: 0-None Auditory Disturbances: 0-None Visual Disturbances: 0-None Headache: 0-None Present CIWA-Ar Total Score: 9 [facility] COWS - Scale Resting Pulse: 1= [place] 81-100 Sweatin=Flushed/Facial Moisture Restless Observation: 0= Sits Still Pupil Size: 0= Normal to Room Light Bone or Joint Aches: 2= Severe Diffuse Aches Runny Nose/ Eye Tearin= Nasal Congestion GI Upset > 30mins: 0= None Tremor Observation of Outstretched Hands: 1= Tremor [place], Not Seen Yawning Observation: 1= 1-2x During Session Anxiety or Irritability: 1=Feels Anxious/Irritable Goose Flesh Skin: 0=Smooth Skin COWS Score: 9 [facility] Progress Note (SOAP) Subjective: sweats shakes interrupted sleep body aches Objective: 11/13/18 12:53 Vital Signs Temperature 98.1 F 11/13/18 09:49 Pulse Rate 91 H 11/13/18 09:49 Respiratory Rate 18 11/13/18 09:49 Blood Pressure 104/71 11/13/18 09:49 O2 Sat by Pulse Oximetry (%) Laboratory Tests 11/11/18 15:34 POC Urine HCG, Qual Negative labs noted aaox3 ambulating no acute distress Assessment: 11/13/18 12:57 withdrawal sx Plan: continue detox increase fluids
[2018-11-13] MEDS: QUEtiapine FUMARATE 50 MG TABLET PO SCH (22:23)
[2018-11-14] MEDS ORDERED: chlordiazePOXIDE HCL 10 MG CAPSULE PO PRN
[2018-11-14] MEDS: chlordiazePOXIDE HCL 10 MG CAPSULE PO SCH ×2 (05:27→10:24)
[2018-11-14] MEDS ORDERED: METHADONE HCL 5 MG TABLET (FOR DETOX USE ONLY) ONE (09:24)
[2018-11-14] MEDS ORDERED: METHADONE HCL 10 MG TABLET (FOR DETOX USE ONLY) ONE (09:24)
[2018-11-14] MEDS ORDERED: METHADONE (DETOX) 10 MG, METHADONE (DETOX) 5 MG PO ONE (10:00)
[2018-11-14] MEDS: ACETAMINOPHEN 325 MG TABLET (FP) PO PRN (10:23)
[2018-11-14] MEDS: NICOTINE 14 MG/24 HOURS TOPICAL PATCH TD SCH (10:24)
[2018-11-14] MEDS: PRENATAL VITAMINS W/ FOLIC ACID TABLET (FP) PO SCH (10:24)
--- NOTE | 2018-11-14 14:02 | PN ---
[facility] CIWA - CIWA Score Nausea/Vomitin-No Nausea/No Vomiting Muscle Tremors: 2 Anxiety: 1-Mildly Anxious Agitation: 2 Paroxysmal Sweats: 1-Minimal Palms Moist Orientation: 0-Oriented Tacttile Disturbances: 0-None Auditory Disturbances: 0-None Visual Disturbances: 0-None Headache: 0-None Present CIWA-Ar Total Score: 6 [facility] COWS - Scale Resting Pulse: 2= [place] 101-120 Sweatin=Flushed/Facial Moisture Restless Observation: 1= Difficult to Sit Still Pupil Size: 0= Normal to Room Light Bone or Joint Aches: 1= Mild Discomfort Runny Nose/ Eye Tearin= Nasal Congestion GI Upset > 30mins: 0= None Tremor Observation of Outstretched Hands: 1= Tremor [place], Not Seen Yawning Observation: 2= >3x During Session Anxiety or Irritability: 1=Feels Anxious/Irritable Goose Flesh Skin: 0=Smooth Skin COWS Score: 11 [facility] Progress Note (SOAP) Subjective: anxiety sweats shakes interrupted sleep body aches Objective: 11/14/18 14:02 Vital Signs Temperature 98.1 F 11/14/18 13:52 Pulse Rate 111 H 11/14/18 13:52 Respiratory Rate 18 11/14/18 13:52 Blood Pressure 110/65 11/14/18 13:52 O2 Sat by Pulse Oximetry (%) Laboratory Tests 11/11/18 15:34 POC Urine HCG, Qual Negative aax3 ambulating no acute distress Assessment: 11/14/18 14:02 withdrawal sx Plan: continue detox increase fluids clonidine 0.1mg x one
[2018-11-14] MEDS ORDERED: cloNIDine HCL 0.1 MG TABLET PO ONE (14:03)
[2018-11-14 17:26] VITALS: BP 100/60; PULSE 94; TEMP 97.5
--- NOTE | 2018-11-14 19:11 | PN ---
[facility] Progress Note Note: Alert and oriented. In no signs of acute withdrawal. Patient states "the devil" making her want to leave. States this is the longest she has managed to stay in detox. Discussed overdose risks and prevention. Has a Narcan kit at [facility]/ someone who knows how to use. Discussed ways to naturally increase endorphins. Discussed the need to continue to try to work on sobriety. Patient leaving AMA.
--- NOTE | 2018-11-15 | DS ---
[facility] Detox Discharge Summary Admission Date: 11/11/18 Discharge Date: 11/14/18 - History Present History: Alcohol Dependence, Cocaine Dependence, Opioid Dependence Additional Comments: Patient presented w/ alcohol and heroin withdrawal symptoms. Pertinent Past History: 27 y/o F with PMH depression, psoriasis who presents for detox from heroin and alcohol. Also cocaine use. IVDU - Injects into neck, - Physical Exam Results Vital Signs: Vital Signs Temperature 97.5 F L 11/14/18 17:25 Pulse Rate 94 H 11/14/18 17:25 Respiratory Rate 18 11/14/18 17:25 Blood Pressure 100/60 11/14/18 17:25 O2 Sat by Pulse Oximetry (%) Pertinent Admission Physical Exam Findings: Patient admitted w/ symptoms of alcohol and heroin withdrawal. Laboratory Last Values POC Urine HCG, Qual Negative 11/11/18 15:34 labs reviewed. - Treatment Hospital Course: Detox Protocol Followed (Did not complete protocol. States physically ok but mentally not ready), Discharged Condition Good (Alert and oriented w/o acute withdrawal symptoms) - Medication Discharge Medications: Ambulatory Orders Quetiapine Fumarate [Seroquel -] 200 mg PO HS 09/22/18 - Diagnosis (1) Alcohol dependence with uncomplicated withdrawal Status: Acute (2) Anxiety and depression Status: Chronic (3) Insomnia Status: Chronic Qualifiers: Insomnia type: unspecified Qualified Code(s): G47.00 - Insomnia, unspecified (4) Opioid dependence with withdrawal Status: Acute (5) Cocaine dependence Status: Chronic Qualifiers: Substance use status: uncomplicated Qualified Code(s): F14.20 - Cocaine dependence, uncomplicated - AMA Did Patient Leave Against Medical Advice: Yes (Patient left despite encouragement. )
[2018-11-15] MEDS ORDERED: chlordiazePOXIDE HCL 10 MG CAPSULE PO SCH (05:00)
[2018-11-15] MEDS ORDERED: METHADONE HCL 10 MG TABLET (FOR DETOX USE ONLY) PO ONE (10:00)
[2018-11-16] MEDS ORDERED: chlordiazePOXIDE HCL 10 MG CAPSULE PO ONE (05:00)
[2018-11-16] MEDS ORDERED: METHADONE HCL 5 MG TABLET (FOR DETOX USE ONLY) PO ONE (06:00)
== END 2018-11-14 19:09 | disposition left against medical advice (07) | DRG 770 ==
LOC: YASAS 11:49 → Y6N 17:48
PROVIDERS: ADMIT Surgery; ATTEND Surgery
PROC: HZ2ZZZZ Detoxification Services for Substance Abuse Treatment (ICD-10-PCS; principal; 2018-11-11)
DX: F11.23 Opioid dependence with withdrawal (principal); F10.230 Alcohol dependence with withdrawal, uncomplicated; F14.20 Cocaine dependence, uncomplicated; F19.24 Other psychoactive substance dependence with psychoactive substance-induced mood disorder; F19.282 Other psychoactive substance dependence with psychoactive substance-induced sleep disorder; F34.1 Dysthymic disorder; F32.9 Major depressive disorder, single episode, unspecified; F41.8 Other specified anxiety disorders; G47.00 Insomnia, unspecified; L40.9 Psoriasis, unspecified; E86.0 Dehydration; R63.4 Abnormal weight loss; Z68.1 Body mass index [BMI] 19.9 or less, adult; Z59.0 Homelessness
CPT/HCPCS: 81025

== ENCOUNTER 2018-12-03 22:20 | Inpatient (IN) | payer OTHER ==
[2018-12-03 23:03] VITALS: BMI 16.7
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
[2018-12-04] MEDS ORDERED: MAGNESIUM CITRATE 300 ML BOTTLE PO PRN (00:27)
[2018-12-04] MEDS ORDERED: MAGNESIUM HYDROX 2400MG/30ML ORAL SUSPENSION 30 ML CUP PO PRN (00:27)
[2018-12-04] MEDS ORDERED: METHADONE HCL 10 MG TABLET (FOR DETOX USE ONLY) PO ONE (00:27)
[2018-12-04] MEDS ORDERED: cloNIDine HCL 0.1 MG TABLET PO PRN (00:27)
[2018-12-04] MEDS ORDERED: BISMUTH SUBSALICYLATE 524 MG/30 ML UD PO PRN (00:27)
[2018-12-04] MEDS ORDERED: chlordiazePOXIDE HCL 25 MG CAPSULE PO PRN (00:27)
[2018-12-04] MEDS ORDERED: METHOCARBAMOL 500 MG TABLET PO PRN (00:27)
[2018-12-04] MEDS ORDERED: MAG HYDROX/AL HYDROX/SIMETH 30 ML UNIT-DOSE CUP PO PRN (00:27)
[2018-12-04] MEDS ORDERED: MENTHOL/PHENOL 1 EACH UD MM PRN (00:27)
[2018-12-04] MEDS ORDERED: hydrOXYzine PAMOATE 25 MG CAPSULE (FP) PO PRN (00:27)
[2018-12-04] MEDS ORDERED: IBUPROFEN 400 MG TABLET (FP) PO PRN (00:27)
[2018-12-04] MEDS ORDERED: NICOTINE POLACRILEX 2 MG GUM BUC PRN (00:27)
[2018-12-04] MEDS ORDERED: ACETAMINOPHEN 325 MG TABLET (FP) PO PRN ×2 (00:27)
[2018-12-04] MEDS ORDERED: MELATONIN 5 MG TABLETS PO PRN (00:27)
[2018-12-04] MEDS: chlordiazePOXIDE HCL 25 MG CAPSULE PO SCH ×3 (06:30→17:37)
[2018-12-04] MEDS ORDERED: PRENATAL VITAMINS W/ FOLIC ACID TABLET (FP) PO SCH (10:00)
[2018-12-04] MEDS ORDERED: NICOTINE 14 MG/24 HOURS TOPICAL PATCH TD SCH (10:00)
--- NOTE | 2018-12-04 11:42 | EKG ---
Test Reason : Blood Pressure : / mmHG Vent. Rate : 055 BPM Atrial Rate : 055 BPM P-R Int : 154 ms QRS Dur : 100 ms QT Int : 442 ms P-R-T Axes : 045 070 063 degrees QTc Int : 422 ms SINUS BRADYCARDIA OTHERWISE NORMAL ECG WHEN COMPARED WITH ECG OF 10-JUL-2018 13:02, NONSPECIFIC T WAVE ABNORMALITY NOW EVIDENT IN ANTERIOR LEADS Confirmed by DREW ASHER, FLORECITA ([id number]) on 12/04/2018 11:41:45 AM Referred By: Hong Sinclair Confirmed By:FLORECITA RUSSELL MD
--- NOTE | 2018-12-04 13:23 | PN ---
S CIWA - CIWA Score Nausea/Vomitin-No Nausea/No Vomiting Muscle Tremors: 3 Anxiety: 4-Mod. Anxious/Guarded Agitation: 1-Slight > Activity Paroxysmal Sweats: 3 Orientation: 0-Oriented Tacttile Disturbances: 2-Mild Itch/Numbness/Burn Auditory Disturbances: 0-None Visual Disturbances: 2-Mild Sensitivity Headache: 0-None Present CIWA-Ar Total Score: 15 [facility] COWS - Scale Resting Pulse: 0= [place] 80 or Below Sweatin=Flushed/Facial Moisture Restless Observation: 0= Sits Still Pupil Size: 0= Normal to Room Light Bone or Joint Aches: 2= Severe Diffuse Aches Runny Nose/ Eye Tearin= Nasal Congestion GI Upset > 30mins: 1= Stomach Cramp Tremor Observation of Outstretched Hands: 2= Slight Tremor Visible Yawning Observation: 1= 1-2x During Session Anxiety or Irritability: 2=Irritable/Anxious Goose Flesh Skin: 3=Piloerection COWS Score: 14 [facility] Progress Note (SOAP) Subjective: Sweating, Tremors, Body Aches, Anxious. Objective: PATIENT A & O X 3, OBSERVED AMBULATING ON UNIT UNASSISTED. IN NO ACUTE DISTRESS. 12/04/18 13:24 Vital Signs Temperature 97.8 F 12/04/18 09:31 Pulse Rate 73 12/04/18 09:31 Respiratory Rate 18 12/04/18 09:31 Blood Pressure 90/57 L 12/04/18 09:31 O2 Sat by Pulse Oximetry (%) ADMISSION LAB RESULTS PENDING. LAB RESULTS FROM 09/23/2018 NOTED. 12/04/18 13:26 Assessment: 12/04/18 13:27 WITHDRAWAL SYMPTOMS. Plan: CONTINUE DETOX. INCREASE DAILY PO WATER INTAKE.
--- NOTE | 2018-12-04 13:27 | CONSULT ---
[facility] Psychiatric Consult - Data Date of interview: 12/04/18 Admission source: [facility] Identifying data: [employer] Mounter approached patient twice for psychiatric consultation but patient refused. Stated to proposal lead writer, " I do not need to talk to you. I'm too tired." Psychiatric consultation refused.
[2018-12-04] MEDS ORDERED: chlordiazePOXIDE HCL 25 MG CAPSULE PO SCH (17:00)
[2018-12-04 17:16] VITALS: BP 109/69; PULSE 74; TEMP 97
--- NOTE | 2018-12-04 20:52 | DS ---
[facility] Detox Discharge Summary Admission Date: 12/03/18 Discharge Date: 12/04/18 - History Additional Comments: Patient is leaving against medical advice. She did not give any reason for her action but states, "I just want to go home and I am not listening to you or anyone". Risks and consequences of her action reinforced. Patient is not actively withdrawing at this time. Vital signs stable Pertinent Past History: asthma, depression, anxiety, opioid dependence and alcohol dependence - Physical Exam Results Vital Signs: Vital Signs Temperature 97 F L 12/04/18 17:15 Pulse Rate 74 12/04/18 17:15 Respiratory Rate 16 12/04/18 17:15 Blood Pressure 109/69 12/04/18 17:15 O2 Sat by Pulse Oximetry (%) Pertinent Admission Physical Exam Findings: Opioid and alcohol withdrawal symptoms - Medication Discharge Medications: Ambulatory Orders NK [No Known Home Medication] 12/03/18 - Diagnosis (1) Alcohol dependence with uncomplicated withdrawal Status: Acute (2) Opioid dependence with withdrawal Status: Acute (3) Anxiety and depression Status: Chronic (4) Asthma Status: Chronic Qualifiers: Asthma severity: mild Asthma persistence: intermittent Asthma complication type: with status asthmaticus Qualified Code(s): J45.22 - Mild intermittent asthma with status asthmaticus (5) Cocaine dependence Status: Chronic Qualifiers: Substance use status: uncomplicated Qualified Code(s): F14.20 - Cocaine dependence, uncomplicated (6) Nicotine dependence Status: Chronic Qualifiers: Nicotine product type: cigarettes Substance use status: uncomplicated Qualified Code(s): F17.210 - Nicotine dependence, cigarettes, uncomplicated - AMA Did Patient Leave Against Medical Advice: Yes
[2018-12-04] MEDS ORDERED: THIAMINE HCL 100 MG TABLET (FP) PO SCH (22:00)
[2018-12-05] MEDS ORDERED: chlordiazePOXIDE HCL 25 MG CAPSULE PO SCH (05:00)
[2018-12-05] MEDS ORDERED: METHADONE (DETOX) 20 MG, METHADONE (DETOX) 5 MG PO ONE (10:00)
[2018-12-06] MEDS ORDERED: chlordiazePOXIDE HCL 10 MG CAPSULE PO PRN
[2018-12-06] MEDS ORDERED: chlordiazePOXIDE HCL 10 MG CAPSULE PO SCH (05:00)
[2018-12-06] MEDS ORDERED: METHADONE HCL 10 MG TABLET (FOR DETOX USE ONLY) PO ONE (10:00)
[2018-12-07] MEDS ORDERED: chlordiazePOXIDE HCL 10 MG CAPSULE PO SCH (05:00)
[2018-12-07] MEDS ORDERED: METHADONE (DETOX) 10 MG, METHADONE (DETOX) 5 MG PO ONE (10:00)
[2018-12-08] MEDS ORDERED: chlordiazePOXIDE HCL 10 MG CAPSULE PO ONE (05:00)
[2018-12-08] MEDS ORDERED: METHADONE HCL 10 MG TABLET (FOR DETOX USE ONLY) PO ONE (10:00)
[2018-12-09] MEDS ORDERED: METHADONE HCL 5 MG TABLET (FOR DETOX USE ONLY) PO ONE (06:00)
== END 2018-12-04 20:55 | disposition left against medical advice (07) | DRG 770 ==
LOC: YASAS 22:20 → Y3N 23:52
PROVIDERS: ADMIT Surgery; ATTEND Surgery
PROC: HZ2ZZZZ Detoxification Services for Substance Abuse Treatment (ICD-10-PCS; principal; 2018-12-03)
DX: F11.23 Opioid dependence with withdrawal (principal); F10.230 Alcohol dependence with withdrawal, uncomplicated; F14.20 Cocaine dependence, uncomplicated; F17.210 Nicotine dependence, cigarettes, uncomplicated; F41.9 Anxiety disorder, unspecified; F32.9 Major depressive disorder, single episode, unspecified; J45.22 Mild intermittent asthma with status asthmaticus; Z59.0 Homelessness
CPT/HCPCS: 93005; 93010

== ENCOUNTER 2019-01-08 08:09 | Inpatient (IN) | payer OTHER ==
[2019-01-08 08:27] VITALS: BMI 16.7
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
[2019-01-08] MEDS ORDERED: BISMUTH SUBSALICYLATE 262 MG/15 ML BTL PO PRN (09:36)
[2019-01-08] MEDS ORDERED: MAGNESIUM CITRATE 300 ML BOTTLE PO PRN (09:36)
[2019-01-08] MEDS ORDERED: ACETAMINOPHEN 325 MG TABLET (FP) PO PRN ×2 (09:36)
[2019-01-08] MEDS ORDERED: MAG HYDROX/AL HYDROX/SIMETH 30 ML UNIT-DOSE CUP PO PRN (09:36)
[2019-01-08] MEDS ORDERED: hydrOXYzine PAMOATE 25 MG CAPSULE (FP) PO PRN (09:36)
[2019-01-08] MEDS ORDERED: MAGNESIUM HYDROX 2400MG/30ML ORAL SUSPENSION 30 ML CUP PO PRN (09:36)
[2019-01-08] MEDS ORDERED: MENTHOL/PHENOL 1 EACH UD MM PRN (09:36)
[2019-01-08] MEDS ORDERED: cloNIDine HCL 0.1 MG TABLET PO PRN (09:46)
[2019-01-08] MEDS ORDERED: diazePAM 5 MG TABLET PO PRN (09:47)
[2019-01-08] MEDS: PRENATAL VITAMINS W/ FOLIC ACID TABLET (FP) PO SCH (12:01)
[2019-01-08] MEDS: chlordiazePOXIDE HCL 25 MG CAPSULE PO SCH ×2 (12:01→22:08)
[2019-01-08] MEDS ORDERED: diazePAM 5 MG TABLET PO SCH (14:00)
[2019-01-08 14:36] LABS: HEMATOCRIT 38.6 % (32.4-45.2); HEMOGLOBIN 12.9 GM/dL (10.7-15.3); MCH 29.7 pg (25.7-33.7); MCHC 33.5 g/dl (32.0-36.0); MEAN CELL VOLUME 88.8 fl (80-96); MEAN PLT VOLUME 9.4 fl (7.5-11.1); PLATELET COUNT 227 K/MM3 (134-434); RBC 4.35 M/mm3 (3.60-5.2); WHITE BLOOD COUNT 5.4 K/mm3 (4.0-10.0)
[2019-01-08 14:49] LABS: ALBUMIN 3.4 g/dl (3.4-5.0); BILIRUBIN,TOTAL 0.4 mg/dL (0.2-1); BLOOD UREA NITROGEN 14.7 mg/dL (7-18); CALCIUM 8.7 mg/dL (8.5-10.1); CREATININE 0.7 mg/dL (0.55-1.3); POTASSIUM 3.6 mmol/L (3.5-5.1); TOT PROT 6.6 g/dl (6.4-8.2)
[2019-01-08] MEDS: chlordiazePOXIDE HCL 10 MG CAPSULE PO PRN (19:49)
[2019-01-08] MEDS: MELATONIN 5 MG TABLETS PO PRN (22:08)
[2019-01-08] MEDS: THIAMINE HCL 100 MG TABLET (FP) PO SCH (22:08)
[2019-01-08] MEDS ORDERED: METHADONE HCL 10 MG TABLET (FOR DETOX USE ONLY) PO ONE (23:00)
[2019-01-09] MEDS: chlordiazePOXIDE HCL 25 MG CAPSULE PO SCH ×3 (04:33→21:09)
[2019-01-09] MEDS ORDERED: METHADONE HCL 5 MG TABLET (FOR DETOX USE ONLY) ONE (09:18)
[2019-01-09] MEDS ORDERED: METHADONE HCL 10 MG TABLET (FOR DETOX USE ONLY) ONE (09:18)
[2019-01-09] MEDS ORDERED: METHADONE (DETOX) 20 MG, METHADONE (DETOX) 5 MG PO ONE (10:00)
[2019-01-09] MEDS: PRENATAL VITAMINS W/ FOLIC ACID TABLET (FP) PO SCH (10:43)
[2019-01-09] MEDS: chlordiazePOXIDE HCL 10 MG CAPSULE PO PRN (10:48)
[2019-01-09] MEDS: IBUPROFEN 400 MG TABLET (FP) PO PRN ×2 (10:48→22:10)
--- NOTE | 2019-01-09 11:20 | PN ---
S CIWA - CIWA Score Nausea/Vomitin Muscle Tremors: 2 Anxiety: 2 Agitation: 0-Normal Activity Paroxysmal Sweats: 2 Orientation: 0-Oriented Tacttile Disturbances: 1-Very Mild Itch/Numbness Auditory Disturbances: 0-None Visual Disturbances: 1-Very Mild Sensitivity Headache: 1-Very Mild CIWA-Ar Total Score: 12 BHS COWS - Scale Resting Pulse: 0= [place] 80 or Below Sweatin= Chills/Flushing Restless Observation: 1= Difficult to Sit Still Pupil Size: 0= Normal to Room Light Bone or Joint Aches: 2= Severe Diffuse Aches Runny Nose/ Eye Tearin= Runny Nose/Eyes GI Upset > 30mins: 2= Nausea/Diarrhea Tremor Observation of Outstretched Hands: 1= Tremor [place], Not Seen Yawning Observation: 1= 1-2x During Session Anxiety or Irritability: 1=Feels Anxious/Irritable Goose Flesh Skin: 0=Smooth Skin COWS Score: 11 S Progress Note (SOAP) Subjective: Patient c/o of nausea, chills, back pain, interrupted sleep Objective: 01/09/19 11:17 Vital Signs Temperature 97.7 F 01/09/19 09:17 Pulse Rate 77 01/09/19 09:17 Respiratory Rate 18 01/09/19 09:17 Blood Pressure 119/76 01/09/19 09:17 O2 Sat by Pulse Oximetry (%) Laboratory Last Values WBC 5.4 K/mm3 (4.0-10.0) 01/08/19 13:05 RBC 4.35 M/mm3 (3.60-5.2) 01/08/19 13:05 Hgb 12.9 GM/dL (10.7-15.3) 01/08/19 13:05 Hct 38.6 % (32.4-45.2) 01/08/19 13:05 MCV 88.8 fl (80-96) 01/08/19 13:05 MCH 29.7 pg (25.7-33.7) 01/08/19 13:05 MCHC 33.5 g/dl (32.0-36.0) 01/08/19 13:05 RDW 16.0 % (11.6-15.6) H 01/08/19 13:05 Plt Count 227 K/MM3 (134-434) 01/08/19 13:05 MPV 9.4 fl (7.5-11.1) 01/08/19 13:05 Sodium 141 mmol/L (136-145) 01/08/19 13:05 Potassium 3.6 mmol/L (3.5-5.1) 01/08/19 13:05 Chloride 107 mmol/L (98-107) 01/08/19 13:05 Carbon Dioxide 28 mmol/L (21-32) 01/08/19 13:05 Anion Gap 7 MMOL/L (8-16) L 01/08/19 13:05 BUN 14.7 mg/dL (7-18) 01/08/19 13:05 Creatinine 0.7 mg/dL (0.55-1.3) 01/08/19 13:05 Est GFR (CKD-EPI)AfAm 135.70 01/08/19 13:05 Est GFR (CKD-EPI)NonAf 117.08 01/08/19 13:05 Random Glucose 123 mg/dL (74-106) H 01/08/19 13:05 Calcium 8.7 mg/dL (8.5-10.1) 01/08/19 13:05 Total Bilirubin 0.4 mg/dL (0.2-1) 01/08/19 13:05 AST 59 U/L (15-37) H 01/08/19 13:05 ALT 104 U/L (13-61) H 01/08/19 13:05 Alkaline Phosphatase 104 U/L (45-117) 01/08/19 13:05 Total Protein 6.6 g/dl (6.4-8.2) 01/08/19 13:05 Albumin 3.4 g/dl (3.4-5.0) 01/08/19 13:05 RPR Titer Nonreactive (NONREACTIVE) 01/08/19 13:05 Labs reviewed Patient is Aox3 no acute distress, thin EENT WNL skin intact, no edema or erythema full ROM, no gait disturbance, ambulating on the unit Plan: continue detox increase PO fluids MAT discussed with patient, reports plans to follow up with rehab post detox continue detox
[2019-01-09] MEDS: THIAMINE HCL 100 MG TABLET (FP) PO SCH (22:09)
[2019-01-09] MEDS: MELATONIN 5 MG TABLETS PO PRN (22:09)
[2019-01-10] MEDS ORDERED: chlordiazePOXIDE 5 MG CAPSULE PO SCH (05:00)
[2019-01-10] MEDS: IBUPROFEN 400 MG TABLET (FP) PO PRN ×2 (05:18→10:25)
[2019-01-10] MEDS ORDERED: diazePAM 5 MG TABLET PO SCH (06:00)
[2019-01-10 09:39] VITALS: BP 121/74; PULSE 91; TEMP 96.8
[2019-01-10] MEDS ORDERED: METHADONE HCL 10 MG TABLET (FOR DETOX USE ONLY) PO ONE (10:00)
--- NOTE | 2019-01-10 10:03 | PN ---
[facility] CIWA - CIWA Score Nausea/Vomitin-No Nausea/No Vomiting Muscle Tremors: 2 Anxiety: 3 Agitation: 0-Normal Activity Paroxysmal Sweats: 3 Orientation: 0-Oriented Tacttile Disturbances: 0-None Auditory Disturbances: 0-None Visual Disturbances: 0-None Headache: 2-Mild CIWA-Ar Total Score: 10 BHS COWS - Scale Resting Pulse: 1= [place] 81-100 Sweatin= Chills/Flushing Restless Observation: 1= Difficult to Sit Still Pupil Size: 0= Normal to Room Light Bone or Joint Aches: 2= Severe Diffuse Aches Runny Nose/ Eye Tearin= None GI Upset > 30mins: 0= None Tremor Observation of Outstretched Hands: 2= Slight Tremor Visible Yawning Observation: 1= 1-2x During Session Anxiety or Irritability: 2=Irritable/Anxious Goose Flesh Skin: 0=Smooth Skin COWS Score: 10 BHS Progress Note (SOAP) Subjective: c/o sweats, shakes, anxiety, irritability, and headache. Objective: 01/10/19 09:58 Vital Signs 01/10/19 01/10/19 01/10/19 03:30 07:01 09:38 Temperature 97.7 F 96.8 F L Pulse Rate 75 91 H Respiratory 18 16 16 Rate Blood Pressure 121/74 Lab Results WBC 5.4 K/mm3 (4.0-10.0) 01/08/19 13:05 RBC 4.35 M/mm3 (3.60-5.2) 01/08/19 13:05 Hgb 12.9 GM/dL (10.7-15.3) 01/08/19 13:05 Hct 38.6 % (32.4-45.2) 01/08/19 13:05 MCV 88.8 fl (80-96) 01/08/19 13:05 MCHC 33.5 g/dl (32.0-36.0) 01/08/19 13:05 RDW 16.0 % (11.6-15.6) H 01/08/19 13:05 Plt Count 227 K/MM3 (134-434) 01/08/19 13:05 Sodium 141 mmol/L (136-145) 01/08/19 13:05 Potassium 3.6 mmol/L (3.5-5.1) 01/08/19 13:05 Chloride 107 mmol/L (98-107) 01/08/19 13:05 Carbon Dioxide 28 mmol/L (21-32) 01/08/19 13:05 Anion Gap 7 MMOL/L (8-16) L 01/08/19 13:05 BUN 14.7 mg/dL (7-18) 01/08/19 13:05 Creatinine 0.7 mg/dL (0.55-1.3) 01/08/19 13:05 Random Glucose 123 mg/dL (74-106) H 01/08/19 13:05 Calcium 8.7 mg/dL (8.5-10.1) 01/08/19 13:05 Labs noted. Assessment: 01/10/19 10:03 AOX3, in no acute respiratory distress. Full ROM, ambulating in the unit. Withdrawal symptoms. Plan: Continue detox. Increase fluids.
[2019-01-10] MEDS: PRENATAL VITAMINS W/ FOLIC ACID TABLET (FP) PO SCH (10:23)
[2019-01-10] MEDS: chlordiazePOXIDE HCL 10 MG CAPSULE PO PRN (10:25)
[2019-01-11] MEDS ORDERED: chlordiazePOXIDE HCL 10 MG CAPSULE PO PRN
[2019-01-11] MEDS ORDERED: chlordiazePOXIDE HCL 10 MG CAPSULE PO SCH (05:00)
[2019-01-11] MEDS ORDERED: diazePAM 5 MG TABLET PO ONE (06:00)
[2019-01-11] MEDS ORDERED: METHADONE (DETOX) 10 MG, METHADONE (DETOX) 5 MG PO ONE (10:00)
[2019-01-12] MEDS ORDERED: chlordiazePOXIDE HCL 10 MG CAPSULE PO ONE (05:00)
[2019-01-12] MEDS ORDERED: METHADONE HCL 10 MG TABLET (FOR DETOX USE ONLY) PO ONE (10:00)
[2019-01-13] MEDS ORDERED: METHADONE HCL 5 MG TABLET (FOR DETOX USE ONLY) PO ONE (06:00)
== END 2019-01-10 11:40 | disposition left against medical advice (07) | DRG 770 ==
LOC: YASAS 08:09 → Y6N 10:11
PROVIDERS: ADMIT Surgery; ATTEND Surgery
PROC: HZ2ZZZZ Detoxification Services for Substance Abuse Treatment (ICD-10-PCS; principal; 2019-01-08)
DX: F11.23 Opioid dependence with withdrawal (principal); F11.220 Opioid dependence with intoxication, uncomplicated; F10.230 Alcohol dependence with withdrawal, uncomplicated; F14.20 Cocaine dependence, uncomplicated; F17.210 Nicotine dependence, cigarettes, uncomplicated
CPT/HCPCS: 36415; 80053; 85027; 86593

== ENCOUNTER 2019-01-14 12:49 | Inpatient (IN) | payer OTHER ==
[2019-01-14 15:17] VITALS: BMI 16.4
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
--- NOTE | 2019-01-14 17:06 | PN ---
Teaching Attending Note Name of Resident: Robinson Cervantes ATTENDING PHYSICIAN STATEMENT I saw and evaluated the patient. I reviewed the resident's note and discussed the case with the resident. I agree with the resident's findings and plan as documented. SUBJECTIVE: 28 yo with multiple visits to [facility], last here last month- stayed for 2 days. Here for opioid IV and alcohol use disorders. OBJECTIVE: Vital Signs - 24 hr 01/14/19 15:12 Temperature 97.8 F Pulse Rate 68 Respiratory 16 Rate Blood Pressure 110/58 L sleepy ASSESSMENT AND PLAN: Opioid use disorder- methadone detox protocol.
[2019-01-14] MEDS ORDERED: ACETAMINOPHEN 325 MG TABLET (FP) PO PRN ×2 (17:16)
[2019-01-14] MEDS ORDERED: hydrOXYzine PAMOATE 25 MG CAPSULE (FP) PO PRN (17:16)
[2019-01-14] MEDS ORDERED: MAGNESIUM CITRATE 300 ML BOTTLE PO PRN (17:16)
[2019-01-14] MEDS ORDERED: MAGNESIUM HYDROX 2400MG/30ML ORAL SUSPENSION 30 ML CUP PO PRN (17:16)
[2019-01-14] MEDS ORDERED: MAG HYDROX/AL HYDROX/SIMETH 30 ML UNIT-DOSE CUP PO PRN (17:16)
[2019-01-14] MEDS ORDERED: BISMUTH SUBSALICYLATE 524 MG/30 ML UD PO PRN (17:16)
[2019-01-14] MEDS ORDERED: clonazePAM 0.5 MG TABLET PO PRN (17:16)
[2019-01-14] MEDS ORDERED: IBUPROFEN 400 MG TABLET (FP) PO PRN (17:16)
[2019-01-14] MEDS ORDERED: cloNIDine HCL 0.1 MG TABLET PO PRN (17:16)
[2019-01-14] MEDS ORDERED: MELATONIN 5 MG TABLETS PO PRN (17:16)
[2019-01-14] MEDS ORDERED: MENTHOL/PHENOL 1 EACH UD MM PRN (17:16)
[2019-01-14] MEDS ORDERED: METHADONE HCL 10 MG TABLET (FOR DETOX USE ONLY) PO ONE (18:15)
[2019-01-14] MEDS: THIAMINE HCL 100 MG TABLET (FP) PO SCH (22:57)
[2019-01-15] MEDS ORDERED: METHADONE HCL 10 MG TABLET (FOR DETOX USE ONLY) ONE (08:36)
[2019-01-15] MEDS ORDERED: METHADONE HCL 5 MG TABLET (FOR DETOX USE ONLY) ONE (08:37)
[2019-01-15] MEDS ORDERED: METHADONE (DETOX) 20 MG, METHADONE (DETOX) 5 MG PO ONE (10:00)
[2019-01-15] MEDS: METHOCARBAMOL 500 MG TABLET PO PRN ×2 (10:21→22:12)
[2019-01-15] MEDS: PRENATAL VITAMINS W/ FOLIC ACID TABLET (FP) PO SCH (10:21)
[2019-01-15 10:49] LABS: HEMATOCRIT 40.4 % (32.4-45.2); HEMOGLOBIN 13.7 GM/dL (10.7-15.3); MCH 29.7 pg (25.7-33.7); MCHC 33.9 g/dl (32.0-36.0); MEAN CELL VOLUME 87.7 fl (80-96); MEAN PLT VOLUME 9.4 fl (7.5-11.1); PLATELET COUNT 214 K/MM3 (134-434); RDW 15.1 % (11.6-15.6); WHITE BLOOD COUNT 4.8 K/mm3 (4.0-10.0)
[2019-01-15 11:17] LABS: ALBUMIN 3.4 g/dl (3.4-5.0); BILIRUBIN,TOTAL 0.5 mg/dL (0.2-1); BLOOD UREA NITROGEN 11.1 mg/dL (7-18); CALCIUM 9.2 mg/dL (8.5-10.1); CREATININE 0.7 mg/dL (0.55-1.3); TOT PROT 6.7 g/dl (6.4-8.2)
--- NOTE | 2019-01-15 12:56 | CONSULT ---
[facility] Psychiatric Consult - Data Date of interview: 01/15/19 Identifying data: [employer] approached patient for psychiatric consultation. Patient refused to be seen. Stated "No" and returned to sleep.Psychiatric consultation refused.
--- NOTE | 2019-01-15 17:14 | PN ---
S CIWA - CIWA Score Nausea/Vomitin-No Nausea/No Vomiting Muscle Tremors: 2 Anxiety: 4-Mod. Anxious/Guarded Agitation: 2 Paroxysmal Sweats: 3 Orientation: 2-Disoriented Date<2 days Tacttile Disturbances: 1-Very Mild Itch/Numbness Auditory Disturbances: 0-None Visual Disturbances: 1-Very Mild Sensitivity Headache: 0-None Present CIWA-Ar Total Score: 15 BHS COWS - Scale Resting Pulse: 0= [place] 80 or Below Sweatin= Chills/Flushing Restless Observation: 1= Difficult to Sit Still Pupil Size: 0= Normal to Room Light Bone or Joint Aches: 2= Severe Diffuse Aches Runny Nose/ Eye Tearin= None GI Upset > 30mins: 0= None Tremor Observation of Outstretched Hands: 2= Slight Tremor Visible Yawning Observation: 1= 1-2x During Session Anxiety or Irritability: 2=Irritable/Anxious Goose Flesh Skin: 3=Piloerection COWS Score: 12 BHS Progress Note (SOAP) Subjective: Body Aches, Interrupted Sleep, Sweating, Chills, Anxious. Objective: PATIENT A & O X 2 (UNCERTAIN ABOUT CURRENT DAY/ DATE). PATIENT OBSERVED AMBULATING ON DETOX UNIT UNASSISTED. IN NO ACUTE DISTRESS. 01/15/19 17:11 Vital Signs Temperature 98.6 F 01/15/19 13:16 Pulse Rate 63 01/15/19 13:16 Respiratory Rate 18 01/15/19 13:16 Blood Pressure 112/77 01/15/19 13:16 O2 Sat by Pulse Oximetry (%) Laboratory Tests 01/14/19 01/15/19 01/15/19 16:10 08:00 08:00 WBC 4.8 RBC 4.60 Hgb 13.7 Hct 40.4 MCV 87.7 MCH 29.7 MCHC 33.9 RDW 15.1 Plt Count 214 MPV 9.4 Sodium 141 Potassium 4.0 Chloride 105 Carbon Dioxide 29 Anion Gap 6 L BUN 11.1 Creatinine 0.7 Est GFR (CKD-EPI)AfAm 135.70 Est GFR (CKD-EPI)NonAf 117.08 Random Glucose 86 Calcium 9.2 Total Bilirubin 0.5 AST 82 H ALT 122 H Alkaline Phosphatase 100 Total Protein 6.7 Albumin 3.4 POC Urine HCG, Qual Negative RPR Titer 01/15/19 08:00 WBC RBC Hgb Hct MCV MCH MCHC RDW Plt Count MPV Sodium Potassium Chloride Carbon Dioxide Anion Gap BUN Creatinine Est GFR (CKD-EPI)AfAm Est GFR (CKD-EPI)NonAf Random Glucose Calcium Total Bilirubin AST ALT Alkaline Phosphatase Total Protein Albumin POC Urine HCG, Qual RPR Titer Nonreactive LABS NOTED. PATIENT HAS HAD ELEVATED AST AND ALT LEVELS ON PREVIOUS ADMISSIONS. 01/15/19 17:13 Assessment: 01/15/19 17:12 WITHDRAWAL SYMPTOMS. ELEVATED ALT LEVEL. ELEVATED AST LEVEL. 01/15/19 17:12 Plan: CONTINUE DETOX.
[2019-01-15] MEDS: THIAMINE HCL 100 MG TABLET (FP) PO SCH (22:11)
[2019-01-16] MEDS ORDERED: METHADONE HCL 10 MG TABLET (FOR DETOX USE ONLY) PO ONE (10:00)
[2019-01-16] MEDS ORDERED: chlordiazePOXIDE HCL 25 MG CAPSULE PO ONE (10:21)
[2019-01-16] MEDS ORDERED: chlordiazePOXIDE HCL 10 MG CAPSULE PO PRN (10:21)
[2019-01-16] MEDS: PRENATAL VITAMINS W/ FOLIC ACID TABLET (FP) PO SCH (10:22)
[2019-01-16] MEDS ORDERED: traZODone HCL 50 MG TABLET (FP) PO PRN (10:27)
[2019-01-16] MEDS: chlordiazePOXIDE HCL 25 MG CAPSULE PO SCH ×2 (13:58→22:07)
--- NOTE | 2019-01-16 15:34 | PN ---
S CIWA - CIWA Score Nausea/Vomitin Muscle Tremors: None Anxiety: 4-Mod. Anxious/Guarded Agitation: 2 Paroxysmal Sweats: 3 Orientation: 0-Oriented Tacttile Disturbances: 0-None Auditory Disturbances: 0-None Visual Disturbances: 0-None Headache: 0-None Present CIWA-Ar Total Score: 14 BHS COWS - Scale Resting Pulse: 1= [place] 81-100 Sweatin= Chills/Flushing Restless Observation: 1= Difficult to Sit Still Pupil Size: 0= Normal to Room Light Bone or Joint Aches: 2= Severe Diffuse Aches Runny Nose/ Eye Tearin= None GI Upset > 30mins: 3= Vomiting/Diarrhea Tremor Observation of Outstretched Hands: 0= None Yawning Observation: 1= 1-2x During Session Anxiety or Irritability: 2=Irritable/Anxious Goose Flesh Skin: 3=Piloerection COWS Score: 14 S Progress Note (SOAP) Subjective: Anxious, Vomiting, Sweating, Fatigue, Body Aches, Interrupted Sleep. Objective: PATIENT A & O X 3, OBSERVED AMBULATING ON DETOX UNIT UNASSISTED. IN NO ACUTE DISTRESS. 01/16/19 15:35 Vital Signs Temperature 98 F 01/16/19 13:32 Pulse Rate 89 01/16/19 13:32 Respiratory Rate 16 01/16/19 13:32 Blood Pressure 99/68 01/16/19 13:32 O2 Sat by Pulse Oximetry (%) Laboratory Tests 01/14/19 01/15/19 01/15/19 16:10 08:00 08:00 WBC 4.8 RBC 4.60 Hgb 13.7 Hct 40.4 MCV 87.7 MCH 29.7 MCHC 33.9 RDW 15.1 Plt Count 214 MPV 9.4 Sodium 141 Potassium 4.0 Chloride 105 Carbon Dioxide 29 Anion Gap 6 L BUN 11.1 Creatinine 0.7 Est GFR (CKD-EPI)AfAm 135.70 Est GFR (CKD-EPI)NonAf 117.08 Random Glucose 86 Calcium 9.2 Total Bilirubin 0.5 AST 82 H ALT 122 H Alkaline Phosphatase 100 Total Protein 6.7 Albumin 3.4 POC Urine HCG, Qual Negative RPR Titer 01/15/19 08:00 WBC RBC Hgb Hct MCV MCH MCHC RDW Plt Count MPV Sodium Potassium Chloride Carbon Dioxide Anion Gap BUN Creatinine Est GFR (CKD-EPI)AfAm Est GFR (CKD-EPI)NonAf Random Glucose Calcium Total Bilirubin AST ALT Alkaline Phosphatase Total Protein Albumin POC Urine HCG, Qual RPR Titer Nonreactive LABS NOTED. Assessment: 01/16/19 15:36 WITHDRAWAL SYMPTOMS. ELEVATED ALT LEVEL. ELEVATED AST LEVEL. Plan: CONTINUE DETOX. INCREASE DAILY PO WATER INTAKE. PATIENT REPORT THAT SHE DRINKS APPROX. 1.5 PINTS OF HARD LIQUOR ON A DAILY BASIS AND THAT SHE IS FEELING SIGNIFICANT WITHDRAWAL SYMPTOMS A RESULT OF THAT. PATIENT REPORTS THAT PRN KLONOPIN IS CLEARLY NOT SUFFICIENT TO HELP HER MANAGE HER WITHDRAWAL SFROM ALCOHOL AT THIS TIME. AT PATIENT'S REQUEST, MODIFIED LIBRIUM DETOX PROTOCOL ORDERED.
[2019-01-16] MEDS: THIAMINE HCL 100 MG TABLET (FP) PO SCH (22:07)
[2019-01-17] MEDS: chlordiazePOXIDE 5 MG CAPSULE PO SCH ×2 (05:30→13:09)
[2019-01-17] MEDS ORDERED: METHADONE HCL 5 MG TABLET (FOR DETOX USE ONLY) ONE (08:34)
[2019-01-17] MEDS ORDERED: METHADONE HCL 10 MG TABLET (FOR DETOX USE ONLY) ONE (08:34)
[2019-01-17] MEDS ORDERED: METHADONE (DETOX) 10 MG, METHADONE (DETOX) 5 MG PO ONE (10:00)
[2019-01-17] MEDS: PRENATAL VITAMINS W/ FOLIC ACID TABLET (FP) PO SCH (10:12)
[2019-01-17] MEDS ORDERED: chlordiazePOXIDE HCL 10 MG CAPSULE PO PRN (10:25)
--- NOTE | 2019-01-17 18:09 | PN ---
S CIWA - CIWA Score Nausea/Vomitin-No Nausea/No Vomiting Muscle Tremors: None Anxiety: 3 Agitation: 0-Normal Activity Paroxysmal Sweats: 3 Orientation: 0-Oriented Tacttile Disturbances: 1-Very Mild Itch/Numbness Auditory Disturbances: 0-None Visual Disturbances: 2-Mild Sensitivity Headache: 0-None Present CIWA-Ar Total Score: 9 S COWS - Scale Resting Pulse: 0= [place] 80 or Below Sweatin=Flushed/Facial Moisture Restless Observation: 0= Sits Still Pupil Size: 0= Normal to Room Light Bone or Joint Aches: 2= Severe Diffuse Aches Runny Nose/ Eye Tearin= None GI Upset > 30mins: 1= Stomach Cramp Tremor Observation of Outstretched Hands: 0= None Yawning Observation: 1= 1-2x During Session Anxiety or Irritability: 2=Irritable/Anxious Goose Flesh Skin: 0=Smooth Skin COWS Score: 8 S Progress Note (SOAP) Subjective: Sweating, Fatigue, Body Aches, Anxious, Interrupted Sleep. Objective: PATIENT A & O X 3, OBSERVED AMBULATING ON DETOX UNIT UNASSISTED. IN NO ACUTE DISTRESS. 01/17/19 18:09 Vital Signs Temperature 97.0 F L 01/17/19 13:36 Pulse Rate 80 01/17/19 13:36 Respiratory Rate 18 01/17/19 13:36 Blood Pressure 94/61 01/17/19 13:36 O2 Sat by Pulse Oximetry (%) Laboratory Tests 01/14/19 01/15/19 01/15/19 16:10 08:00 08:00 WBC 4.8 RBC 4.60 Hgb 13.7 Hct 40.4 MCV 87.7 MCH 29.7 MCHC 33.9 RDW 15.1 Plt Count 214 MPV 9.4 Sodium 141 Potassium 4.0 Chloride 105 Carbon Dioxide 29 Anion Gap 6 L BUN 11.1 Creatinine 0.7 Est GFR (CKD-EPI)AfAm 135.70 Est GFR (CKD-EPI)NonAf 117.08 Random Glucose 86 Calcium 9.2 Total Bilirubin 0.5 AST 82 H ALT 122 H Alkaline Phosphatase 100 Total Protein 6.7 Albumin 3.4 POC Urine HCG, Qual Negative RPR Titer 01/15/19 08:00 WBC RBC Hgb Hct MCV MCH MCHC RDW Plt Count MPV Sodium Potassium Chloride Carbon Dioxide Anion Gap BUN Creatinine Est GFR (CKD-EPI)AfAm Est GFR (CKD-EPI)NonAf Random Glucose Calcium Total Bilirubin AST ALT Alkaline Phosphatase Total Protein Albumin POC Urine HCG, Qual RPR Titer Nonreactive LABS NOTED. Assessment: 01/17/19 18:10 WITHDRAWAL SYMPTOMS. ELEVATED AST LEVEL. ELEVATED ALT LEVEL. Plan: CONTINUE DETOX. INCREASE DAILY PO WATER INTAKE. PRN HS TRAZODONE FOR INSOMNIA.
[2019-01-17 18:15] VITALS: BP 91/58; PULSE 76; TEMP 97.8
[2019-01-18] MEDS ORDERED: chlordiazePOXIDE HCL 10 MG CAPSULE PO SCH (05:00)
[2019-01-18] MEDS ORDERED: METHADONE HCL 10 MG TABLET (FOR DETOX USE ONLY) PO ONE (10:00)
[2019-01-19] MEDS ORDERED: chlordiazePOXIDE HCL 10 MG CAPSULE PO ONE (05:00)
[2019-01-19] MEDS ORDERED: METHADONE HCL 5 MG TABLET (FOR DETOX USE ONLY) PO ONE (06:00)
== END 2019-01-17 18:05 | disposition left against medical advice (07) | DRG 770 ==
LOC: YASAS 12:49 → Y3N 17:53
PROVIDERS: ADMIT Surgery; ATTEND Surgery
PROC: HZ2ZZZZ Detoxification Services for Substance Abuse Treatment (ICD-10-PCS; principal; 2019-01-14)
DX: F10.230 Alcohol dependence with withdrawal, uncomplicated (principal); F11.23 Opioid dependence with withdrawal; F14.20 Cocaine dependence, uncomplicated; F17.210 Nicotine dependence, cigarettes, uncomplicated; F19.282 Other psychoactive substance dependence with psychoactive substance-induced sleep disorder; F19.24 Other psychoactive substance dependence with psychoactive substance-induced mood disorder; F41.8 Other specified anxiety disorders; F32.9 Major depressive disorder, single episode, unspecified; F51.05 Insomnia due to other mental disorder; L40.9 Psoriasis, unspecified; R94.5 Abnormal results of liver function studies
CPT/HCPCS: 36415; 80053; 81025; 85027; 86593

== ENCOUNTER 2019-03-17 14:56 | Inpatient (IN) | payer OTHER ==
[2019-03-17 16:42] VITALS: BMI 17.0
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
[2019-03-17] MEDS ORDERED: BISMUTH SUBSALICYLATE 524 MG/30 ML UD PO PRN (19:51)
[2019-03-17] MEDS ORDERED: MAGNESIUM CITRATE 300 ML BOTTLE PO PRN (19:51)
[2019-03-17] MEDS ORDERED: MAG HYDROX/AL HYDROX/SIMETH 30 ML UNIT-DOSE CUP PO PRN (19:51)
[2019-03-17] MEDS ORDERED: MENTHOL/PHENOL 1 EACH UD MM PRN (19:51)
[2019-03-17] MEDS ORDERED: MAGNESIUM HYDROX 2400MG/30ML ORAL SUSPENSION 30 ML CUP PO PRN (19:51)
[2019-03-17] MEDS ORDERED: NICOTINE POLACRILEX 2 MG GUM BUC PRN (19:51)
[2019-03-17] MEDS ORDERED: diazePAM 5 MG TABLET PO ONE (19:51)
[2019-03-17] MEDS ORDERED: ACETAMINOPHEN 325 MG TABLET (FP) PO PRN ×2 (19:51)
[2019-03-17] MEDS ORDERED: diazePAM 5 MG TABLET PO PRN (19:51)
[2019-03-17] MEDS ORDERED: IBUPROFEN 400 MG TABLET (FP) PO PRN (19:51)
[2019-03-17] MEDS ORDERED: MELATONIN 5 MG TABLETS PO PRN (19:51)
[2019-03-17] MEDS ORDERED: MINERAL OIL/PETROLAT/WATER TOPICAL CREAM 454 GM JAR TP PRN (20:02)
[2019-03-17] MEDS ORDERED: ALBUTEROL SO4 0.083% IH SOL 2.5 MG/3 ML VIAL.NEB. NEB PRN (21:59)
[2019-03-17] MEDS: THIAMINE HCL 100 MG TABLET (FP) PO SCH (22:10)
[2019-03-17] MEDS: diazePAM 5 MG TABLET PO SCH (22:10)
[2019-03-17] MEDS: guaiFENesin 200 MG/10 ML 10 ML UNIT-DOSE CUPS PO SCH (22:10)
[2019-03-17] MEDS ORDERED: METHADONE HCL 10 MG TABLET (FOR DETOX USE ONLY) PO ONE (23:00)
[2019-03-17] MEDS ORDERED: QUEtiapine FUMARATE 50 MG TABLET PO ONE (23:00)
[2019-03-18] MEDS: guaiFENesin 200 MG/10 ML 10 ML UNIT-DOSE CUPS PO SCH ×4 (04:37→20:12)
[2019-03-18] MEDS: diazePAM 5 MG TABLET PO SCH ×3 (06:49→22:10)
[2019-03-18] MEDS ORDERED: METHADONE HCL 5 MG TABLET (FOR DETOX USE ONLY) PO ONE (10:00)
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
[2019-03-18 10:31] LABS: HEMATOCRIT 37.9 % (32.4-45.2); HEMOGLOBIN 12.6 GM/dL (10.7-15.3); MCH 28.9 pg (25.7-33.7); MCHC 33.3 g/dl (32.0-36.0); MEAN CELL VOLUME 86.8 fl (80-96); MEAN PLT VOLUME 8.2 fl (7.5-11.1); PLATELET COUNT 227 K/MM3 (134-434); RBC 4.37 M/mm3 (3.60-5.2); WHITE BLOOD COUNT 3.8 K/mm3 (4.0-10.0)
[2019-03-18] MEDS: PRENATAL VITAMINS W/ FOLIC ACID TABLET (FP) PO SCH (10:36)
[2019-03-18 10:57] LABS: ALBUMIN 3.3 g/dl (3.4-5.0); BILIRUBIN,TOTAL 0.2 mg/dL (0.2-1); BLOOD UREA NITROGEN 10.8 mg/dL (7-18); CALCIUM 8.9 mg/dL (8.5-10.1); CREATININE 0.6 mg/dL (0.55-1.3); POTASSIUM 4.1 mmol/L (3.5-5.1); TOT PROT 6.9 g/dl (6.4-8.2)
--- NOTE | 2019-03-18 11:07 | PN ---
[facility] CIWA - CIWA Score Nausea/Vomitin-No Nausea/No Vomiting Muscle Tremors: 3 Anxiety: 3 Agitation: 4-Moderately Restless Paroxysmal Sweats: 3 Orientation: 0-Oriented Tacttile Disturbances: 0-None Auditory Disturbances: 0-None Visual Disturbances: 0-None Headache: 0-None Present CIWA-Ar Total Score: 13 BHS COWS - Scale Resting Pulse: 0= [place] 80 or Below Sweatin= Chills/Flushing Restless Observation: 0= Sits Still Pupil Size: 0= Normal to Room Light Bone or Joint Aches: 2= Severe Diffuse Aches Runny Nose/ Eye Tearin= Nasal Congestion GI Upset > 30mins: 0= None Tremor Observation of Outstretched Hands: 1= Tremor Streator, Not Seen Yawning Observation: 1= 1-2x During Session Anxiety or Irritability: 2=Irritable/Anxious Goose Flesh Skin: 3=Piloerection COWS Score: 11 [facility] Progress Note (SOAP) Subjective: sweats shakes irritable agitation interrupted sleep body aches nausea Objective: 03/18/19 11:05 Vital Signs Temperature 98.2 F 03/18/19 09:26 Pulse Rate 73 03/18/19 09:26 Respiratory Rate 18 03/18/19 09:26 Blood Pressure 100/66 03/18/19 09:26 O2 Sat by Pulse Oximetry (%) Laboratory Tests 03/18/19 03/18/19 08:00 08:00 WBC 3.8 L RBC 4.37 Hgb 12.6 Hct 37.9 MCV 86.8 MCH 28.9 MCHC 33.3 RDW 14.0 Plt Count 227 MPV 8.2 D Sodium 141 Potassium 4.1 Chloride 107 Carbon Dioxide 27 Anion Gap 7 L BUN 10.8 Creatinine 0.6 Est GFR (CKD-EPI)AfAm 142.76 Est GFR (CKD-EPI)NonAf 123.17 Random Glucose 128 H Calcium 8.9 Total Bilirubin 0.2 AST 129 H ALT 241 H Alkaline Phosphatase 85 Total Protein 6.9 Albumin 3.3 L labs noted elevated ast/alt; d/c tylenol aaox3 ambulating no acute distress repeat liver enzymes Assessment: 03/18/19 11:06 withdrawals Plan: continue detox increase fluids repeat liver enzymes
[2019-03-18] MEDS ORDERED: QUEtiapine FUMARATE 100 MG TABLET (FP) PO SCH (22:00)
[2019-03-18] MEDS: THIAMINE HCL 100 MG TABLET (FP) PO SCH (22:10)
[2019-03-19] MEDS: guaiFENesin 200 MG/10 ML 10 ML UNIT-DOSE CUPS PO SCH ×2 (05:11→09:05)
[2019-03-19] MEDS ORDERED: diazePAM 5 MG TABLET PO SCH (06:00)
[2019-03-19 06:47] VITALS: BP 114/80; PULSE 78; TEMP 97.3
[2019-03-19] MEDS: PRENATAL VITAMINS W/ FOLIC ACID TABLET (FP) PO SCH (09:06)
--- NOTE | 2019-03-19 09:40 | PN ---
[facility] Progress Note Note: pt states she is not ready for detox she wants to leave. Medical, nursing, counseling all tried to have pt stay and pt was advised that she is at risk of relapse, seizures, DTs, OD and or loss but she chose to sign out AMA.
--- NOTE | 2019-03-19 09:43 | DS ---
[facility] Detox Discharge Summary Admission Date: 03/17/19 - History Present History: Alcohol Dependence, Cannabis Dependence, Cocaine Dependence, Opioid Dependence, Pcp Dependence - Physical Exam Results Vital Signs: Vital Signs Temperature 97.3 F L 03/19/19 06:47 Pulse Rate 78 03/19/19 06:47 Respiratory Rate 16 03/19/19 06:47 Blood Pressure 114/80 03/19/19 06:47 O2 Sat by Pulse Oximetry (%) Pertinent Admission Physical Exam Findings: pt arrived in withdrawals Vital Signs Temperature 97.3 F L 03/19/19 06:47 Pulse Rate 78 03/19/19 06:47 Respiratory Rate 16 03/19/19 06:47 Blood Pressure 114/80 03/19/19 06:47 O2 Sat by Pulse Oximetry (%) Laboratory Tests 03/18/19 03/18/19 08:00 08:00 WBC 3.8 L RBC 4.37 Hgb 12.6 Hct 37.9 MCV 86.8 MCH 28.9 MCHC 33.3 RDW 14.0 Plt Count 227 MPV 8.2 D Sodium 141 Potassium 4.1 Chloride 107 Carbon Dioxide 27 Anion Gap 7 L BUN 10.8 Creatinine 0.6 Est GFR (CKD-EPI)AfAm 142.76 Est GFR (CKD-EPI)NonAf 123.17 Random Glucose 128 H Calcium 8.9 Total Bilirubin 0.2 AST 129 H ALT 241 H Alkaline Phosphatase 85 Total Protein 6.9 Albumin 3.3 L pt is aaox3 ambulating pt in withdrawals pt chose to sign out AMA. - Treatment Hospital Course: Rehab Referral Accepted - Medication Discharge Medications: Ambulatory Orders NK [No Known Home Medication] 12/03/18 - Diagnosis (1) Alcohol dependence with uncomplicated withdrawal Current Visit: Yes Status: Chronic (2) Cocaine dependence, uncomplicated Current Visit: Yes Status: Chronic (3) Dehydration Current Visit: Yes Status: Chronic (4) Opioid dependence with withdrawal Current Visit: Yes Status: Chronic (5) Substance-induced anxiety disorder Current Visit: Yes Status: Acute (6) Substance-induced sleep disorder Current Visit: Yes Status: Acute (7) Depressive disorder Current Visit: Yes Status: Chronic (8) History of insomnia Current Visit: Yes Status: Chronic (9) History of psoriasis Current Visit: Yes Status: Chronic (10) IV drug user Current Visit: Yes Status: Chronic (11) Nicotine dependence Current Visit: Yes Status: Chronic (12) Underweight Current Visit: Yes Status: Chronic (13) Substance induced mood disorder Current Visit: Yes Status: Ruled-out (14) Elevated alanine aminotransferase (ALT) level Current Visit: No Status: Acute (15) Elevated aspartate aminotransferase level Current Visit: No Status: Acute (16) Insomnia secondary to depression with anxiety Current Visit: No Status: Acute (17) Opioid dependence with intoxication Current Visit: No Status: Acute Qualifiers: Complication of substance-induced condition: uncomplicated Qualified Code(s ): F11.220 - Opioid dependence with intoxication, uncomplicated (18) Substance induced mood disorder Current Visit: No Status: Acute (19) Substance-induced sleep disorder Current Visit: No Status: Acute (20) Anxiety and depression Current Visit: No Status: Chronic (21) Asthma Current Visit: No Status: Chronic Qualifiers: Asthma severity: mild Asthma persistence: intermittent Asthma complication type: with status asthmaticus Qualified Code(s): J45.22 - Mild intermittent asthma with status asthmaticus (22) Cocaine dependence Current Visit: No Status: Chronic Qualifiers: Substance use status: uncomplicated Qualified Code(s): F14.20 - Cocaine dependence, uncomplicated (23) Cocaine use disorder Current Visit: No Status: Chronic (24) Depression (emotion) Current Visit: No Status: Chronic Qualifiers: Depression Type: dysthymia Qualified Code(s): F34.1 - Dysthymic disorder (25) Encounter for monitoring Suboxone maintenance therapy Current Visit: No Status: Chronic (26) Insomnia Current Visit: No Status: Chronic Qualifiers: Insomnia type: unspecified Qualified Code(s): G47.00 - Insomnia, unspecified (27) PCP (phencyclidine) abuse Current Visit: Yes Status: Chronic (28) Umbilical hernia Current Visit: No Status: Chronic Qualifiers: (29) Weight loss Current Visit: No Status: Chronic (30) Drug-induced mood disorder Current Visit: No Status: Suspected - AMA Did Patient Leave Against Medical Advice: Yes
[2019-03-19] MEDS ORDERED: METHADONE HCL 10 MG TABLET (FOR DETOX USE ONLY) PO ONE (10:00)
[2019-03-20] MEDS ORDERED: diazePAM 5 MG TABLET PO ONE (06:00)
[2019-03-20] MEDS ORDERED: METHADONE HCL 5 MG TABLET (FOR DETOX USE ONLY) PO ONE (06:00)
== END 2019-03-19 09:15 | disposition left against medical advice (07) | DRG 770 ==
LOC: YASAS 14:56 → Y6N 20:47
PROVIDERS: ADMIT Allergy & Immunology; ATTEND Allergy & Immunology
PROC: HZ2ZZZZ Detoxification Services for Substance Abuse Treatment (ICD-10-PCS; principal; 2019-03-17)
DX: F10.230 Alcohol dependence with withdrawal, uncomplicated (principal); F11.23 Opioid dependence with withdrawal; F14.20 Cocaine dependence, uncomplicated; F16.20 Hallucinogen dependence, uncomplicated; F12.20 Cannabis dependence, uncomplicated; F17.210 Nicotine dependence, cigarettes, uncomplicated; F19.280 Other psychoactive substance dependence with psychoactive substance-induced anxiety disorder; F19.282 Other psychoactive substance dependence with psychoactive substance-induced sleep disorder; F19.24 Other psychoactive substance dependence with psychoactive substance-induced mood disorder; F34.1 Dysthymic disorder; F51.05 Insomnia due to other mental disorder; F41.8 Other specified anxiety disorders; F32.9 Major depressive disorder, single episode, unspecified; J45.22 Mild intermittent asthma with status asthmaticus; E86.0 Dehydration; L40.9 Psoriasis, unspecified; K42.9 Umbilical hernia without obstruction or gangrene; G47.00 Insomnia, unspecified; R74.0 Nonspecific elevation of levels of transaminase and lactic acid dehydrogenase [LDH]; R05 Cough; R63.6 Underweight; Z68.1 Body mass index [BMI] 19.9 or less, adult; Z51.81 Encounter for therapeutic drug level monitoring
CPT/HCPCS: 36415; 80053; 85027